=== PATIENT | female | born 1945 | race Caucasian/White ===

== ENCOUNTER 2019-01-23 15:49 | Inpatient (IN) ==
[2019-01-23] MEDS ORDERED: cefTRIAXone 1,000 MG in Water for inj. (sterile) 10 ML IVP ONE (16:10)
[2019-01-23] MEDS ORDERED: methylPREDNISolone 125 MG/2 ML VIAL IVP ONE (16:10)
[2019-01-23] MEDS ORDERED: Azithromycin 250 MG TABLET PO ONE (16:10)
[2019-01-23] MEDS ORDERED: Ipratropium/Albuterol Neb 3 ML IH ONE ×2 (16:12→18:49)
[2019-01-23] MEDS ORDERED: 0.9 % Sodium Chloride 1,000 ML IVC ONE (16:12)
--- NOTE | 2019-01-23 16:12 | Emergency Department Note ---
Disposition Clinical Impression: Acute exacerbation of chronic obstructive airways disease, Elevated lactic acid level Community acquired pneumonia Qualifiers: Laterality: unspecified laterality Qualified Code(s): J18.9 - Pneumonia, unspecified organism Disposition: Admitted As Inpatient Condition: Fair Time of Disposition: 00:42 General Adult HPI - General Chief complaint: ED Shortness of Breath/Dyspnea Stated complaint: sob Time Seen by Provider: 01/23/19 16:03 - History of Present Illness Pain Scale: 8 - Related Data Home Medications Medication Instructions Recorded Confirmed Escitalopram Oxalate 10 mg PO DAILY 01/16/19 01/23/19 Fluticasone Propionate [Flonase 1 spr NS DAILY 01/16/19 01/23/19 Allergy Relief] Gabapentin [Neurontin] 100 mg PO TID 01/16/19 01/23/19 Ipratropium/Albuterol Neb [Duoneb] 3 ml IH Q4HR 01/16/19 01/23/19 Melatonin [Melatin] 6 mg PO HS 01/16/19 01/23/19 Trazodone HCl 50 mg PO QPM PRN 01/16/19 01/23/19 predniSONE [PredniSONE] 10 mg PO DAILY 01/16/19 01/23/19 risperiDONE [Risperidone] 1 mg PO BID 01/16/19 01/23/19 Acetaminophen [Tylenol] 325 mg PO Q4HR PRN 01/23/19 01/23/19 Albuterol Sulfate [Ventolin Hfa] 2 puff IH Q4HR PRN 01/23/19 01/23/19 Fluconazole [Diflucan] 100 mg PO DAILY 01/23/19 01/23/19 Fluticasone/Salmeterol [Advair 1 puff IH BID 01/23/19 01/23/19 250-50 Diskus] Haloperidol [Haldol] 2.5 mg PO DAILY PRN 01/23/19 01/23/19 Insulin Glargine [Lantus] 10 unit SQ QPM 01/23/19 01/23/19 Insulin LISPRO [HumaLOG] 2 - 10 units SQ TIDWM 01/23/19 01/23/19 Lidocaine HCl [Lidocaine HCl 15 ml MM TID PRN 01/23/19 01/23/19 Viscous] Metformin HCl [Fortamet] 1,000 mg PO BID 01/23/19 01/23/19 Nicotine Patch [Nicoderm] 14 mg TD DAILY 01/23/19 01/23/19 Polyethylene Glycol 3350 [MiraLAX] 17 gm PO DAILY 01/23/19 01/23/19 Tiotropium [Spiriva] 18 mcg IH DAILY 01/23/19 01/23/19 Allergies Allergy/AdvReac Type Severity Reaction Status Date / Time No Known Allergies Allergy Verified 01/23/19 15:56 Past Medical History - Past Medical History Medical history: Reports: diabetes, TIA Psychiatric history: Reports: anxiety, bipolar, PTSD, schizophrenia, previous psychiatric hospitalization - Social History Smoking Status: Unknown if ever smoked Smokeless Tobacco Status: No Alcohol use: Reports: none Drug use: Reports: none Course Vital Signs Temperature 100.4 F H 01/23/19 15:56 Pulse Rate 102 01/23/19 15:56 Respiratory Rate 24 01/23/19 15:56 Blood Pressure 134/63 01/23/19 15:56 O2 Sat by Pulse Oximetry 96 01/23/19 15:56 Temperature 98.7 F 01/24/19 00:23 Pulse Rate 92 01/24/19 00:23 Respiratory Rate 17 01/24/19 00:23 Blood Pressure 151/69 01/24/19 00:23 O2 Sat by Pulse Oximetry 95 01/24/19 00:23 Oxygen Delivery Oxygen Delivery Nasal Cannula Medical Decision Making - Lab Data Result diagrams: 01/23/19 16:45 01/23/19 16:45 Lab Results 01/23/19 01/23/19 01/23/19 Range/Units 10:45 16:45 16:45 WBC 12.8 H (4.3-11.1) K/mcL RBC 3.54 L (3.82-4.97) M/mcL Hgb 10.1 L (11.5-15.4) g/dL Hct 34.0 L (35.3-44.9) % MCV 96.0 (83.0-100.0) fL MCH 28.5 (28.0-33.3) pg MCHC 29.7 L (31.6-35.5) g/dL RDW 15.2 H (11.5-14.5) % Plt Count 281 (140-400) K/mcL MPV 9.6 (9.4-12.4) fL Immature Gran % 0.8 (0-4) % Seg Neutrophils % 80.0 % Lymphocytes % 11.7 % Monocytes % 7.2 % Eosinophils % 0.0 % Basophils % 0.3 % Neutrophils # 10.2 H (1.6-8.9) K/mcL Lymphocytes # 1.5 (0.6-4.6) K/mcL Monocytes # 0.9 (0.0-1.3) K/mcL Eosinophils # 0.0 (0.0-0.6) K/mcL Basophils # 0.0 (0.0-0.2) K/mcL Sodium 145 (136-145) mEq/L Potassium 4.3 (3.5-5.1) mEq/L Chloride 96 L (98-107) mEq/L Carbon Dioxide 38 H (23-29) mEq/L BUN 19 (8-23) mg/dL Creatinine 0.73 (0.60-1.20) mg/dL Est GFR ( Amer) > 60 (> 60) Est GFR (Non-Af Amer) > 60 (> 60) BUN/Creatinine Ratio 26 (6-26) Glucose 155 H (70-105) mg/dL Calculated Osmolality 305 H (280-300) Lactic Acid 5.0 H* (0.5-2.2) mmol/L Calcium 9.4 (8.6-10.3) mg/dL Troponin I < 0.03 (< 0.04) ng/mL B-Natriuretic Peptide (Less than 100) pg/mL Urine Color (Yellow) Urine Clarity (Clear) Urine pH (5.0-8.0) pH Units Ur Specific [place] (1.010-1.025) Urine Protein (Neg-Trace) mg/dL Urine Glucose (UA) (Normal) mg/dL Urine Ketones (Negative) mg/dL Urine Blood (Negative) Urine Nitrite (Negative) Urine Bilirubin (Negative) Urine Urobilinogen (Normal) mg/dL Ur Leukocyte Esterase (Negative) Urine Microscopic RBC (0-3) per hpf Urine Microscopic WBC (0-3) per hpf Ur Squamous Epith Cells (None-Few) per lpf Urine Bacteria (None-Few) per hpf Hyaline Casts (None-Few) per lpf Ur Culture Indicated? (NO) 01/23/19 01/23/19 01/23/19 Range/Units 16:45 18:16 19:24 WBC (4.3-11.1) K/mcL RBC (3.82-4.97) M/mcL Hgb (11.5-15.4) g/dL Hct (35.3-44.9) % MCV (83.0-100.0) fL MCH (28.0-33.3) pg MCHC (31.6-35.5) g/dL RDW (11.5-14.5) % Plt Count (140-400) K/mcL MPV (9.4-12.4) fL Immature Gran % (0-4) % Seg Neutrophils % % Lymphocytes % % Monocytes % % Eosinophils % % Basophils % % Neutrophils # (1.6-8.9) K/mcL Lymphocytes # (0.6-4.6) K/mcL Monocytes # (0.0-1.3) K/mcL Eosinophils # (0.0-0.6) K/mcL Basophils # (0.0-0.2) K/mcL Sodium (136-145) mEq/L Potassium (3.5-5.1) mEq/L Chloride (98-107) mEq/L Carbon Dioxide (23-29) mEq/L BUN (8-23) mg/dL Creatinine (0.60-1.20) mg/dL Est GFR ( Amer) (> 60) Est GFR (Non-Af Amer) (> 60) BUN/Creatinine Ratio (6-26) Glucose (70-105) mg/dL Calculated Osmolality (280-300) Lactic Acid 3.9 H (0.5-2.2) mmol/L Calcium (8.6-10.3) mg/dL Troponin I (< 0.04) ng/mL B-Natriuretic Peptide 41 (Less than 100) pg/mL Urine Color Yellow (Yellow) Urine Clarity Clear (Clear) Urine pH 6.0 (5.0-8.0) pH Units Ur Specific [place] 1.019 (1.010-1.025) Urine Protein 30 H (Neg-Trace) mg/dL Urine Glucose (UA) Normal (Normal) mg/dL Urine Ketones Trace H (Negative) mg/dL Urine Blood Small H (Negative) Urine Nitrite Negative (Negative) Urine Bilirubin Negative (Negative) Urine Urobilinogen Normal (Normal) mg/dL Ur Leukocyte Esterase Negative (Negative) Urine Microscopic RBC 15-30 H (0-3) per hpf Urine Microscopic WBC 5-15 H (0-3) per hpf Ur Squamous Epith Cells Many H (None-Few) per lpf Urine Bacteria None Seen (None-Few) per hpf Hyaline Casts None Seen (None-Few) per lpf Ur Culture Indicated? YES A (NO) 01/23/19 Range/Units 20:43 WBC (4.3-11.1) K/mcL RBC (3.82-4.97) M/mcL Hgb (11.5-15.4) g/dL Hct (35.3-44.9) % MCV (83.0-100.0) fL MCH (28.0-33.3) pg MCHC (31.6-35.5) g/dL RDW (11.5-14.5) % Plt Count (140-400) K/mcL MPV (9.4-12.4) fL Immature Gran % (0-4) % Seg Neutrophils % % Lymphocytes % % Monocytes % % Eosinophils % % Basophils % % Neutrophils # (1.6-8.9) K/mcL Lymphocytes # (0.6-4.6) K/mcL Monocytes # (0.0-1.3) K/mcL Eosinophils # (0.0-0.6) K/mcL Basophils # (0.0-0.2) K/mcL Sodium (136-145) mEq/L Potassium (3.5-5.1) mEq/L Chloride (98-107) mEq/L Carbon Dioxide (23-29) mEq/L BUN (8-23) mg/dL Creatinine (0.60-1.20) mg/dL Est GFR ( Amer) (> 60) Est GFR (Non-Af Amer) (> 60) BUN/Creatinine Ratio (6-26) Glucose (70-105) mg/dL Calculated Osmolality (280-300) Lactic Acid 2.5 H (0.5-2.2) mmol/L Calcium (8.6-10.3) mg/dL Troponin I (< 0.04) ng/mL B-Natriuretic Peptide (Less than 100) pg/mL Urine Color (Yellow) Urine Clarity (Clear) Urine pH (5.0-8.0) pH Units Ur Specific [place] (1.010-1.025) Urine Protein (Neg-Trace) mg/dL Urine Glucose (UA) (Normal) mg/dL Urine Ketones (Negative) mg/dL Urine Blood (Negative) Urine Nitrite (Negative) Urine Bilirubin (Negative) Urine Urobilinogen (Normal) mg/dL Ur Leukocyte Esterase (Negative) Urine Microscopic RBC (0-3) per hpf Urine Microscopic WBC (0-3) per hpf Ur Squamous Epith Cells (None-Few) per lpf Urine Bacteria (None-Few) per hpf Hyaline Casts (None-Few) per lpf Ur Culture Indicated? (NO) Attestation Statement - Attestation Attestation: I reviewed the residents documentation and agree with the residents assessment and plan of care. I have personally had face to face time with the patient. (Brief History, Brief Exam, and MDM) I personally supervised and was present for the neville/critical portions of the following procedures completed by the resident: (add procedures performed here). [id number] time provided Patient was complaining of dyspnea. She is febrile. Concern for pneumonia. She has a known history of oxygen-dependent COPD. I attest to supervising the resident physician's interpretation of the ECG
--- NOTE | 2019-01-23 16:48 | Emergency Department Note ---
Disposition Clinical Impression: Acute exacerbation of chronic obstructive airways disease, Elevated lactic acid level Community acquired pneumonia Qualifiers: Laterality: unspecified laterality Qualified Code(s): J18.9 - Pneumonia, unspecified organism Disposition: Admitted As Inpatient Condition: Fair Forms: ED Satisfaction Letter Time of Disposition: 18:32 SOB HPI - General Chief Complaint: ED Shortness of Breath/Dyspnea Stated Complaint: sob Time Seen by Provider: 01/23/19 16:03 Source: patient Limitations: no limitations Nursing Notes Reviewed: Yes Vital Signs Reviewed: Yes - History of Present Illness 73-year-old female presented here to the emergency department for shortness of breath. Patient does have a extensive COPD history where she is on 2-4 L of oxygen at all times she does still smoke approximately 3-4 packs per day still. She has been doing that for approximate 70 years. She says she had a fever today also complaining of more worsening time breathing have worsening cough. Otherwise patient has no other complaints at this time. She has no nausea no vomiting no pain in the abdomen no chest pain. Patient does have history of schizophrenia was recently placed in a [facility] due to being homeless having very bad COPD and not able to take care of herself. Patient otherwise has no ot her complaints at this time. - Related Data Home Medications Medication Instructions Recorded Confirmed Escitalopram Oxalate 10 mg PO DAILY 01/16/19 01/16/19 Fluticasone Propionate [Flonase 9.9 ml NS DAILY 01/16/19 01/16/19 Allergy Relief] Fluticasone/Vilanterol [Breo 1 puff IH DAILY 01/16/19 01/16/19 Ellipta 100-25 Mcg INH] Gabapentin [Neurontin] 100 mg PO TID 01/16/19 01/16/19 Insulin Glargine,Hum.rec.anlog 10 unit SQ HS 01/16/19 01/16/19 [Basaglar Kwikpen U-100] Insulin LISPRO [Humalog Kwikpen 100 unit SQ QID 01/16/19 01/16/19 U-100] Ipratropium/Albuterol Neb [Duoneb] 3 ml IH Q4HR 01/16/19 01/16/19 Melatonin [Melatin] 6 mg PO HS 01/16/19 01/16/19 RisperiDONE [Risperdal] 0.5 mg PO 0600 01/16/19 01/16/19 Trazodone HCl 50 mg PO HS 01/16/19 01/16/19 metFORMIN [Glucophage] 1,000 mg PO 0800 01/16/19 01/16/19 predniSONE [PredniSONE] 10 mg PO DAILY 01/16/19 01/16/19 risperiDONE [Risperidone] 1 mg PO HS 01/16/19 01/16/19 Previous Rx's Medication Instructions Recorded levoFLOXacin [Levaquin] 500 mg PO DAILY #6 tablet 01/17/19 Allergies Allergy/AdvReac Type Severity Reaction Status Date / Time No Known Allergies Allergy Verified 01/23/19 15:56 All systems ED: reviewed and negative except as stated. Review of Systems: As Per HPI Past Medical History - Past Medical History Attestation: Yes The following information was validated with the patient. Source: patient Medical history: Reports: COPD, diabetes, kidney stones, TIA Psychiatric history: Reports: anxiety, bipolar, PTSD, schizophrenia, previous psychiatric hospitalization - Social History Smoking Status: Current every day smoker Smokeless Tobacco Status: No Alcohol use: Reports: none Drug use: Reports: none Physical Exam - General Limitations: no limitations General appearance: alert - Head Head exam: atraumatic, normocephalic, normal inspection - Eye Eye exam: Present: normal appearance, PERRL, EOMI - ENT ENT exam: normal exam, normal oropharynx, mucous membranes moist - Neck Neck exam: Present: normal inspection, full ROM, trachea midline - Chest Chest inspection: Present: normal inspection, symmetric chest wall rise - Respiratory Respiratory exam: Present: wheezes, accessory muscle use, prolonged expiratory phase. Absent: respiratory distress - Cardiovascular Cardiovascular exam: Present: regular rate, normal rhythm, normal heart sounds - Abdominal Exam Abdominal exam: Present: soft, Non-Tender. Absent: tenderness, distention, guarding, rebound, rigidity - Extremities Exam Extremities exam: Present: normal inspection, full ROM. Absent: tenderness, pedal edema - Back Exam Back exam: Present: normal inspection, full ROM. Absent: tenderness - Neurological Exam Neurological exam: Present: alert, oriented X3 - Skin Skin exam: Present: warm, dry, intact, normal color Course Course Narrative: 73-year-old female presented to the emergency department with shortness of breath. Patient did have fever 100.4 when she arrived. We will get blood cultures. She is not in severe sepsis or septic shock at this time. Patient does have history of easily and fluid overload according to her so will not give her the full 30 L/kg bolus. Patient's okay with that plan. We will give her azithromycin as well as ceftriaxone as this most likely is either community acquired pneumonia secondary to patient's COPD exacerbation. Also gave her DuoNeb's as well as Solu-Medrol. Patient okay with this plan. Patient will be admitted to the hospitalist service for further evaluation. Vital Signs Temperature 100.4 F H 01/23/19 15:56 Pulse Rate 102 01/23/19 15:56 Respiratory Rate 24 01/23/19 15:56 Blood Pressure 134/63 01/23/19 15:56 O2 Sat by Pulse Oximetry 96 01/23/19 15:56 Temperature 100.4 F H 01/23/19 16:37 Pulse Rate 102 01/23/19 16:37 Respiratory Rate 20 01/23/19 16:56 Blood Pressure 134/63 01/23/19 16:37 O2 Sat by Pulse Oximetry 100 01/23/19 16:56 Oxygen Delivery Oxygen Delivery Room Air Shortness of Breath/Dyspnea - MDM Narrative Medical decision making narrative: 73-year-old female presented here shortness of breath. She is a full code. She did respond well to after the DuoNeb's also received Solu-Medrol. Patient received azithromycin and ceftriaxone for possible community acquired pneumonia. She had elevated lactate as well as a fever. I do not see patient is being in septic shock at this time or having severe sepsis due to the elevated lactate pending time lactate is ordered. We will also give patient a 1 L IV fluid bolus. She has a history of fluid overload said not to give her anymore patient's blood pressure has been stable during her whole stay here. Chest x- ray did not show pneumonia but did show really bad COPD. Nicotine patch was given. Patient was admitted to the hospitalist service I spoke with Dr. Dumas who agreed to admit the patient to their service. Patient's admitted in stable condition. Chest X-Ray 01/23/19 16:10 IMPRESSION: No acute cardiopulmonary disease. COPD. D/ / Kvng Johnson MD / Kvng Johnson MD Interpreting Provider: Kvng Johnson MD - Medical Records Medical records reviewed: Yes I reviewed the patient's medical records. - Lab Data Lab results reviewed: Yes I reviewed the patient's lab results. Result diagrams: 01/23/19 16:45 01/23/19 16:45 Lab Results 01/23/19 01/23/19 01/23/19 Range/Units 10:45 16:45 16:45 WBC 12.8 H (4.3-11.1) K/mcL RBC 3.54 L (3.82-4.97) M/mcL Hgb 10.1 L (11.5-15.4) g/dL Hct 34.0 L (35.3-44.9) % MCV 96.0 (83.0-100.0) fL MCH 28.5 (28.0-33.3) pg MCHC 29.7 L (31.6-35.5) g/dL RDW 15.2 H (11.5-14.5) % Plt Count 281 (140-400) K/mcL MPV 9.6 (9.4-12.4) fL Immature Gran % 0.8 (0-4) % Seg Neutrophils % 80.0 % Lymphocytes % 11.7 % Monocytes % 7.2 % Eosinophils % 0.0 % Basophils % 0.3 % Neutrophils # 10.2 H (1.6-8.9) K/mcL Lymphocytes # 1.5 (0.6-4.6) K/mcL Monocytes # 0.9 (0.0-1.3) K/mcL Eosinophils # 0.0 (0.0-0.6) K/mcL Basophils # 0.0 (0.0-0.2) K/mcL Sodium 145 (136-145) mEq/L Potassium 4.3 (3.5-5.1) mEq/L Chloride 96 L (98-107) mEq/L Carbon Dioxide 38 H (23-29) mEq/L BUN 19 (8-23) mg/dL Creatinine 0.73 (0.60-1.20) mg/dL Est GFR ( Amer) > 60 (> 60) Est GFR (Non-Af Amer) > 60 (> 60) BUN/Creatinine Ratio 26 (6-26) Glucose 155 H (70-105) mg/dL Calculated Osmolality 305 H (280-300) Lactic Acid 5.0 H* (0.5-2.2) mmol/L Calcium 9.4 (8.6-10.3) mg/dL Troponin I < 0.03 (< 0.04) ng/mL B-Natriuretic Peptide (Less than 100) pg/mL 01/23/19 Range/Units 16:45 WBC (4.3-11.1) K/mcL RBC (3.82-4.97) M/mcL Hgb (11.5-15.4) g/dL Hct (35.3-44.9) % MCV (83.0-100.0) fL MCH (28.0-33.3) pg MCHC (31.6-35.5) g/dL RDW (11.5-14.5) % Plt Count (140-400) K/mcL MPV (9.4-12.4) fL Immature Gran % (0-4) % Seg Neutrophils % % Lymphocytes % % Monocytes % % Eosinophils % % Basophils % % Neutrophils # (1.6-8.9) K/mcL Lymphocytes # (0.6-4.6) K/mcL Monocytes # (0.0-1.3) K/mcL Eosinophils # (0.0-0.6) K/mcL Basophils # (0.0-0.2) K/mcL Sodium (136-145) mEq/L Potassium (3.5-5.1) mEq/L Chloride (98-107) mEq/L Carbon Dioxide (23-29) mEq/L BUN (8-23) mg/dL Creatinine (0.60-1.20) mg/dL Est GFR ( Amer) (> 60) Est GFR (Non-Af Amer) (> 60) BUN/Creatinine Ratio (6-26) Glucose (70-105) mg/dL Calculated Osmolality (280-300) Lactic Acid (0.5-2.2) mmol/L Calcium (8.6-10.3) mg/dL Troponin I (< 0.04) ng/mL B-Natriuretic Peptide 41 (Less than 100) pg/mL - Radiology Data Radiology results reviewed: Yes I reviewed the patient's radiology results. - EKG Data EKG attestation: Yes I reviewed and interpreted this EKG. EKG results narrative: EKG done at 1654 review myself and the attending shows sinus rhythm rate of 93, ME interval 147, QRS 79, QTc 411. Is no acute ST changes no acute T-wave changes no signs of ischemia. No signs of hypertrophy compression, heart block. No WPW/Brugada/HOCM. No old EKG to compare with.
[2019-01-23 17:03] LABS: Basophils % 0.3 %; Hemoglobin 10.1 g/dL (11.5-15.4); Immature Granulocytes % 0.8 % (0-4); Lymphocytes # 1.5 K/mcL (0.6-4.6); Lymphocytes % 11.7 %; Mean Corpuscular HGB Conc 29.7 g/dL (31.6-35.5); Mean Corpuscular Hemoglobin 28.5 pg (28.0-33.3); Mean Platelet Volume 9.6 fL (9.4-12.4); Monocytes # 0.9 K/mcL (0.0-1.3); Monocytes % 7.2 %; Neutrophils # 10.2 K/mcL (1.6-8.9); Platelet Count 281 K/mcL (140-400); Red Blood Count 3.54 M/mcL (3.82-4.97); Red Cell Distribution Width 15.2 % (11.5-14.5); White Blood Count 12.8 K/mcL (4.3-11.1)
[2019-01-23 17:24] LABS: BUN/Creatinine Ratio 26 (6-26); Blood Urea Nitrogen 19 mg/dL (8-23); Calcium 9.4 mg/dL (8.6-10.3); Carbon Dioxide 38 mEq/L (23-29); Chloride 96 mEq/L (98-107); Glucose 155 mg/dL (70-105); Osmolality,Calculated 305 (280-300); Potassium 4.3 mEq/L (3.5-5.1); Sodium 145 mEq/L (136-145); eGFR For African Americans > 60 (> 60); eGFR For Non-African Americans > 60 (> 60)
[2019-01-23 17:25] LABS: Troponin I < 0.03 ng/mL (< 0.04)
[2019-01-23] MEDS ORDERED: Nicotine 21 MG PATCH.TD24 TD STA (17:53)
[2019-01-23 19:55] LABS: Bilirubin,Urine Negative (Negative); Blood,Urine Small (Negative); Clarity,Urine Clear (Clear); Color,Urine Yellow (Yellow); Glucose,Urine (UA) Normal (Normal); Ketones,Urine Trace mg/dL (Negative); Leukocyte Esterase,Urine Negative (Negative); Nitrite,Urine Negative (Negative); Protein,Urine 30 mg/dL (Neg-Trace); Specific Gravity,Urine 1.019 (1.010-1.025); Urobilinogen,Urine Normal (Normal)
[2019-01-23 19:57] LABS: Bacteria,Urine None Seen per hpf (None-Few); Hyaline Casts,Urine None Seen per lpf (None-Few); RBC,Urine 15-30 per hpf (0-3); Squamous Epithelial Cell,Urine Many per lpf (None-Few)
[2019-01-23] MEDS ORDERED: D5% in Water 1,000 ML IVC PRN (22:39)
[2019-01-23] MEDS ORDERED: Dextrose Gel 15 GM/37.5 ML TUBE PO PRN ×2 (22:39)
[2019-01-23] MEDS ORDERED: *HR* Dextrose 50 % in Water (Syg) 50 ML SYRINGE IVP PRN (22:39)
[2019-01-23] MEDS: Albuterol 2.5 MG/3 ML NEBULIZER IH PRN (23:06)
[2019-01-23] MEDS: Insulin LISPRO 300 UNITS/3 ML VIAL SQ SCH (23:15)
[2019-01-24] MEDS: Acetaminophen 325 MG TABLET PO PRN (00:05)
[2019-01-24] MEDS: Melatonin 3 MG TABLET PO SCH ×2 (00:06→20:36)
[2019-01-24] MEDS: Gabapentin 100 MG CAPSULE PO SCH ×4 (00:06→20:39)
[2019-01-24] MEDS ORDERED: Naloxone 0.4 MG/ML INJ IVP PRN (01:11)
[2019-01-24] MEDS ORDERED: 0.9 % Sodium Chloride 1,000 ML IVC ONE (01:13)
--- NOTE | 2019-01-24 01:20 | Internal Med History&Physical ---
Date of Encounter: 01/24/19 Time of Encounter: 00:42 Internal Medicine - H&P: HPI Chief complaint: COPD exacerbation Admitted From: Emergency Dept Plans for Post Hospital Care: Home History of present illness: Ms. Stanley is a 73 year old female Patient presents the emergency department with shortness of breath. She has a known history of COPD and uses oxygen at home at 2 L. She says that her symptoms have become increasingly worse, particularly with stress and over the last 2 weeks she has noted that her breathing treatments and increasing her oxygen has not helped. She has a cough that is productive of clear sputum. According to ER documentation patient has a history of schizophrenia and has been placed in a care home for this reason. She does appear to answer her questions appropriately and is cooperative with my exam. In the emergency department patient's initial vital signs demonstrated an ini tial temperature of 100.4, pulse of 102 and respiratory rate of 24. Blood pressure 134/63 and O2 saturation was 99% on 4 L. CBC: White count 12.8, hemoglobin 10.1, platelets 281 BMP: Sodium 145, potassium 4.3, carbon dioxide 38, chloride 96, BU when 19, creatinine 0.73, glucose 155. Initial troponin undetectable Lactic acid: 5, trending down to 3.9, then 2.5. BNP 41 Urinalysis: 30 protein, trace ketones, small blood, 5-15 white blood cells, negative nitrite and negative leukocyte esterase. No bacteria seen Chest x-ray: No acute cardiopulmonary disease. COPD with prominent bolus changes in the upper lung concepcion right greater than left. There is a metallic fragment noted projecting in the right base, which has been seen before. EKG: Sinus with a rate of 93, QTc 411 no ischemic changes. In the emergency room, patient received 1 L of IV fluids, azithromycin, ceftriaxone, breathing treatments, IV steroids and a nicotine patch. She was admitted to the hospital for further management. Upon my evaluation, patient is resting comfortably in hospital bed in no acute distress. She denies chest pain, abdominal pain, nausea, vomiting, diarrhea and constipation. She is a chronic smoker for many years, stating that since she has been moved to the care home she smokes about one pack of cigarettes daily. She is a full code. Past Med Surg Social Fam HX - Past Medical History Medical history: COPD, diabetes, kidney stones, TIA Additional medical history: Neuropathy,unknown if has other history Psychiatric history: anxiety, bipolar, PTSD, schizophrenia, previous psychiatric hospitalization - Past Surgical History Surgical History: appendectomy Additional surgical history: unknown surgical history - Social History Smoking Status: Current every day smoker Packs per day: 12 cigaretts a day Smokeless Tobacco Status: No Alcohol use: none Drug use: none - Family History Mother Hx Family Respiratory Disorders: Yes Father Hx Family Respiratory Disorders: Yes Internal Medicine - H&P: Meds Escitalopram Oxalate 10 mg PO DAILY 01/16/19 [History] Fluticasone Propionate [Flonase Allergy Relief] 1 spr NS DAILY 01/16/19 [History] Gabapentin [Neurontin] 100 mg PO TID 01/16/19 [History] Ipratropium/Albuterol Neb [Duoneb] 3 ml IH Q4HR 01/16/19 [History] Melatonin [Melatin] 6 mg PO HS 01/16/19 [History] Trazodone HCl 50 mg PO QPM PRN 01/16/19 [History] predniSONE [PredniSONE] 10 mg PO DAILY 01/16/19 [History] risperiDONE [Risperidone] 1 mg PO BID 01/16/19 [History] Acetaminophen [Tylenol] 325 mg PO Q4HR PRN 01/23/19 [History] Albuterol Sulfate [Ventolin Hfa] 2 puff IH Q4HR PRN 01/23/19 [History] Fluconazole [Diflucan] 100 mg PO DAILY 01/23/19 [History] Fluticasone/Salmeterol [Advair 250-50 Diskus] 1 puff IH BID 01/23/19 [History] Haloperidol [Haldol] 2.5 mg PO DAILY PRN 01/23/19 [History] Insulin Glargine [Lantus] 10 unit SQ QPM 01/23/19 [History] Insulin LISPRO [HumaLOG] 2 - 10 units SQ TIDWM 01/23/19 [History] Lidocaine HCl [Lidocaine HCl Viscous] 15 ml MM TID PRN 01/23/19 [History] Metformin HCl [Fortamet] 1,000 mg PO BID 01/23/19 [History] Nicotine Patch [Nicoderm] 14 mg TD DAILY 01/23/19 [History] Polyethylene Glycol 3350 [MiraLAX] 17 gm PO DAILY 01/23/19 [History] Tiotropium [Spiriva] 18 mcg IH DAILY 01/23/19 [History] Allergy/AdvReac Type Severity Reaction Status Date / Time No Known Allergies Allergy Verified 01/23/19 15:56 All Systems PM: A 10-system review of systems was performed and is negative for pertinent findings except as documented above in the HPI. - Constitutional Vitals: Temp Pulse Resp BP Pulse Ox 98.7 F 92 17 151/69 95 01/24/19 00:23 01/24/19 00:23 01/24/19 00:23 01/24/19 00:23 01/24/19 00:23 General appearance: Present: cooperative, A&O X 3, pleasant, no acute distress, answers questions appropriately Exam: - - Head Head exam: Present: normal inspection - Eye Eye exam: Present: EOMI, normal appearance - Respiratory Respiratory exam: Present: wheezes. Absent: CTAB, rales, respiratory distress - Cardiovascular Cardiovascular exam: Present: RRR. Absent: diastolic murmur, systolic murmur - GI/Abdominal GI/Abdominal exam: Present: normal bowel sounds, soft. Absent: tenderness - Extremities Exam Extremities exam: Present: warm, radial pulses palpable and symmetrical. Absent: calf tenderness, pedal edema, tenderness - Neurological Exam Neurological exam: Present: no focal deficits, strengths equal and symetr throughout. Absent: motor sensory deficit, facial droop, speech deficit - Psychiatric Psychiatric exam: Present: anxious. Absent: agitated - Skin Skin exam: Present: dry, normal color, warm Internal Med - H&P Results - Labs CBC & Chem 7: 01/24/19 03:55 01/24/19 03:55 Labs: Short CBC 01/23/19 Range/Units 16:45 WBC 12.8 H (4.3-11.1) K/mcL Hgb 10.1 L (11.5-15.4) g/dL Hct 34.0 L (35.3-44.9) % Plt Count 281 (140-400) K/mcL Neutrophils # 10.2 H (1.6-8.9) K/mcL BMP 01/23/19 16:45 Sodium 145 Potassium 4.3 Chloride 96 L Carbon Dioxide 38 H BUN 19 Creatinine 0.73 Glucose 155 H Calcium 9.4 Cardiac Enzymes 01/23/19 Range/Units 16:45 Troponin I < 0.03 (< 0.04) ng/mL Urine 01/23/19 Range/Units 19:24 Urine Color Yellow (Yellow) Urine Clarity Clear (Clear) Urine pH 6.0 (5.0-8.0) pH Units Ur Specific [place] 1.019 (1.010-1.025) Urine Protein 30 H (Neg-Trace) mg/dL Urine Glucose (UA) Normal (Normal) mg/dL - Impressions ITS Impressions Chest X-Ray 01/23/19 16:10 IMPRESSION: No acute cardiopulmonary disease. COPD. D/ / Kvng Johnson MD / Kvng Johnson MD Interpreting Provider: Kvng Johnson MD - Assessment and Plan (1) Acute exacerbation of chronic obstructive airways disease Current Visit: Yes Status: Acute Assessment and plan: Patient's breathing improved with the breathing treatments received in the emergency room. Saturations have been in the mid 90s. Patient was started on antibiotics for suspected pneumonia which could have triggered the COPD ex acerbation. Chest x-ray was clear however she does have fever and did initially meet sepsis criteria and had elevated lactic acid of 5. This has trended down to 2.5 at this time. Blood cultures were drawn. Continue oxygen supplementation as needed Continue breathing treatments Continue prednisone 40 mg by mouth daily Follow-up blood cultures Continue antibiotics (2) Elevated lactic acid level Current Visit: Yes Status: Acute Assessment and plan: Lactic acid of 5.0 in the emergency room, trending down to via 2.5. Patient received 1 L of IV fluids and has been put on oxygen and given breathing treatments which is likely resulted in this improvement. Repeat lactic acid until within normal limits Continue oxygen supplementation Continue maintenance IV fluids (3) Hypertension Current Visit: Yes Status: Acute Assessment and plan: Patient had an elevated blood pressure reading of 177/69. She does not take blood pressure medicines at home. When necessary hydralazine Continue to monitor Qualifiers: Hypertension type: unspecified Qualified Code(s): I10 - Essential (primary) hypertension (4) Pneumonia Current Visit: No Status: Acute Assessment and plan: Patient has had a cough which is productive of clear sputum. She says sometimes her sputum is green however. Chest x-ray did not demonstrate consolidation. She received ceftriaxone and azithromycin in the ER. Blood cultures were drawn. Continue IV antibiotics. Follow-up blood cultures when available Oxygen supplementation as needed Monitor for worsening signs of infection Trending lactic acid to within normal limits Qualifiers: Pneumonia type: due to unspecified organism Laterality: unspecified laterality Lung location: unspecified part of lung Qualified Code(s): J18.9 - Pneumonia, unspecified organism (5) Diabetes Current Visit: Yes Status: Acute Assessment and plan: Patient is an insulin dependent diabetic Monitor sugars ACHS Diabetic diet Low dose insulin sliding scale as needed Hold home meds. 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
[2019-01-24 04:19] LABS: Hematocrit 33.3 % (35.3-44.9); Hemoglobin 9.8 g/dL (11.5-15.4); Mean Corpuscular HGB Conc 29.4 g/dL (31.6-35.5); Mean Corpuscular Hemoglobin 28.2 pg (28.0-33.3); Mean Platelet Volume 9.6 fL (9.4-12.4); Platelet Count 259 K/mcL (140-400); Red Blood Count 3.47 M/mcL (3.82-4.97); White Blood Count 14.2 K/mcL (4.3-11.1)
[2019-01-24] MEDS: Ipratropium/Albuterol Neb 3 ML IH SCH ×5 (04:27→22:41)
[2019-01-24 04:37] LABS: BUN/Creatinine Ratio 27 (6-26); Blood Urea Nitrogen 18 mg/dL (8-23); Carbon Dioxide 39 mEq/L (23-29); Chloride 101 mEq/L (98-107); Glucose 179 mg/dL (70-105); Osmolality,Calculated 304 (280-300); Potassium 4.4 mEq/L (3.5-5.1); Sodium 144 mEq/L (136-145); eGFR For African Americans > 60 (> 60); eGFR For Non-African Americans > 60 (> 60)
[2019-01-24] MEDS: *HR* Heparin 5,000 UNIT/ML VIAL SQ SCH ×2 (05:33→19:13)
[2019-01-24] MEDS ORDERED: predniSONE 20 MG TABLET PO SCH (09:00)
[2019-01-24] MEDS ORDERED: cefTRIAXone 1,000 MG in Water for inj. (sterile) 10 ML IVP SCH (09:00)
[2019-01-24] MEDS ORDERED: risperiDONE 1 MG TABLET PO SCH (09:00)
[2019-01-24] MEDS: Insulin LISPRO 300 UNITS/3 ML VIAL SQ SCH ×4 (09:20→20:19)
--- NOTE | 2019-01-24 09:41 | Internal Med Progress Note ---
Hospitalist Progress Note - Encounter Date of Encounter: 01/24/19 Time of Encounter: 09:38 - Subjective Interval History: The patient was seen and examined at the bedside. Patient in severe respiratory distress because of the COPD exacerbation with severe chest wheezing has incomplete sentences because of the respiratory distress Order BiPAP stat switch her to IV steroid with breathing treatments budesonide inhaler Transfer the patient to stepdown unit Ordered CAT scan of the chest Check ABG Nothing by mouth and swallow eval - Exam Vitals: Temp Pulse Resp BP Pulse Ox 99.0 F 76 28 175/77 91 01/24/19 07:52 01/24/19 07:52 01/24/19 09:20 01/24/19 07:52 01/24/19 09:20 Exam: Physical examination: Gen.: Patient is alert in sever respiratory distress , not in pain HEENT: perrla , EOMI, no thyroid gland enlargement, no neck mass, supple neck Heart: S1 and S2 tracy, tachycardia, no cardiac murmur no gallop rhythm Chest: Diminished breathing bilaterally with severe diffuse chest wheezing on prolonged expiratory phase Abdomen: Soft nontender nondistended positive bowel sounds, no organomegaly Extremities: No pitting edema, peripheral pulses palpable, no cyanosis tenderness Neuro: Able to move all 4 limbs DVT Prophylaxis: heparin - Summary of Assessment and Plan Summary of Assessment and Plan: 1- acute on chronic hypoxic respiratory failure secondary to COPD exacerbation: Started on BiPAP because of the severe respiratory distress Continue on supplemental oxygen to keep O2 sat 90-94% Started on IV steroid Solu-Medrol Continue on breathing treatment and add budesonide inhaler Continue on IV antibiotic Check serum procalcitonin Order CT chest Order ABG 2- acute COPD exacerbation as above in 1 Counseled to stop smoking On nicotine patch 3- elevated lactic acid most likely due to excessive respiratory muscle use secondary to respiratory distress Lactic acid trending down to 0.5 on iv fluid 4- possible pneumonia patient has history of productive cough Order CAT scan of the chest Follow sputum culture Continue on IV antibiotic serum procal 5- diabetes: Continue on insulin on sliding scale correction Check blood sugar before meals - Time Spent with Patient Total time spent is greater than 50% in coordination of care (as documented) at patient's floor/unit and/or counseling patient: Internal Medicine: Result - Labs CBC & Chem 7: 01/24/19 03:55 01/24/19 03:55 Labs: Short CBC 01/23/19 01/24/19 Range/Units 16:45 03:55 WBC 12.8 H 14.2 H (4.3-11.1) K/mcL Hgb 10.1 L 9.8 L (11.5-15.4) g/dL Hct 34.0 L 33.3 L (35.3-44.9) % Plt Count 281 259 (140-400) K/mcL Neutrophils # 10.2 H (1.6-8.9) K/mcL BMP 01/23/19 01/24/19 16:45 03:55 Sodium 145 144 Potassium 4.3 4.4 Chloride 96 L 101 Carbon Dioxide 38 H 39 H BUN 19 18 Creatinine 0.73 0.67 Glucose 155 H 179 H Calcium 9.4 9.0 Cardiac Enzymes 01/23/19 Range/Units 16:45 Troponin I < 0.03 (< 0.04) ng/mL Urine 01/23/19 Range/Units 19:24 Urine Color Yellow (Yellow) Urine Clarity Clear (Clear) Urine pH 6.0 (5.0-8.0) pH Units Ur Specific [place] 1.019 (1.010-1.025) Urine Protein 30 H (Neg-Trace) mg/dL Urine Glucose (UA) Normal (Normal) mg/dL - Impressions Impressions Chest X-Ray 01/23/19 16:10 IMPRESSION: No acute cardiopulmonary disease. COPD. D/ / Kvng Johnson MD / Kvng Johnson MD Interpreting Provider: Kvng Johnson MD Consult Discharge Plan - Plan Referrals: NONE,PCP [Primary Care Provider] -
--- NOTE | 2019-01-24 10:44 | Event Note ---
Date of Encounter: 01/24/19 Time of Encounter: 10:40 the patient is transferred to ICU for sever respiratory distress i spoke with organ recovery coordinator who accept patient Dr AKHTAR TAKE OVER PATIENT CARE AT 10:44 am 01/24
[2019-01-24] MEDS ORDERED: *HR* LORazepam 2 MG/ML VIAL IVP ONE (10:46)
[2019-01-24] MEDS ORDERED: Ipratropium/Albuterol Neb 3 ML IH ONE (10:52)
[2019-01-24] MEDS ORDERED: Ipratropium/Albuterol Neb 3 ML ONE (10:53)
--- NOTE | 2019-01-24 10:57 | Pulmonology Consult Note ---
<Clara Cai - Last Filed: 01/24/19 15:24> Date of Encounter: 01/24/19 Time of Encounter: 10:53 Assessment and Plan (1) Acute exacerbation of chronic obstructive airways disease Current Visit: Yes Status: Acute * Patient has significant work of breathing with diffuse wheezing throughout * Will continue with scheduled nebulizers, we will give triple duoneb now along with trial of BiPAP * CT chest ordered by hospitalist pending * 1 mg Ativan given for agitation and anxiety regarding BiPAP and the patient has had significant anxiolysis and she is able to tolerate BiPAP, will add precedex as needed * We will continue with scheduled IV steroids * Repeat chest x-ray to evaluate for consolidation * Patient adamently declines the desire to be intubated - she is alert and oriented x3 though she is agitated. She does however state that if her heart stops she would want us to "do what needed to be done". Attempted to ask again to assess if she wishes a code status change given she is full code but she continues to be agitated and given her significant work of breathing will reattempt this discussion when more calm * ABG shows acidosis and hypercarbia, will redraw approximately 2 hours after changing vent settings to increase respiratory rate (2) Community acquired pneumonia Current Visit: Yes Status: Acute * Patient currently been treated with rocephin and azithromycin for possible community-acquired pneumonia * Patient did have elevated lactate and leukocytosis upon arrival * Will draw procalcitonin to determine need for continued treatment Qualifiers: Laterality: unspecified laterality Qualified Code(s): J18.9 - Pneumonia, unspecified organism (3) Nicotine use disorder Current Visit: Yes Status: Acute * Nicotine patch (4) DVT prophylaxis Current Visit: Yes Status: Acute * Heparin SubQ History of Present Illness Consult date: 01/24/19 Requesting physician: Elsa Dias History of present illness: 73-year-old female with history of COPD who presented the emergency department on 01/23/19 secondary to shortness of breath. The patient has 2 L nasal cannula at home, progressively worsening over the last 2 weeks prior to arrival. She has productive cough of some clear sputum. The patient had elevated lactate up to 5.0, BNP 41, slight leukocytosis up to 12.8 with anemia of 10.1. Chest x-ray shows no evidence of focal consolidation and findings consistent with COPD. EKG was normal sinus rhythm without ischemic changes. The patient was started on azithromycin, ceftriaxone, breathing treatments, IV steroids. The patient continued to develop respiratory distress on the floor and would not tolerate BiPAP. She does have a long history of schizophrenia and anxiety. She was therefore transitioned to the intensive care unit for closer respiratory m anagement. Past Med Surg Social Fam HX - Past Medical History Attestation: Yes The following information was validated with the patient. Medical history: COPD, diabetes, kidney stones, TIA Additional medical history: Neuropathy,unknown if has other history Psychiatric history: anxiety, bipolar, PTSD, schizophrenia, previous psychiatric hospitalization - Past Surgical History Surgical History: appendectomy Additional surgical history: unknown surgical history - Social History Smoking Status: Current every day smoker Packs per day: 12 cigaretts a day Smokeless Tobacco Status: No Alcohol use: none Drug use: none - Family History Mother Hx Family Respiratory Disorders: Yes Father Hx Family Respiratory Disorders: Yes Medications and Allergies Escitalopram Oxalate 5 mg PO DAILY 01/16/19 [History] Gabapentin [Neurontin] 100 mg PO TID 01/16/19 [History] Ipratropium/Albuterol Neb [Duoneb] 3 ml IH Q4HR 01/16/19 [History] Melatonin [Melatin] 6 mg PO HS 01/16/19 [History] Trazodone HCl 50 mg PO QPM PRN 01/16/19 [History] predniSONE [PredniSONE] 10 mg PO DAILY 01/16/19 [History] risperiDONE [Risperidone] 1 mg PO 1200 01/16/19 [History] Insulin Glargine [Lantus] 10 unit SQ QPM 01/23/19 [History] Insulin LISPRO [HumaLOG] 2 - 10 units SQ TIDWM 01/23/19 [History] Metformin HCl [Fortamet] 1,000 mg PO BID 01/23/19 [History] Divalproex Sodium [Depakote] 125 mg PO BID 01/24/19 [History] Fluticasone/Vilanterol [Breo Ellipta 100-25 Mcg INH] 1 puff IH DAILY 01/24/19 [History] risperiDONE [Risperdal] 0.5 mg PO 0800 01/24/19 [History] Allergy/AdvReac Type Severity Reaction Status Date / Time No Known Allergies Allergy Verified 01/23/19 15:56 All Systems: The remainder of the systems were reviewed and are negative - Constitutional Constitutional: as per HPI, no chills, no fever(s) - EENT Nose, mouth and throat: no headache(s), no nasal congestion - Cardiovascular Cardiovascular: dyspnea, no chest pain, no edema - Respiratory Respiratory: cough (chronic), dyspnea, dyspnea on exertion - Gastrointestinal Gastrointestinal: no abdominal pain, no melena - Genitourinary Genitourinary: no dysuria, no hematuria - Musculoskeletal Musculoskeletal: no weakness - Neurological Neurological: no confusion, no dizziness Physical Examination Vital Signs: Vital Signs, Last 4 Hours Temp Pulse Resp BP Pulse Ox 01/24/19 09:20 28 91 01/24/19 07:52 99.0 F 76 16 175/77 95 General appearance: agitated Eyes: nonicteric ENT: oropharynx dry Effort: mildly labored Auscultation: bilateral: wheezes (diffusely) Cardiovascular: regular rate and rhythm Gastrointestinal: normoactive bowel sounds, non-tender, non-distended Integumentary: normal Extremities: no cyanosis, no edema Musculoskeletal: no deformities normal mental status, non-focal exam, motor strength normal and symmetric anxious Results - Laboratory Findings CBC and BMP: 01/24/19 03:55 01/24/19 03:55 Abnormal lab findings: Abnormal lab results WBC 14.2 K/mcL (4.3-11.1) H 01/24/19 03:55 RBC 3.47 M/mcL (3.82-4.97) L 01/24/19 03:55 Hgb 9.8 g/dL (11.5-15.4) L 01/24/19 03:55 Hct 33.3 % (35.3-44.9) L 01/24/19 03:55 MCHC 29.4 g/dL (31.6-35.5) L 01/24/19 03:55 RDW 15.0 % (11.5-14.5) H 01/24/19 03:55 Neutrophils # 10.2 K/mcL (1.6-8.9) H 01/23/19 16:45 Chloride 96 mEq/L (98-107) L 01/23/19 16:45 Carbon Dioxide 39 mEq/L (23-29) H 01/24/19 03:55 BUN/Creatinine Ratio 27 (6-26) H 01/24/19 03:55 Glucose 179 mg/dL (70-105) H 01/24/19 03:55 POC Glucose 166 mg/dL (70-99) H 01/24/19 05:05 Calculated Osmolality 304 (280-300) H 01/24/19 03:55 Lactic Acid 2.5 mmol/L (0.5-2.2) H 01/23/19 20:43 Urine Protein 30 mg/dL (Neg-Trace) H 01/23/19 19:24 Urine Ketones Trace mg/dL (Negative) H 01/23/19 19:24 Urine Blood Small (Negative) H 01/23/19 19:24 Urine Microscopic RBC 15-30 per hpf (0-3) H 01/23/19 19:24 Urine Microscopic WBC 5-15 per hpf (0-3) H 01/23/19 19:24 Ur Squamous Epith Cells Many per lpf (None-Few) H 01/23/19 19:24 Ur Culture Indicated? YES (NO) A 01/23/19 19:24 - Microbiology Findings Microbiology Findings: Microbiology, Last 48 Hours 01/23/19 19:24 Urine Culture - Preliminary Urine,Clean Catch Culture is incubating. 01/23/19 16:45 Blood Culture - Preliminary Peripheral Venipuncture Culture is incubating and being continuously monitored for growth. Final report to follow. 01/23/19 16:45 Blood Culture - Preliminary Peripheral Venipuncture Culture is incubating and being continuously monitored for growth. Final report to follow. - Clinical Findings Intake & Output: Intake & Output 01/23/19 01/24/19 01/24/19 23:59 07:59 15:59 Intake Total 1010 / 1010 0 / 0 Output Total 0 / 0 700 / 700 Balance 1010 / 1010 -700 / -700 Weight 55.7 kg 55.7 kg Consult Discharge Plan - Plan Referrals: NONE,PCP [Primary Care Provider] - <Karlos Juan - Last Filed: 01/24/19 22:37> Date of Encounter: 01/24/19 All Systems: The remainder of the systems were reviewed and are negative Physical Examination Vital Signs: Vital Signs, Last 4 Hours Temp Pulse Resp BP Pulse Ox 01/24/19 21:00 75 22 119/54 98 01/24/19 20:20 97.7 F 01/24/19 20:00 78 22 97 Results - Laboratory Findings CBC and BMP: 01/24/19 03:55 01/24/19 03:55 ABG ABG pH 7.25 pH Units (7.32-7.45) L 01/24/19 17:43 ABG pCO2 92 mmHg (35-45) H* 01/24/19 17:43 ABG pO2 109 mmHg (85-104) H 01/24/19 17:43 ABG O2 Saturation 97 % (95-98) 01/24/19 17:43 Abnormal lab findings: Abnormal lab results WBC 14.2 K/mcL (4.3-11.1) H 01/24/19 03:55 RBC 3.47 M/mcL (3.82-4.97) L 01/24/19 03:55 Hgb 9.8 g/dL (11.5-15.4) L 01/24/19 03:55 Hct 33.3 % (35.3-44.9) L 01/24/19 03:55 MCHC 29.4 g/dL (31.6-35.5) L 01/24/19 03:55 RDW 15.0 % (11.5-14.5) H 01/24/19 03:55 Neutrophils # 10.2 K/mcL (1.6-8.9) H 01/23/19 16:45 ABG pH 7.25 pH Units (7.32-7.45) L 01/24/19 17:43 ABG pCO2 92 mmHg (35-45) H* 01/24/19 17:43 ABG pO2 109 mmHg (85-104) H 01/24/19 17:43 ABG HCO3 40 mEq/L (21-27) H 01/24/19 17:43 ABG Total CO2 43 mEq/L (20-26) H 01/24/19 17:43 ABG Base Excess 10 mEq/L (-2 to 3) H 01/24/19 17:43 Chloride 96 mEq/L (98-107) L 01/23/19 16:45 Carbon Dioxide 39 mEq/L (23-29) H 01/24/19 03:55 BUN/Creatinine Ratio 27 (6-26) H 01/24/19 03:55 Glucose 179 mg/dL (70-105) H 01/24/19 03:55 POC Glucose 164 mg/dL (70-99) H 01/24/19 07:54 Calculated Osmolality 304 (280-300) H 01/24/19 03:55 Lactic Acid 2.5 mmol/L (0.5-2.2) H 01/23/19 20:43 Urine Protein 30 mg/dL (Neg-Trace) H 01/23/19 19:24 Urine Ketones Trace mg/dL (Negative) H 01/23/19 19:24 Urine Blood Small (Negative) H 01/23/19 19:24 Urine Microscopic RBC 15-30 per hpf (0-3) H 01/23/19 19:24 Urine Microscopic WBC 5-15 per hpf (0-3) H 01/23/19 19:24 Ur Squamous Epith Cells Many per lpf (None-Few) H 01/23/19 19:24 Ur Culture Indicated? YES (NO) A 01/23/19 19:24 - Microbiology Findings Microbiology Findings: Microbiology, Last 48 Hours 01/23/19 19:24 Urine Culture - Preliminary Urine,Clean Catch Culture is incubating. 01/23/19 16:45 Blood Culture - Preliminary Peripheral Venipuncture Culture is incubating and being continuously monitored for growth. Final report to follow. 01/23/19 16:45 Blood Culture - Preliminary Peripheral Venipuncture Culture is incubating and being continuously monitored for growth. Final report to follow. - Clinical Findings Intake & Output: Intake & Output 01/24/19 01/24/19 01/24/19 07:59 15:59 23:59 Intake Total 0 / 0 0 / 0 Output Total 700 / 950 250 / 950 Balance -700 / -950 0 / -950 -250 / -950 Weight 55.7 kg 60.5 kg - Attending Attestation I saw and evaluated this patient and my medical decision-making was reviewed with the Resident Physician. I agree with the documented findings, disposition and treatment plan as described except to the extent set forth below. We independently had [id number] contact with the patient I spent 35 minutes of Critical Care time with this patient. It involved decision making of high complexity to assess, manipulate, and support vital organ system failure and/or to prevent further life threatening deterioration of the patient's condition. The time involved in the performance of separately reporta ble procedures was not counted toward critical care time. Patient seen and examined at bedside Labs, radiology, chart personally reviewed. Management was reviewed during multidisciplinary critical care rounds. 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 Toxic/metabolic encephalopathy also playing a role. Pulm: Patient has severe structural lung disease emphysematous disease, presently with acute on chronic hypoxic hypercarbic respiratory failure complicated by right lower lobe pneumonia and begun structural lung disease will give broad-spectrum antibiotic coverage. Will try noninvasive ventilation as as is a class I indication in the setting of acute on chronic respiratory failure in the background of COPD exacerbation the patient fails then she needs to be intubated and mechanical ventilated Cards: Patient is hemodynamically stable patient blood pressure was high and high sympathetic activity and was sent diastolic dysfunction will start her on Precedex that will help in blood pressure control too. FEN-GI: Nothing by mouth for now Renal: Labs and output were reviewed patient has, since her metabolic alkalosis acid-base balance is stable if acid-base balance is worsening she will eventually need mechanical ventilation ID: To cover for right lower lobe pneumonia to continue Zosyn because of severe structural lung disease patient has high risk for pseudomonas Heme/Onc: Labs reviewed Endo: Glucose Monitored Integ/MSK: Skin Care per routine ICU Nursing Protocol to prevent ulcers. Lines: All lines examined without evidence of infection : Dispo: Critically ill CODE:Full Code
[2019-01-24] MEDS: MethylPREDNISolone 40 MG/ML VIAL IVP SCH ×2 (11:10→19:13)
[2019-01-24] MEDS: Budesonide Neb 0.5 MG/2 ML IH SCH ×2 (11:20→22:41)
[2019-01-24 13:48] LABS: ABG Base Excess 12 mEq/L (-2 to 3); ABG HCO3 42 mEq/L (21-27); ABG Oxygen Saturation 96 % (95-98); ABG PCO2 93 mmHg (35-45); ABG PH 7.26 pH Units (7.32-7.45); ABG PO2 102 mmHg (85-104); ABG TCO2 45 mEq/L (20-26); Blood Gas Modality AVAPS; Blood Gas PEEP 6 cm H2O; Blood Gas VT 350 cc
[2019-01-24] MEDS ORDERED: *HR* LORazepam 2 MG/ML VIAL IVP PRN (16:45)
[2019-01-24 17:52] LABS: ABG Base Excess 10 mEq/L (-2 to 3); ABG HCO3 40 mEq/L (21-27); ABG Oxygen Saturation 97 % (95-98); ABG PCO2 92 mmHg (35-45); ABG PH 7.25 pH Units (7.32-7.45); ABG PO2 109 mmHg (85-104); ABG TCO2 43 mEq/L (20-26); Blood Gas Modality AVAPS; Blood Gas PEEP 6 cm H2O; Blood Gas VT 400 cc
[2019-01-24] MEDS: Azithromycin 500 MG in D5% in Water 250 ML IVPB SCH (19:13)
[2019-01-24] MEDS: Divalproex Sodium 125 MG CAPSULE PO SCH (20:36)
[2019-01-24] MEDS: risperiDONE 1 MG TABLET PO SCH (20:37)
[2019-01-24] MEDS ORDERED: Dexmedetomidine HCl 400 MCG/100 ML MLS IVC SCH (21:45)
[2019-01-24 23:00] LABS: ABG Base Excess 15 mEq/L (-2 to 3); ABG HCO3 44 mEq/L (21-27); ABG Oxygen Saturation 97 % (95-98); ABG PCO2 91 mmHg (35-45); ABG PO2 114 mmHg (85-104); ABG TCO2 47 mEq/L (20-26); Blood Gas Modality AVAPS; Blood Gas PEEP 13 cm H2O; Blood Gas Pressure Support 6 cm H2O; Blood Gas VT 450 cc
[2019-01-25] MEDS: MethylPREDNISolone 40 MG/ML VIAL IVP SCH ×4 (00:35→18:08)
[2019-01-25] MEDS: Piperacillin/Tazobactam 3.375 GM in 0.9 % Sodium Chloride Mini Bag 100 ML IVPB SCH ×3 (00:35→15:51)
--- NOTE | 2019-01-25 00:36 | Event Note ---
Date of Encounter: 01/25/19 Time of Encounter: 22:53 Notified by respiratory therapy of most recent ABG results. Noted that these results have very little change from previous despite bipap therapy. Patient evaluated and is resting comfortably. Patient is adamant about not wanting intubation as she was previously intubated earlier this year. We will continue to monitor and further management is pending clinical status. We will repeat ABG in the AM.
[2019-01-25] MEDS: Ipratropium/Albuterol Neb 3 ML IH SCH ×4 (03:45→23:31)
[2019-01-25 04:49] LABS: ABG Base Excess 14 mEq/L (-2 to 3); ABG HCO3 43 mEq/L (21-27); ABG Oxygen Saturation 97 % (95-98); ABG PCO2 85 mmHg (35-45); ABG PH 7.31 pH Units (7.32-7.45); ABG PO2 105 mmHg (85-104); ABG TCO2 46 mEq/L (20-26); Blood Gas PEEP 17 cm H2O; Blood Gas Pressure Support 6 cm H2O
[2019-01-25] MEDS: *HR* Heparin 5,000 UNIT/ML VIAL SQ SCH ×2 (05:53→18:08)
[2019-01-25 06:44] LABS: Hematocrit 32.1 % (35.3-44.9); Hemoglobin 9.4 g/dL (11.5-15.4); Mean Corpuscular HGB Conc 29.3 g/dL (31.6-35.5); Mean Corpuscular Hemoglobin 28.1 pg (28.0-33.3); Mean Corpuscular Volume 96.1 fL (83.0-100.0); Mean Platelet Volume 9.9 fL (9.4-12.4); Platelet Count 240 K/mcL (140-400); Red Blood Count 3.34 M/mcL (3.82-4.97); Red Cell Distribution Width 14.6 % (11.5-14.5); White Blood Count 8.7 K/mcL (4.3-11.1)
[2019-01-25 07:12] LABS: Alanine Aminotransferase 21 Units/L (7-52); Albumin 3.5 g/dL (3.5-5.7); Albumin/Globulin Ratio 1.8 (1.1-2.2); Alkaline Phosphatase 52 Units/L (34-104); Aspartate Amino Transferase 16 Units/L (13-39); BUN/Creatinine Ratio 36 (6-26); Bilirubin,Total 0.2 mg/dL (0.3-1.0); Blood Urea Nitrogen 24 mg/dL (8-23); Calcium 8.9 mg/dL (8.6-10.3); Carbon Dioxide 41 mEq/L (23-29); Chloride 97 mEq/L (98-107); Glucose 165 mg/dL (70-105); Magnesium 1.8 mg/dL (1.6-2.6); Osmolality,Calculated 302 (280-300); Phosphorous 3.4 mg/dL (2.7-4.5); Potassium 4.3 mEq/L (3.5-5.1); Sodium 142 mEq/L (136-145); Total Protein 5.5 g/dL (6.4-8.9); eGFR For African Americans > 60 (> 60); eGFR For Non-African Americans > 60 (> 60)
[2019-01-25] MEDS: Insulin LISPRO 300 UNITS/3 ML VIAL SQ SCH ×4 (07:36→22:26)
[2019-01-25] MEDS: risperiDONE 0.25 MG TABLET PO SCH (08:33)
[2019-01-25] MEDS: Divalproex Sodium 125 MG CAPSULE PO SCH ×2 (08:33→20:44)
[2019-01-25] MEDS: Gabapentin 100 MG CAPSULE PO SCH ×3 (08:33→20:44)
[2019-01-25] MEDS: *HR* LORazepam 2 MG/ML VIAL IVP PRN ×3 (10:01→22:31)
[2019-01-25] MEDS: Budesonide Neb 0.5 MG/2 ML IH SCH ×2 (10:22→20:21)
--- NOTE | 2019-01-25 11:08 | Pulmonology Progress Note ---
<Clara Cai M - Last Filed: 01/25/19 16:51> Date of Encounter: 01/25/19 Time of Encounter: 11:08 Assessment and Plan (1) Acute exacerbation of chronic obstructive airways disease Current Visit: Yes Status: Acute * Patient has had significant improvement in her work of breathing with BiPAP, scheduled nebs, steroids and anxiolysis * Overnight the patient was started on Precedex for anxiety, will continue to reassess and intermittent likely give Ativan if necessary * CT chest shows significant emphysema, bibasilar infiltrate concerning for pneumonia therefore was initiated on Zosyn yesterday * She does have evidence of a metallic foreign body which appears to be inaccessible to bronchoscopy, unsure of the origin of this foreign body * patient continues to decline the desire to be intubated but does continue with desires to have "all other things done "and given her agitation of, upon further discussion regarding CPR will keep her full code for the time being * overnight has had mild improvement in her acidosis and hypercapnia with BiPAP, will continue to assess and hopefully avoid intubation (2) Community acquired pneumonia Current Visit: Yes Status: Acute * CT chest yesterday showed evidence of bibasilar mouth mild to moderate consolidations * Given clinical context place the patient on broad-spectrum Zosyn and continued azithromycin * Blood cultures pending Qualifiers: Laterality: unspecified laterality Qualified Code(s): J18.9 - Pneumonia, unspecified organism (3) Nicotine use disorder Current Visit: Yes Status: Acute * Nicotine patch (4) DVT prophylaxis Current Visit: Yes Status: Acute * Heparin subcutaneous Subjective Interval history: Overnight the patient was able to tolerate BiPAP well. She did have an episode of significant anxiety and was therefore given Precedex. She continues to adamantly decline the desire to be intubated. Objective PUL Vital signs: Last Vital Signs Temp 97.4 F L 01/25/19 07:04 Pulse 66 01/25/19 06:00 Resp 16 01/25/19 10:23 BP 135/62 01/25/19 10:23 Pulse Ox 99 01/25/19 10:23 General appearance: no acute distress, asleep Eyes: nonicteric ENT: oropharynx dry Effort: normal Auscultation: bilateral: diminished breath sounds Cardiovascular: regular rate and rhythm Gastrointestinal: normoactive bowel sounds, non-tender, non-distended Integumentary: normal Extremities: no cyanosis, no edema Musculoskeletal: no deformities non-focal exam, pupils equal and round Results - Laboratory Findings CBC and BMP: 01/25/19 06:10 01/25/19 06:10 ABG ABG pH 7.31 pH Units (7.32-7.45) L 01/25/19 04:43 ABG pCO2 85 mmHg (35-45) H* 01/25/19 04:43 ABG pO2 105 mmHg (85-104) H 01/25/19 04:43 ABG O2 Saturation 97 % (95-98) 01/25/19 04:43 Abnormal lab findings: Abnormal lab results WBC 14.2 K/mcL (4.3-11.1) H 01/24/19 03:55 RBC 3.34 M/mcL (3.82-4.97) L 01/25/19 06:10 Hgb 9.4 g/dL (11.5-15.4) L 01/25/19 06:10 Hct 32.1 % (35.3-44.9) L 01/25/19 06:10 MCHC 29.3 g/dL (31.6-35.5) L 01/25/19 06:10 RDW 14.6 % (11.5-14.5) H 01/25/19 06:10 Neutrophils # 10.2 K/mcL (1.6-8.9) H 01/23/19 16:45 ABG pH 7.31 pH Units (7.32-7.45) L 01/25/19 04:43 ABG pCO2 85 mmHg (35-45) H* 01/25/19 04:43 ABG pO2 105 mmHg (85-104) H 01/25/19 04:43 ABG HCO3 43 mEq/L (21-27) H 01/25/19 04:43 ABG Total CO2 46 mEq/L (20-26) H 01/25/19 04:43 ABG Base Excess 14 mEq/L (-2 to 3) H 01/25/19 04:43 Chloride 97 mEq/L (98-107) L 01/25/19 06:10 Carbon Dioxide 41 mEq/L (23-29) H* 01/25/19 06:10 BUN 24 mg/dL (8-23) H 01/25/19 06:10 BUN/Creatinine Ratio 36 (6-26) H 01/25/19 06:10 Glucose 165 mg/dL (70-105) H 01/25/19 06:10 POC Glucose 133 mg/dL (70-99) H 01/24/19 19:24 Calculated Osmolality 302 (280-300) H 01/25/19 06:10 Lactic Acid 2.5 mmol/L (0.5-2.2) H 01/23/19 20:43 Total Bilirubin 0.2 mg/dL (0.3-1.0) L 01/25/19 06:10 Serum Total Protein 5.5 g/dL (6.4-8.9) L 01/25/19 06:10 Globulin 2.0 g/dL (2.4-3.5) L 01/25/19 06:10 Urine Protein 30 mg/dL (Neg-Trace) H 01/23/19 19:24 Urine Ketones Trace mg/dL (Negative) H 01/23/19 19:24 Urine Blood Small (Negative) H 01/23/19 19:24 Urine Microscopic RBC 15-30 per hpf (0-3) H 01/23/19 19:24 Urine Microscopic WBC 5-15 per hpf (0-3) H 01/23/19 19:24 Ur Squamous Epith Cells Many per lpf (None-Few) H 01/23/19 19:24 Ur Culture Indicated? YES (NO) A 01/23/19 19:24 - Microbiology Findings Microbiology Findings: Microbiology, Last 48 Hours 01/23/19 19:24 Urine Culture - Final Urine,Clean Catch No significant growth. 01/23/19 16:45 Blood Culture - Preliminary Peripheral Venipuncture Culture is incubating and being continuously monitored for growth. Final report to follow. 01/23/19 16:45 Blood Culture - Preliminary Peripheral Venipuncture Culture is incubating and being continuously monitored for growth. Final report to follow. - Clinical Findings Intake & Output: Intake & Output 01/24/19 01/25/19 01/25/19 23:59 07:59 15:59 Intake Total 250 / 250 1145.2 / 1215.5 70.3 / 1215.5 Output Total 250 / 950 Balance 0 / -700 1145.2 / 1215.5 70.3 / 1215.5 Weight 59.2 kg Consult Discharge Plan - Plan Referrals: NONE,PCP [Primary Care Provider] - <Karlos Juan - Last Filed: 01/25/19 17:14> Date of Encounter: 01/25/19 Objective PUL Vital signs: Last Vital Signs Temp 97.4 F L 01/25/19 14:31 Pulse 65 01/25/19 14:31 Resp 23 01/25/19 15:58 BP 114/53 01/25/19 14:31 Pulse Ox 98 01/25/19 15:58 Results - Laboratory Findings CBC and BMP: 01/25/19 06:10 01/25/19 06:10 ABG ABG pH 7.31 pH Units (7.32-7.45) L 01/25/19 16:15 ABG pCO2 86 mmHg (35-45) H* 01/25/19 16:15 ABG pO2 99 mmHg (85-104) 01/25/19 16:15 ABG O2 Saturation 96 % (95-98) 01/25/19 16:15 Abnormal lab findings: Abnormal lab results WBC 14.2 K/mcL (4.3-11.1) H 01/24/19 03:55 RBC 3.34 M/mcL (3.82-4.97) L 01/25/19 06:10 Hgb 9.4 g/dL (11.5-15.4) L 01/25/19 06:10 Hct 32.1 % (35.3-44.9) L 01/25/19 06:10 MCHC 29.3 g/dL (31.6-35.5) L 01/25/19 06:10 RDW 14.6 % (11.5-14.5) H 01/25/19 06:10 Neutrophils # 10.2 K/mcL (1.6-8.9) H 01/23/19 16:45 ABG pH 7.31 pH Units (7.32-7.45) L 01/25/19 16:15 ABG pCO2 86 mmHg (35-45) H* 01/25/19 16:15 ABG pO2 105 mmHg (85-104) H 01/25/19 04:43 ABG HCO3 44 mEq/L (21-27) H 01/25/19 16:15 ABG Total CO2 46 mEq/L (20-26) H 01/25/19 16:15 ABG Base Excess 13 mEq/L (-2 to 3) H 01/25/19 16:15 Chloride 97 mEq/L (98-107) L 01/25/19 06:10 Carbon Dioxide 41 mEq/L (23-29) H* 01/25/19 06:10 BUN 24 mg/dL (8-23) H 01/25/19 06:10 BUN/Creatinine Ratio 36 (6-26) H 01/25/19 06:10 Glucose 165 mg/dL (70-105) H 01/25/19 06:10 POC Glucose 133 mg/dL (70-99) H 01/24/19 19:24 Calculated Osmolality 302 (280-300) H 01/25/19 06:10 Lactic Acid 2.5 mmol/L (0.5-2.2) H 01/23/19 20:43 Total Bilirubin 0.2 mg/dL (0.3-1.0) L 01/25/19 06:10 Serum Total Protein 5.5 g/dL (6.4-8.9) L 01/25/19 06:10 Globulin 2.0 g/dL (2.4-3.5) L 01/25/19 06:10 Urine Protein 30 mg/dL (Neg-Trace) H 01/23/19 19:24 Urine Ketones Trace mg/dL (Negative) H 01/23/19 19:24 Urine Blood Small (Negative) H 01/23/19 19:24 Urine Microscopic RBC 15-30 per hpf (0-3) H 01/23/19 19:24 Urine Microscopic WBC 5-15 per hpf (0-3) H 01/23/19 19:24 Ur Squamous Epith Cells Many per lpf (None-Few) H 01/23/19 19:24 Ur Culture Indicated? YES (NO) A 01/23/19 19:24 - Microbiology Findings Microbiology Findings: Microbiology, Last 48 Hours 01/23/19 19:24 Urine Culture - Final Urine,Clean Catch No significant growth. 01/23/19 16:45 Blood Culture - Preliminary Peripheral Venipuncture Culture is incubating and being continuously monitored for growth. Final report to follow. 01/23/19 16:45 Blood Culture - Preliminary Peripheral Venipuncture Culture is incubating and being continuously monitored for growth. Final report to follow. - Clinical Findings Intake & Output: Intake & Output 01/25/19 01/25/19 01/25/19 07:59 15:59 23:59 Intake Total 1145.2 / 1319.6 174.4 / 1319.6 Output Total 250 / 250 Balance 1145.2 / 1069.6 -75.6 / 1069.6 - Attending Attestation I saw and evaluated this patient and my medical decision-making was reviewed with the Resident Physician. I agree with the documented findings, disposition and treatment plan as described except to the extent set forth below. We independently had [id number] contact with the patient I spent 33 minutes of Critical Care time with this patient. It involved decision making of high complexity to assess, manipulate, and support vital organ system failure and/or to prevent further life threatening deterioration of the patient's condition. The time involved in the performance of separately reportable procedures was not counted toward critical care time. Patient seen and examined at bedside Labs, radiology, chart personally reviewed. Management was reviewed during multidisciplinary critical care rounds. 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 Toxic/metabolic encephalopathy also playing a role. 01/22 patient is more alert than before on and off for the following commands supported by toxic/metabolic encephalopathy to do at least the every 4 neuro checks Pulm: Patient has severe structural lung disease emphysematous disease, presently with acute on chronic hypoxic hypercarbic respiratory failure com plicated by right lower lobe pneumonia and begun structural lung disease will give broad-spectrum antibiotic coverage. Will try noninvasive ventilation as as is a class I indication in the setting of acute on chronic respiratory failure in the background of COPD exacerbation the patient fails then she needs to be intubated and mechanical ventilated 01/22 patient gas exchange is slowly getting better with noninvasive ventilation patient is on broad-spectrum antibiotics getting treated for COPD exacerbation with bronchodilators and steroids as patient is slowly improving on noninvasive ventilation will hold off any mechanical ventilation now unless her condition deteriorates. Cards: Patient is hemodynamically stable patient blood pressure was high and hig h sympathetic activity and was sent diastolic dysfunction will start her on Precedex that will help in blood pressure control too. 01/25 patient hemodynamics decently tolerates Precedex infusion. FEN-GI: Nothing by mouth for now Renal: Labs and output were reviewed ID: To cover for right lower lobe pneumonia to continue Zosyn because of severe structural lung disease patient has high risk for pseudomonas. Will de-escalate antibiotics according to clinical response. Heme/Onc: Labs reviewed Endo: Glucose Monitored Integ/MSK: Skin Care per routine ICU Nursing Protocol to prevent ulcers. Lines: All lines examined without evidence of infection : Dispo: Critically ill high risk for intubation and mechanical mechanical ventilation CODE:Full Code
[2019-01-25 16:25] LABS: ABG Base Excess 13 mEq/L (-2 to 3); ABG HCO3 44 mEq/L (21-27); ABG Oxygen Saturation 96 % (95-98); ABG PCO2 86 mmHg (35-45); ABG PH 7.31 pH Units (7.32-7.45); ABG PO2 99 mmHg (85-104); ABG TCO2 46 mEq/L (20-26)
[2019-01-25] MEDS: Nicotine 21 MG PATCH.TD24 TD SCH (17:12)
[2019-01-25] MEDS: Azithromycin 500 MG in D5% in Water 250 ML IVPB SCH (18:08)
--- NOTE | 2019-01-25 18:26 | Electrocardiograph Report ---
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
[2019-01-25] MEDS: Albuterol 2.5 MG/3 ML NEBULIZER IH PRN (20:21)
[2019-01-25] MEDS: risperiDONE 1 MG TABLET PO SCH (20:44)
[2019-01-25] MEDS: Melatonin 3 MG TABLET PO SCH (20:44)
[2019-01-26] MEDS: Piperacillin/Tazobactam 3.375 GM in 0.9 % Sodium Chloride Mini Bag 100 ML IVPB SCH ×3 (00:19→18:49)
[2019-01-26] MEDS: MethylPREDNISolone 40 MG/ML VIAL IVP SCH ×5 (00:20→23:10)
[2019-01-26 03:52] LABS: Hematocrit 32.1 % (35.3-44.9); Hemoglobin 9.3 g/dL (11.5-15.4); Mean Corpuscular Hemoglobin 28.4 pg (28.0-33.3); Mean Corpuscular Volume 97.9 fL (83.0-100.0); Mean Platelet Volume 9.9 fL (9.4-12.4); Platelet Count 242 K/mcL (140-400); Red Blood Count 3.28 M/mcL (3.82-4.97); Red Cell Distribution Width 14.6 % (11.5-14.5); White Blood Count 7.4 K/mcL (4.3-11.1)
[2019-01-26] MEDS: Ipratropium/Albuterol Neb 3 ML IH SCH ×4 (04:00→23:18)
[2019-01-26 04:16] LABS: Alanine Aminotransferase 20 Units/L (7-52); Albumin 3.4 g/dL (3.5-5.7); Albumin/Globulin Ratio 1.7 (1.1-2.2); Alkaline Phosphatase 47 Units/L (34-104); Aspartate Amino Transferase 12 Units/L (13-39); BUN/Creatinine Ratio 42 (6-26); Bilirubin,Total 0.2 mg/dL (0.3-1.0); Blood Urea Nitrogen 30 mg/dL (8-23); Carbon Dioxide 44 mEq/L (23-29); Chloride 97 mEq/L (98-107); Glucose 187 mg/dL (70-105); Magnesium 2.1 mg/dL (1.6-2.6); Osmolality,Calculated 311 (280-300); Phosphorous 3.6 mg/dL (2.7-4.5); Potassium 4.7 mEq/L (3.5-5.1); Sodium 145 mEq/L (136-145); Total Protein 5.4 g/dL (6.4-8.9); eGFR For African Americans > 60 (> 60); eGFR For Non-African Americans > 60 (> 60)
[2019-01-26] MEDS: *HR* Heparin 5,000 UNIT/ML VIAL SQ SCH ×2 (05:06→18:51)
[2019-01-26] MEDS: Insulin LISPRO 300 UNITS/3 ML VIAL SQ SCH ×4 (08:14→20:43)
[2019-01-26] MEDS: Budesonide Neb 0.5 MG/2 ML IH SCH ×2 (10:40→23:18)
[2019-01-26] MEDS: risperiDONE 0.25 MG TABLET PO SCH (11:13)
[2019-01-26] MEDS: Divalproex Sodium 125 MG CAPSULE PO SCH ×2 (11:13→20:39)
[2019-01-26] MEDS: Gabapentin 100 MG CAPSULE PO SCH ×3 (11:14→20:39)
[2019-01-26] MEDS: Acetaminophen 325 MG TABLET PO PRN (11:21)
[2019-01-26] MEDS: *HR* LORazepam 2 MG/ML VIAL IVP PRN (11:27)
[2019-01-26] MEDS: Azithromycin 500 MG in D5% in Water 250 ML IVPB SCH (18:51)
[2019-01-26] MEDS: Nicotine 21 MG PATCH.TD24 TD SCH (18:53)
[2019-01-26] MEDS: Melatonin 3 MG TABLET PO SCH (20:38)
[2019-01-26] MEDS: risperiDONE 1 MG TABLET PO SCH (20:39)
[2019-01-27] MEDS: Piperacillin/Tazobactam 3.375 GM in 0.9 % Sodium Chloride Mini Bag 100 ML IVPB SCH ×3 (00:02→15:46)
[2019-01-27] MEDS: Ipratropium/Albuterol Neb 3 ML IH SCH ×4 (04:12→22:57)
[2019-01-27] MEDS: *HR* Heparin 5,000 UNIT/ML VIAL SQ SCH ×2 (04:53→16:37)
[2019-01-27] MEDS: MethylPREDNISolone 40 MG/ML VIAL IVP SCH ×3 (04:54→16:37)
[2019-01-27 05:22] LABS: Hematocrit 32.3 % (35.3-44.9); Hemoglobin 9.5 g/dL (11.5-15.4); Mean Corpuscular HGB Conc 29.4 g/dL (31.6-35.5); Mean Corpuscular Hemoglobin 28.4 pg (28.0-33.3); Mean Corpuscular Volume 96.4 fL (83.0-100.0); Platelet Count 240 K/mcL (140-400); Red Blood Count 3.35 M/mcL (3.82-4.97); Red Cell Distribution Width 14.6 % (11.5-14.5); White Blood Count 6.6 K/mcL (4.3-11.1)
[2019-01-27] MEDS: Acetaminophen 325 MG TABLET PO PRN (05:31)
[2019-01-27 05:45] LABS: Alanine Aminotransferase 21 Units/L (7-52); Albumin 3.7 g/dL (3.5-5.7); Albumin/Globulin Ratio 2.3 (1.1-2.2); Alkaline Phosphatase 41 Units/L (34-104); Aspartate Amino Transferase 14 Units/L (13-39); BUN/Creatinine Ratio 36 (6-26); Bilirubin,Total 0.3 mg/dL (0.3-1.0); Blood Urea Nitrogen 24 mg/dL (8-23); Carbon Dioxide 43 mEq/L (23-29); Chloride 98 mEq/L (98-107); Globulin 1.6 g/dL (2.4-3.5); Glucose 200 mg/dL (70-105); Osmolality,Calculated 310 (280-300); Phosphorous 2.7 mg/dL (2.7-4.5); Potassium 4.2 mEq/L (3.5-5.1); Sodium 145 mEq/L (136-145); Total Protein 5.3 g/dL (6.4-8.9); eGFR For African Americans > 60 (> 60); eGFR For Non-African Americans > 60 (> 60)
[2019-01-27] MEDS: *HR* LORazepam 2 MG/ML VIAL IVP PRN ×2 (05:56→19:31)
[2019-01-27] MEDS: Divalproex Sodium 125 MG CAPSULE PO SCH ×2 (08:45→21:35)
[2019-01-27] MEDS: risperiDONE 0.25 MG TABLET PO SCH (08:45)
[2019-01-27] MEDS: Insulin LISPRO 300 UNITS/3 ML VIAL SQ SCH ×4 (08:46→21:38)
[2019-01-27] MEDS: Gabapentin 100 MG CAPSULE PO SCH ×3 (08:46→21:35)
[2019-01-27] MEDS: Budesonide Neb 0.5 MG/2 ML IH SCH ×2 (10:37→22:57)
--- NOTE | 2019-01-27 15:36 | Internal Med Progress Note ---
Hospitalist Progress Note - Encounter Date of Encounter: 01/27/19 Time of Encounter: 15:30 - Subjective Interval History: Evaluated patient earlier today. She was previously complaining that she was hungry and wanted to eat. She did receive diet and was able to eat some. Presently on BiPAP when I evaluated her. She still seemed to be having shortnes s of breath. Denies any chest pain or palpitations. No fever reported overnight. - Exam Vitals: Temp Pulse Resp BP Pulse Ox 97.6 F 88 33 145/61 99 01/27/19 11:24 01/27/19 11:24 01/27/19 11:24 01/27/19 11:24 01/27/19 11:24 Exam: General: Patient is alert, moderate distress, oriented x 3 ENT: Mucous membranes moist, BiPAP mask in place Respiratory: Diminished breath sounds bilaterally. Cardiovascular: Regular rate and rhythm. s1 and s2 normal No clicks, rubs, gallops, or murmurs. No pedal edema Abdomen: Abdomen is soft, nontender. Bowel sounds are present Musculoskeletal: Spontaneously moving all extremities Skin: warm, dry, intact. Neuro: Alert oriented x 3 normal cranial nerves, no focal deficits - Assessment and Plan (1) Acute exacerbation of chronic obstructive airways disease Current Visit: Yes Status: Acute (2) Pneumonia Current Visit: Yes Status: Acute (3) Elevated lactic acid level Current Visit: Yes Status: Acute (4) Diabetes Current Visit: Yes Status: Acute (5) Hypertension Current Visit: Yes Status: Acute (6) Nicotine use disorder Current Visit: Yes Status: Acute (7) DVT prophylaxis Current Visit: Yes Status: Acute DVT Prophylaxis: Continue subcutaneous heparin - Summary of Assessment and Plan Summary of Assessment and Plan: Acute on chronic hypoxic and hypercapnic respiratory failure: Due to pneumonia and COPD exacerbation. Continue to wean FiO2 as tolerated. Continue BiPAP as needed. Pneumonia: Unspecified organism. Bilateral posterior basilar pneumonia. Continue azithromycin and Zosyn. Concern for aspiration pneumonia. Stop azithromycin after 5 days course. Acute COPD exacerbation: Continue O2 supplementation. Presently on Solu-Medrol every 6 hours. Will wean down oral prednisone. Continue bronchodilators and steroid inhalers. Diabetes mellitus type 2: Diabetic diet. Sliding scale insulin. We will also add long-acting insulin. Essential hypertension: Will place patient on amlodipine. DVT prophylaxis with subcutaneous heparin - Time Spent with Patient Total time spent is greater than 50% in coordination of care (as documented) at patient's floor/unit and/or counseling patient: Internal Medicine: Result - Labs CBC & Chem 7: 01/27/19 05:06 01/27/19 05:06 Labs: Short CBC 01/27/19 Range/Units 05:06 WBC 6.6 (4.3-11.1) K/mcL Hgb 9.5 L (11.5-15.4) g/dL Hct 32.3 L (35.3-44.9) % Plt Count 240 (140-400) K/mcL BMP 01/27/19 05:06 Sodium 145 Potassium 4.2 Chloride 98 Carbon Dioxide 43 H* BUN 24 H Creatinine 0.67 Glucose 200 H Calcium 9.0 Liver Function 01/27/19 Range/Units 05:06 Total Bilirubin 0.3 (0.3-1.0) mg/dL AST 14 (13-39) Units/L ALT 21 (7-52) Units/L Alkaline Phosphatase 41 (34-104) Units/L Albumin 3.7 (3.5-5.7) g/dL - ABG Interpretation ABG results: ABG ABG pH 7.31 pH Units (7.32-7.45) L 01/25/19 16:15 ABG pCO2 86 mmHg (35-45) H* 01/25/19 16:15 ABG pO2 99 mmHg (85-104) 01/25/19 16:15 ABG O2 Saturation 96 % (95-98) 01/25/19 16:15 Consult Discharge Plan - Plan Referrals: NONE,PCP [Primary Care Provider] - (2) Pneumonia Qualifiers: Pneumonia type: due to unspecified organism Laterality: bilateral Lung location: lower lobe of lung Qualified Code(s): J18.1 - Lobar pneumonia, unspecified organism (4) Diabetes Qualifiers: Diabetes mellitus type: type 2 Diabetes mellitus alf insulin use: with alf use Diabetes mellitus complication status: with hyperglycemia Qualified Code(s): E11.65 - Type 2 diabetes mellitus with hyperglycemia; 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
[2019-01-27] MEDS: Nicotine 21 MG PATCH.TD24 TD SCH (15:46)
[2019-01-27] MEDS ORDERED: Insulin DETEMIR 100 UNIT/ML X5UNITS SQ SCH (21:00)
[2019-01-27] MEDS: Azithromycin 500 MG in D5% in Water 250 ML IVPB SCH (21:34)
[2019-01-27] MEDS: Melatonin 3 MG TABLET PO SCH (21:35)
[2019-01-27] MEDS: risperiDONE 1 MG TABLET PO SCH (21:35)
[2019-01-28] MEDS: Piperacillin/Tazobactam 3.375 GM in 0.9 % Sodium Chloride Mini Bag 100 ML IVPB SCH ×4 (00:09→23:35)
[2019-01-28] MEDS: Ipratropium/Albuterol Neb 3 ML IH SCH ×5 (04:59→23:42)
[2019-01-28] MEDS: MethylPREDNISolone 40 MG/ML VIAL IVP SCH ×2 (05:14→16:47)
[2019-01-28] MEDS: *HR* Heparin 5,000 UNIT/ML VIAL SQ SCH ×2 (05:14→16:47)
[2019-01-28 05:30] LABS: Hemoglobin 9.5 g/dL (11.5-15.4); Mean Platelet Volume 10.4 fL (9.4-12.4)
[2019-01-28 05:32] LABS: Hematocrit 33.5 % (35.3-44.9); Mean Corpuscular HGB Conc 28.4 g/dL (31.6-35.5); Mean Corpuscular Hemoglobin 28.4 pg (28.0-33.3); Platelet Count 231 K/mcL (140-400); Red Blood Count 3.35 M/mcL (3.82-4.97); Red Cell Distribution Width 14.5 % (11.5-14.5); White Blood Count 7.5 K/mcL (4.3-11.1)
[2019-01-28 05:53] LABS: Alanine Aminotransferase 22 Units/L (7-52); Albumin 3.5 g/dL (3.5-5.7); Albumin/Globulin Ratio 2.1 (1.1-2.2); Alkaline Phosphatase 37 Units/L (34-104); Aspartate Amino Transferase 14 Units/L (13-39); BUN/Creatinine Ratio 34 (6-26); Bilirubin,Total 0.3 mg/dL (0.3-1.0); Blood Urea Nitrogen 23 mg/dL (8-23); Calcium 9.1 mg/dL (8.6-10.3); Carbon Dioxide > 45 mEq/L (23-29); Chloride 97 mEq/L (98-107); Globulin 1.7 g/dL (2.4-3.5); Glucose 150 mg/dL (70-105); Osmolality,Calculated 311 (280-300); Phosphorous 3.5 mg/dL (2.7-4.5); Sodium 147 mEq/L (136-145); Total Protein 5.2 g/dL (6.4-8.9); eGFR For African Americans > 60 (> 60); eGFR For Non-African Americans > 60 (> 60)
[2019-01-28] MEDS: Insulin LISPRO 300 UNITS/3 ML VIAL SQ SCH ×4 (08:04→20:28)
[2019-01-28] MEDS: amLODIPine 5 MG TABLET PO SCH (08:19)
[2019-01-28] MEDS: Divalproex Sodium 125 MG CAPSULE PO SCH ×2 (08:19→20:25)
[2019-01-28] MEDS: risperiDONE 0.25 MG TABLET PO SCH (08:19)
[2019-01-28] MEDS: Gabapentin 100 MG CAPSULE PO SCH ×3 (08:20→20:25)
[2019-01-28] MEDS: *HR* LORazepam 2 MG/ML VIAL IVP PRN ×2 (10:28→20:25)
[2019-01-28] MEDS: Budesonide Neb 0.5 MG/2 ML IH SCH ×2 (10:56→19:58)
--- NOTE | 2019-01-28 12:13 | Internal Med Progress Note ---
Hospitalist Progress Note - Encounter Date of Encounter: 01/28/19 Time of Encounter: 09:00 - Subjective Interval History: Continues to be tachypneic largely driven by her underlying anxiety. No chest pain or worsening cough. Decided to remain full code including intubation "if it is necessary to keep her alive". No fever overnight - Exam Vitals: Temp Pulse Resp BP Pulse Ox 97.6 F 94 32 157/77 95 01/28/19 07:46 01/28/19 11:29 01/28/19 11:29 01/28/19 11:29 01/28/19 11:29 Exam: General: Patient is alert, moderate distress, oriented x 3 Respiratory: Diminished breath sounds bilaterally. Cardiovascular: Regular rate and rhythm. s1 and s2 normal No clicks, rubs, gallops, or murmurs. No pedal edema Abdomen: Abdomen is soft, nontender. Bowel sounds are present Musculoskeletal: Spontaneously moving all extremities Skin: warm, dry, intact. Neuro: Alert oriented x 3, no focal deficits - Assessment and Plan (1) Acute and chronic respiratory failure with hypercapnia Current Visit: Yes Status: Acute Assessment and Plan: Also with hypoxia likely due to PNA complicated by COPD exacerbation. CT showed severe emphysema as well as bilateral mild to moderate consolidation at the posterior lung bases ?aspiration on D4 zosyn. Complete 5 days of macrolide tonight follow with speech therapy continue to taper steroids, scheduled bronchodilators Large component of her tachypnea appears to be due to her anxiety as her O2 sat seems to be > 90% on 2-3L when resting. Will continue PRN ativan and consider psychiatry consultation if her symptoms remain poorly controlled (2) Acute exacerbation of chronic obstructive airways disease Current Visit: Yes Status: Acute Assessment and Plan: abx, steroids, bronchodilators as above BiPAP PRN (3) Pneumonia Current Visit: Yes Status: Acute Assessment and Plan: as above for respiratory failure (4) Diabetes Current Visit: Yes Status: Chronic Assessment and Plan: increase levemir to 15U BID, continue low dose sliding scale (5) Hypertension Current Visit: Yes Status: Chronic Assessment and Plan: continue norvasc (6) Nicotine use disorder Current Visit: Yes Status: Acute Assessment and Plan: smoking cessation encouraged nicotine replacement therapy (7) Schizophrenia Current Visit: Yes Status: Chronic Assessment and Plan: it appears that there was a question on her capacity at baseline continue home meds will verify the guardianship status with SALMA later (8) DVT prophylaxis Current Visit: Yes Status: Acute Assessment and Plan: SQ heparin - Time Spent with Patient Total time spent is greater than 50% in coordination of care (as documented) at patient's floor/unit and/or counseling patient: 25 - 35 minutes Plan of Care Discussed with: nurse Internal Medicine: Result - Labs CBC & Chem 7: 01/28/19 03:43 01/28/19 03:43 Labs: Short CBC 01/28/19 Range/Units 03:43 WBC 7.5 (4.3-11.1) K/mcL Hgb 9.5 L (11.5-15.4) g/dL Hct 33.5 L (35.3-44.9) % Plt Count 231 (140-400) K/mcL BMP 01/28/19 03:43 Sodium 147 H Potassium 4.0 Chloride 97 L Carbon Dioxide > 45 H* BUN 23 Creatinine 0.67 Glucose 150 H Calcium 9.1 Liver Function 01/28/19 Range/Units 03:43 Total Bilirubin 0.3 (0.3-1.0) mg/dL AST 14 (13-39) Units/L ALT 22 (7-52) Units/L Alkaline Phosphatase 37 (34-104) Units/L Albumin 3.5 (3.5-5.7) g/dL - ABG Interpretation ABG results: ABG ABG pH 7.31 pH Units (7.32-7.45) L 01/25/19 16:15 ABG pCO2 86 mmHg (35-45) H* 01/25/19 16:15 ABG pO2 99 mmHg (85-104) 01/25/19 16:15 ABG O2 Saturation 96 % (95-98) 01/25/19 16:15 Consult Discharge Plan - Plan Referrals: NONE,PCP [Primary Care Provider] - (3) Pneumonia Qualifiers: Pneumonia type: due to unspecified organism Laterality: bilateral Lung location: lower lobe of lung Qualified Code(s): J18.1 - Lobar pneumonia, unspecified organism (4) Diabetes Qualifiers: Diabetes mellitus type: type 2 Diabetes mellitus mcc insulin use: with mcc use Diabetes mellitus complication status: with hyperglycemia Qualified Code(s): E11.65 - Type 2 diabetes mellitus with hyperglycemia; Z79.4 - care home (current) use of 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
[2019-01-28] MEDS ORDERED: traZODone 50 MG TABLET PO PRN (12:20)
[2019-01-28] MEDS: Nicotine 21 MG PATCH.TD24 TD SCH (15:30)
[2019-01-28 20:07] LABS: Adenovirus Not Detected (Not Detect); Bordetella Pertussis Not Detected (Not Detect); Chlamydophila pneumoniae Not Detected (Not Detect); Coronavirus 229E Not Detected (Not Detect); Coronavirus HKU1 Not Detected (Not Detect); Coronavirus NL63 Not Detected (Not Detect); Coronavirus OC43 Not Detected (Not Detect); Human Metapneumovirus Not Detected (Not Detect); Human Rhinovirus/Enterovirus DETECTED (Not Detect); Influenza A Subtype 2009 H1 Not Detected (Not Detect); Influenza A Untypeable Not Detected (Not Detect); Influenza B Not Detected (Not Detect); Mycoplasma pneumoniae Not Detected (Not Detect); Parainfluenza Virus 1 Not Detected (Not Detect); Parainfluenza Virus 2 Not Detected (Not Detect); Parainfluenza Virus 3 Not Detected (Not Detect); Parainfluenza Virus 4 Not Detected (Not Detect); Respiratory Syncytial Virus Not Detected (Not Detect)
[2019-01-28] MEDS: Melatonin 3 MG TABLET PO SCH (20:25)
[2019-01-28] MEDS: Azithromycin 500 MG in D5% in Water 250 ML IVPB SCH (20:25)
[2019-01-28] MEDS: risperiDONE 1 MG TABLET PO SCH (20:25)
[2019-01-28] MEDS ORDERED: Insulin DETEMIR 100 UNIT/ML X5UNITS SQ SCH (21:00)
[2019-01-29] MEDS: Ipratropium/Albuterol Neb 3 ML IH SCH ×6 (03:43→23:31)
[2019-01-29 03:50] LABS: Basophils % 0.1 %; Hemoglobin 9.6 g/dL (11.5-15.4)
[2019-01-29 03:51] LABS: Immature Granulocytes % 0.9 % (0-4); Lymphocytes # 1.5 K/mcL (0.6-4.6); Lymphocytes % 12.6 %; Mean Corpuscular HGB Conc 29.1 g/dL (31.6-35.5); Mean Corpuscular Hemoglobin 28.3 pg (28.0-33.3); Mean Corpuscular Volume 97.3 fL (83.0-100.0); Mean Platelet Volume 10.5 fL (9.4-12.4); Monocytes # 1.3 K/mcL (0.0-1.3); Monocytes % 10.9 %; Neutrophils # 8.7 K/mcL (1.6-8.9); Platelet Count 214 K/mcL (140-400); Red Blood Count 3.39 M/mcL (3.82-4.97); Red Cell Distribution Width 14.3 % (11.5-14.5); Segmented Neutrophils % 75.5 %; White Blood Count 11.5 K/mcL (4.3-11.1)
[2019-01-29 04:04] LABS: BUN/Creatinine Ratio 37 (6-26); Blood Urea Nitrogen 24 mg/dL (8-23); Calcium 9.4 mg/dL (8.6-10.3); Carbon Dioxide > 45 mEq/L (23-29); Chloride 93 mEq/L (98-107); Glucose 187 mg/dL (70-105); Osmolality,Calculated 311 (280-300); Potassium 4.2 mEq/L (3.5-5.1); Sodium 146 mEq/L (136-145); eGFR For African Americans > 60 (> 60); eGFR For Non-African Americans > 60 (> 60)
[2019-01-29 04:32] LABS: Large Platelets Present (Not Present); Microcytosis Present (Not Present); Platelet Estimate Normal (Normal); Stomatocytes 1+ (Not Present)
[2019-01-29] MEDS: *HR* Heparin 5,000 UNIT/ML VIAL SQ SCH ×2 (05:14→17:16)
[2019-01-29] MEDS: MethylPREDNISolone 40 MG/ML VIAL IVP SCH ×2 (05:14→17:16)
[2019-01-29] MEDS: *HR* LORazepam 2 MG/ML VIAL IVP PRN ×3 (06:01→16:12)
[2019-01-29] MEDS: Budesonide Neb 0.5 MG/2 ML IH SCH ×2 (07:46→21:06)
[2019-01-29] MEDS: Gabapentin 100 MG CAPSULE PO SCH ×3 (08:36→20:04)
[2019-01-29] MEDS: Divalproex Sodium 125 MG CAPSULE PO SCH ×2 (08:36→20:04)
[2019-01-29] MEDS: amLODIPine 5 MG TABLET PO SCH (08:36)
[2019-01-29] MEDS: risperiDONE 0.25 MG TABLET PO SCH (08:37)
[2019-01-29] MEDS: Piperacillin/Tazobactam 3.375 GM in 0.9 % Sodium Chloride Mini Bag 100 ML IVPB SCH ×2 (08:44→15:32)
[2019-01-29] MEDS: Insulin LISPRO 300 UNITS/3 ML VIAL SQ SCH ×3 (08:48→17:23)
--- NOTE | 2019-01-29 11:15 | Internal Med Progress Note ---
Hospitalist Progress Note - Encounter Date of Encounter: 01/29/19 Time of Encounter: 09:15 - Subjective Interval History: Although patient appears to be tachypneic this morning, patient was seen resting comfortably while sleeping yesterday afternoon. Also, she is able to speak in full sentences without having to stop to rest. Ativan seems to be helping with her anxiety. No fever overnight and respiratory viral panel came back +ve for rhinovirus. - Exam Vitals: Temp Pulse Resp BP Pulse Ox 97.9 F 65 19 142/68 96 01/29/19 07:50 01/29/19 10:03 01/29/19 08:01 01/29/19 07:50 01/29/19 08:01 Exam: General: Patient is alert, mild respiratory distress, oriented x 3 Respiratory: Diminished breath sounds bilaterally but improving aeration, minimal wheezes bilaterally Cardiovascular: Regular rate and rhythm. s1 and s2 normal No clicks, rubs, gallops, or murmurs. No pedal edema Abdomen: Abdomen is soft, nontender. Bowel sounds are present Musculoskeletal: Spontaneously moving all extremities Skin: warm, dry, intact. Neuro: Alert oriented x 3, no focal deficits - Assessment and Plan (1) Acute and chronic respiratory failure with hypercapnia Current Visit: Yes Status: Acute Assessment and Plan: Also with hypoxia likely due to PNA complicated by COPD exacerbation. CT showed severe emphysema as well as bilateral mild to moderate consolidation at the posterior lung bases, suggesting possible aspiration entero/rhinovirus +ve as well on D5 zosyn. Completed 5 days of macrolide speech therapy input appreciated, no overt signs and symptoms of pe netration/aspiration continue steroids, scheduled bronchodilators. Leukocytosis likely due to steroid Large component of her tachypnea appears to be due to her anxiety as her O2 sat seems to be > 90% on 2-3L when resting. Ativan seems to be helping to a certain degree and will increase to 1mg Q4 PRN. would consider psychiatric evaluation tomorrow if her symptoms are refractory to increased dose of ativan (2) Acute exacerbation of chronic obstructive airways disease Current Visit: Yes Status: Acute Assessment and Plan: abx, steroids, bronchodilators as above BiPAP PRN (3) Pneumonia Current Visit: Yes Status: Suspected Assessment and Plan: as above for respiratory failure (4) Diabetes Current Visit: Yes Status: Chronic Assessment and Plan: decrease levemir to 12U at HS, continue low dose sliding scale (5) Hypertension Current Visit: Yes Status: Chronic Assessment and Plan: continue norvasc (6) Nicotine use disorder Current Visit: Yes Status: Acute Assessment and Plan: smoking cessation encouraged nicotine replacement therapy (7) Schizophrenia Current Visit: Yes Status: Chronic Assessment and Plan: continue home meds (8) DVT prophylaxis Current Visit: Yes Status: Acute Assessment and Plan: SQ heparin - Time Spent with Patient Total time spent is greater than 50% in coordination of care (as documented) at patient's floor/unit and/or counseling patient: 25 - 35 minutes Plan of Care Discussed with: nurse Internal Medicine: Result - Labs CBC & Chem 7: 01/29/19 02:16 01/29/19 02:16 Labs: Short CBC 01/29/19 Range/Units 02:16 WBC 11.5 H D (4.3-11.1) K/mcL Hgb 9.6 L (11.5-15.4) g/dL Hct 33.0 L (35.3-44.9) % Plt Count 214 (140-400) K/mcL Neutrophils # 8.7 (1.6-8.9) K/mcL BMP 01/29/19 02:16 Sodium 146 H Potassium 4.2 Chloride 93 L Carbon Dioxide > 45 H* BUN 24 H Creatinine 0.65 Glucose 187 H Calcium 9.4 - ABG Interpretation ABG results: ABG ABG pH 7.31 pH Units (7.32-7.45) L 01/25/19 16:15 ABG pCO2 86 mmHg (35-45) H* 01/25/19 16:15 ABG pO2 99 mmHg (85-104) 01/25/19 16:15 ABG O2 Saturation 96 % (95-98) 01/25/19 16:15 Consult Discharge Plan - Plan Referrals: Reinaldo Carrion Jr, MD [Partnered Physician] - (Patient is going to [facility] no PCP appointment needed) _ (3) Pneumonia Qualifiers: Pneumonia type: aspiration pneumonia Laterality: bilateral Lung location: lower lobe of lung Qualified Code(s): J69.0 - Pneumonitis due to inhalation of food and vomit (4) Diabetes Qualifiers: Diabetes mellitus type: type 2 Diabetes mellitus custodial insulin use: with custodial use Diabetes mellitus complication status: with hyperglycemia Qualified Code(s): E11.65 - Type 2 diabetes mellitus with hyperglycemia; Z79.4 - assisted (current) use of 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
[2019-01-29] MEDS: Nicotine 21 MG PATCH.TD24 TD SCH (13:15)
[2019-01-29] MEDS: risperiDONE 1 MG TABLET PO SCH (20:04)
[2019-01-29] MEDS: Melatonin 3 MG TABLET PO SCH (20:04)
[2019-01-29] MEDS ORDERED: Insulin DETEMIR 100 UNIT/ML X5UNITS SQ SCH (21:00)
[2019-01-30] MEDS: Piperacillin/Tazobactam 3.375 GM in 0.9 % Sodium Chloride Mini Bag 100 ML IVPB SCH ×4 (00:08→23:22)
[2019-01-30 02:10] LABS: Basophils % 0.1 %; Hematocrit 32.2 % (35.3-44.9); Hemoglobin 9.6 g/dL (11.5-15.4); Immature Granulocytes % 0.7 % (0-4); Lymphocytes # 1.1 K/mcL (0.6-4.6); Lymphocytes % 9.2 %; Mean Corpuscular HGB Conc 29.8 g/dL (31.6-35.5); Mean Corpuscular Hemoglobin 28.3 pg (28.0-33.3); Mean Platelet Volume 10.5 fL (9.4-12.4); Monocytes # 0.8 K/mcL (0.0-1.3); Monocytes % 6.5 %; Neutrophils # 9.8 K/mcL (1.6-8.9); Platelet Count 210 K/mcL (140-400); Red Blood Count 3.39 M/mcL (3.82-4.97); Red Cell Distribution Width 14.5 % (11.5-14.5); Segmented Neutrophils % 83.5 %; White Blood Count 11.7 K/mcL (4.3-11.1)
[2019-01-30] MEDS: *HR* LORazepam 2 MG/ML VIAL IVP PRN ×3 (02:30→20:27)
[2019-01-30 02:37] LABS: BUN/Creatinine Ratio 37 (6-26); Blood Urea Nitrogen 23 mg/dL (8-23); Calcium 9.2 mg/dL (8.6-10.3); Carbon Dioxide > 45 mEq/L (23-29); Chloride 94 mEq/L (98-107); Glucose 146 mg/dL (70-105); Osmolality,Calculated 306 (280-300); Sodium 145 mEq/L (136-145); eGFR For African Americans > 60 (> 60); eGFR For Non-African Americans > 60 (> 60)
[2019-01-30] MEDS: Ipratropium/Albuterol Neb 3 ML IH SCH ×6 (04:34→20:31)
[2019-01-30] MEDS: *HR* Heparin 5,000 UNIT/ML VIAL SQ SCH ×2 (05:06→17:12)
[2019-01-30] MEDS: MethylPREDNISolone 40 MG/ML VIAL IVP SCH ×2 (05:06→17:12)
[2019-01-30] MEDS: Budesonide Neb 0.5 MG/2 ML IH SCH ×2 (07:51→20:32)
[2019-01-30] MEDS: Insulin LISPRO 300 UNITS/3 ML VIAL SQ SCH ×3 (08:07→17:26)
[2019-01-30] MEDS: Divalproex Sodium 125 MG CAPSULE PO SCH ×2 (08:07→20:27)
[2019-01-30] MEDS: risperiDONE 0.25 MG TABLET PO SCH (08:07)
[2019-01-30] MEDS: Gabapentin 100 MG CAPSULE PO SCH ×3 (08:08→20:27)
--- NOTE | 2019-01-30 11:58 | Internal Med Progress Note ---
Hospitalist Progress Note - Encounter Date of Encounter: 01/30/19 Time of Encounter: 09:00 - Subjective Interval History: Continues to require prolonged period Of BiPAP due to subjective SOB. Although it appears that the majority of her symptoms are driven by anxiety, she does have occasional drop in her SpO2 in mid 80s along with tachpneic episodes. Ot herwise denies any chest pain or worsening cough/sputum production. Afebrile overnight - Exam Vitals: Temp Pulse Resp BP Pulse Ox 98.0 F 77 18 131/77 94 01/30/19 11:39 01/30/19 11:39 01/30/19 11:40 01/30/19 11:39 01/30/19 11:40 Exam: General: Patient is alert, mild respiratory distress, oriented x 3 Respiratory: Diminished breath sounds bilaterally but improving aeration, minimal wheezes bilaterally Cardiovascular: Regular rate and rhythm. s1 and s2 normal No clicks, rubs, gallops, or murmurs. No pedal edema Abdomen: Abdomen is soft, nontender. Bowel sounds are present Musculoskeletal: Spontaneously moving all extremities Skin: warm, dry, intact. Neuro: Alert oriented x 3, no focal deficits - Assessment and Plan (1) Acute and chronic respiratory failure with hypercapnia Current Visit: Yes Status: Acute Assessment and Plan: Also with hypoxia likely due to PNA complicated by COPD exacerbation. CT showed severe emphysema as well as bilateral mild to moderate consolidation at the posterior lung bases, suggesting possible aspiration entero/rhinovirus +ve as well on D6 zosyn. Aim to complete abx tomorrow. Completed 5 days of macrolide speech therapy input appreciated, no overt signs and symptoms of penetration/aspiration continue steroids, scheduled bronchodilators. Leukocytosis likely due to steroid Large component of her tachypnea appears to be due to her anxiety as her O2 sat seems to be > 90% on 3-4L when resting. Increased Ativan yesterday without significant improvement, will consult psychiatry for recommendation (2) Acute exacerbation of chronic obstructive airways disease Current Visit: Yes Status: Acute Assessment and Plan: abx, steroids, bronchodilators as above BiPAP PRN (3) Pneumonia Current Visit: Yes Status: Suspected Assessment and Plan: as above for respiratory failure (4) Diabetes Current Visit: Yes Status: Chronic Assessment and Plan: decrease levemir to 10U at HS, continue low dose sliding scale (5) Hypertension Current Visit: Yes Status: Chronic Assessment and Plan: increase norvasc to 10mg QD (6) Nicotine use disorder Current Visit: Yes Status: Acute Assessment and Plan: smoking cessation encouraged nicotine replacement therapy (7) Schizophrenia Current Visit: Yes Status: Chronic Assessment and Plan: continue home meds there is a concern on whether she has full capacity to make her own medical decisions and has a court date to see whether a guardian needs to be appointed will consult psych for capacity assessment (8) DVT prophylaxis Current Visit: Yes Status: Acute Assessment and Plan: SQ heparin - Time Spent with Patient Total time spent is greater than 50% in coordination of care (as documented) at patient's floor/unit and/or counseling patient: 25 - 35 minutes Plan of Care Discussed with: nurse Internal Medicine: Result - Labs CBC & Chem 7: 01/30/19 01:23 01/30/19 01:23 Labs: Short CBC 01/30/19 Range/Units 01:23 WBC 11.7 H (4.3-11.1) K/mcL Hgb 9.6 L (11.5-15.4) g/dL Hct 32.2 L (35.3-44.9) % Plt Count 210 (140-400) K/mcL Neutrophils # 9.8 H (1.6-8.9) K/mcL BMP 01/30/19 01:23 Sodium 145 Potassium 4.0 Chloride 94 L Carbon Dioxide > 45 H* BUN 23 Creatinine 0.63 Glucose 146 H Calcium 9.2 - ABG Interpretation ABG results: ABG ABG pH 7.31 pH Units (7.32-7.45) L 01/25/19 16:15 ABG pCO2 86 mmHg (35-45) H* 01/25/19 16:15 ABG pO2 99 mmHg (85-104) 01/25/19 16:15 ABG O2 Saturation 96 % (95-98) 01/25/19 16:15 Consult Discharge Plan - Plan Referrals: Reinaldo Carrion Jr, MD [Partnered Physician] - (Patient is going to [facility] no PCP appointment needed) (3) Pneumonia Qualifiers: Pneumonia type: aspiration pneumonia Laterality: bilateral Lung location: lower lobe of lung Qualified Code(s): J69.0 - Pneumonitis due to inhalation of food and vomit (4) Diabetes Qualifiers: Diabetes mellitus type: type 2 Diabetes mellitus intermediate accountant insulin use: with usp use Diabetes mellitus complication status: with hyperglycemia Qu alified Code(s): E11.65 - Type 2 diabetes mellitus with hyperglycemia; 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
--- NOTE | 2019-01-30 13:35 | Consult Note ---
Date of Encounter: 01/31/19 Time of Encounter: 13:15 Assessment & Recommendation (1) Schizophrenia Current visit: Yes Status: Chronic Assessment & Recommendation: Continue current medications for chronic lynnette Qualifiers: Schizophrenia type: unspecified Qualified Code(s): F20.9 - Schizophrenia, unspecified (2) Anxiety Current visit: Yes Status: Acute Assessment & Recommendation: Due to patients age and poor respiratory status, the respiratory depressive and cognitive impairment properties of benzodiazepines are not ideal for anxiety control. Given the patients panic like states at times it is reasonable to continue using Lorazepam 1mg IVP Q4H PRN if patient responding well without too many cognitive side effects. Recommend Quetiapine 25mg TID PRN for breakthrough anxiety. Recommend increasing Lexapro to 10mg daily for better anxiety control long filler cigar roller machine. History of Present Illness Patient: new to practice Requesting Physician: Raoul Garcia MD Reason for consult: Treatment of Anxiety; Capacity Evaluation History of present illness: Ms. Stanley is a 73 year old female with end stage COPD being evaluated today for anxiety and for decision making capacity. Ms. Stanley was given Ativan 1mg at 0900 and was still somnolent when seen in room this afternoon. Patient was difficult to arouse but was cooperative to interview once aroused. She was arvind ented to person and place but not time or circumstance. Her answers were limited to one or two words due to her gasping breaths. She answered some questions appropriately but not all. She was unable to describe her COPD diagnosis or her current treatments. When asked about the potential consequences of not treating her condition she was unable to verbalize these. Nursing staff reports she has been attempting to remove her oxygen frequently throughout her visit and yelling incoherently at times. Brief chart review reveals she has been staying at a long term due to concerns from Adult Protective Services that she was unable to care for herself. She also has temporary guardian with upcoming court date to determine whether or not she will need a guardian for a more extended period of time. Patient doesn't appear acutely anxious at time of interview, but staff reports indicated when not under the affects of lorazepam the patient remains intensely anxious. CC: Raoul Garcia MD Past Med Surg Social Fam HX - Past Medical History Medical history: COPD, diabetes, kidney stones, TIA - Past Psychiatric History Psychiatric history: Reports: schizophrenia Past psychiatric history details: Unable to attain full psychiatric history through brief chart review. ER notes indicated patient has past diagnosis of Schizophrenia. She is currently being treated with Risperidone 1 mg QHS and 0.5mg QAM, depakote 125mg BID, and Lexapro 5mg. Family psychiatric history: Unknown Family History of Suicide: Unknown - Past Surgical History Surgical History: appendectomy - Social History Smoking Status: Current every day smoker Smokeless Tobacco Status: No Alcohol use: none Drug use: none Occupational status: unemployed Current living situation: Assisted Living Recent Out of Country Travel Within the Last 8 Weeks: No Exposure or Possible Exposure to Illness During Travel: No - Family History Mother Hx Family Respiratory Disorders: Yes Father Hx Family Respiratory Disorders: Yes Medications & Allergies Escitalopram Oxalate 5 mg PO DAILY 01/16/19 [History] Gabapentin [Neurontin] 100 mg PO TID 01/16/19 [History] Ipratropium/Albuterol Neb [Duoneb] 3 ml IH Q4HR 01/16/19 [History] Melatonin [Melatin] 6 mg PO HS 01/16/19 [History] Trazodone HCl 50 mg PO QPM PRN 01/16/19 [History] predniSONE [PredniSONE] 10 mg PO DAILY 01/16/19 [History] risperiDONE [Risperidone] 1 mg PO 1200 01/16/19 [History] Insulin Glargine [Lantus] 10 unit SQ QPM 01/23/19 [History] Insulin LISPRO [HumaLOG] 2 - 10 units SQ TIDWM 01/23/19 [History] Metformin HCl [Fortamet] 1,000 mg PO BID 01/23/19 [History] Divalproex Sodium [Depakote] 125 mg PO BID 01/24/19 [History] Fluticasone/Vilanterol [Breo Ellipta 100-25 Mcg INH] 1 puff IH DAILY 01/24/19 [History] risperiDONE [Risperdal] 0.5 mg PO 0800 01/24/19 [History] Allergy/AdvReac Type Severity Reaction Status Date / Time No Known Allergies Allergy Verified 01/23/19 15:56 Review of Systems Psychiatric: Reports: anxiety, homicidal ideation, confusion, panic attacks. Denies: suicidal ideation, auditory hallucinations, visual hallucinations Psychiatry Exam - Constitutional Vitals: Temp Pulse Resp BP Pulse Ox 98.0 F 77 18 131/77 94 01/30/19 11:39 01/30/19 11:39 01/30/19 11:40 01/30/19 11:39 01/30/19 11:40 General appearance: unkempt, thin - Musculoskeletal Station: stooped Strength & Tone: mild weakness - Psychiatric Patient Orientation: Yes Person, No Time, Yes Place, No Circumstance Level of alertness: Sedated, Responds to painful stimuli Behavior: cooperative, distractible Psychomotor activity: Increased Eye Contact: Minimal Contact Mood Description: Euthymic/stable Patient description of mood: Patient unable to describe mood at this time. Nursing staff reports her mood to be very anxious when not receiving Ativan. Affect description: blunted Speech Volume: Soft/Quiet Speech pattern: limited, impoverished, mumbled Language & Vocabulary: limited Thought Process: Slowed Thinking Thought Content: No Suicidal ideation, No Homicidal ideation, No Paranoid delusion Perceptual Disturbances: No Reacting to internal stimuli, No Auditory hallucinations, No Visual hallucinations Attention Span Ability: Unable to Focus, Unable to Sustain Attention Memory Description: Grossly Intact Patient Reliability: Questionable Historian Fund of knowledge: Yes average Intelligence Estimate: Average Judgment: Poor Insight: Minimal Results - Labs Labs: Laboratory Last Values WBC 11.7 K/mcL (4.3-11.1) H 01/30/19 01:23 RBC 3.39 M/mcL (3.82-4.97) L 01/30/19 01:23 Hgb 9.6 g/dL (11.5-15.4) L 01/30/19 01:23 Hct 32.2 % (35.3-44.9) L 01/30/19 01:23 MCV 95.0 fL (83.0-100.0) 01/30/19 01:23 MCH 28.3 pg (28.0-33.3) 01/30/19 01:23 MCHC 29.8 g/dL (31.6-35.5) L 01/30/19 01:23 RDW 14.5 % (11.5-14.5) 01/30/19 01:23 Plt Count 210 K/mcL (140-400) 01/30/19 01:23 MPV 10.5 fL (9.4-12.4) 01/30/19 01:23 Immature Gran % 0.7 % (0-4) 01/30/19 01:23 Seg Neutrophils % 83.5 % 01/30/19 01:23 Lymphocytes % 9.2 % 01/30/19 01:23 Monocytes % 6.5 % 01/30/19 01:23 Eosinophils % 0.0 % 01/30/19 01:23 Basophils % 0.1 % 01/30/19 01:23 Neutrophils # 9.8 K/mcL (1.6-8.9) H 01/30/19 01:23 Lymphocytes # 1.1 K/mcL (0.6-4.6) 01/30/19 01:23 Monocytes # 0.8 K/mcL (0.0-1.3) 01/30/19 01:23 Eosinophils # 0.0 K/mcL (0.0-0.6) 01/30/19 01:23 Basophils # 0.0 K/mcL (0.0-0.2) 01/30/19 01:23 Platelet Estimate Normal (Normal) 01/29/19 02:16 Large Platelets Present (Not Present) A 01/29/19 02:16 Microcytosis Present (Not Present) A 01/29/19 02:16 Stomatocytes 1+ (Not Present) A 01/29/19 02:16 Sample Site R Radial 01/25/19 16:15 ABG pH 7.31 pH Units (7.32-7.45) L 01/25/19 16:15 ABG pCO2 86 mmHg (35-45) H* 01/25/19 16:15 ABG pO2 99 mmHg (85-104) 01/25/19 16:15 ABG HCO3 44 mEq/L (21-27) H 01/25/19 16:15 ABG Total CO2 46 mEq/L (20-26) H 01/25/19 16:15 ABG O2 Saturation 96 % (95-98) 01/25/19 16:15 ABG Base Excess 13 mEq/L (-2 to 3) H 01/25/19 16:15 Piotr Test N/A 01/25/19 16:15 Respiration Rate 18 01/24/19 22:53 O2 Delivery Device BiPAP 01/25/19 16:15 Blood Gas Modality AVAPS 01/24/19 22:53 Inspired O2 50.0 (1-15=lpm [id number]=%) 01/25/19 16:15 Tidal Volume 450 cc 01/24/19 22:53 PEEP 17 cm H2O 01/25/19 04:43 Pressure Support 6 cm H2O 01/25/19 04:43 Sodium 145 mEq/L (136-145) 01/30/19 01:23 Potassium 4.0 mEq/L (3.5-5.1) 01/30/19 01:23 Chloride 94 mEq/L (98-107) L 01/30/19 01:23 Carbon Dioxide > 45 mEq/L (23-29) H* 01/30/19 01:23 BUN 23 mg/dL (8-23) 01/30/19 01:23 Creatinine 0.63 mg/dL (0.60-1.20) 01/30/19 01:23 Est GFR ( Amer) > 60 (> 60) 01/30/19 01:23 Est GFR (Non-Af Amer) > 60 (> 60) 01/30/19 01:23 BUN/Creatinine Ratio 37 (6-26) H 01/30/19 01:23 Glucose 146 mg/dL (70-105) H 01/30/19 01:23 POC Glucose 230 mg/dL (70-99) H 01/29/19 17:09 Calculated Osmolality 306 (280-300) H 01/30/19 01:23 Lactic Acid 0.5 mmol/L (0.5-2.2) 01/24/19 05:24 Calcium 9.2 mg/dL (8.6-10.3) 01/30/19 01:23 Phosphorus 3.5 mg/dL (2.7-4.5) 01/28/19 03:43 Magnesium 2.0 mg/dL (1.6-2.6) 01/28/19 03:43 Total Bilirubin 0.3 mg/dL (0.3-1.0) 01/28/19 03:43 AST 14 Units/L (13-39) 01/28/19 03:43 ALT 22 Units/L (7-52) 01/28/19 03:43 Alkaline Phosphatase 37 Units/L (34-104) 01/28/19 03:43 Troponin I < 0.03 ng/mL (< 0.04) 01/23/19 16:45 B-Natriuretic Peptide 41 pg/mL (Less than 100) 01/23/19 16:45 Serum Total Protein 5.2 g/dL (6.4-8.9) L 01/28/19 03:43 Albumin 3.5 g/dL (3.5-5.7) 01/28/19 03:43 Globulin 1.7 g/dL (2.4-3.5) L 01/28/19 03:43 Albumin/Globulin Ratio 2.1 (1.1-2.2) 01/28/19 03:43 Procalcitonin 0.05 ng/mL (0.00-0.15) 01/24/19 09:27 Urine Color Yellow (Yellow) 01/23/19 19:24 Urine Clarity Clear (Clear) 01/23/19 19:24 Urine pH 6.0 pH Units (5.0-8.0) 01/23/19 19:24 Ur Specific [place] 1.019 (1.010-1.025) 01/23/19 19:24 Urine Protein 30 mg/dL (Neg-Trace) H 01/23/19 19:24 Urine Glucose (UA) Normal mg/dL (Normal) 01/23/19 19:24 Urine Ketones Trace mg/dL (Negative) H 01/23/19 19:24 Urine Blood Small (Negative) H 01/23/19 19:24 Urine Nitrite Negative (Negative) 01/23/19 19:24 Urine Bilirubin Negative (Negative) 01/23/19 19:24 Urine Urobilinogen Normal mg/dL (Normal) 01/23/19 19:24 Ur Leukocyte Esterase Negative (Negative) 01/23/19 19:24 Urine Microscopic RBC 15-30 per hpf (0-3) H 01/23/19 19:24 Urine Microscopic WBC 5-15 per hpf (0-3) H 01/23/19 19:24 Ur Squamous Epith Cells Many per lpf (None-Few) H 01/23/19 19:24 Urine Bacteria None Seen per hpf (None-Few) 01/23/19 19:24 Hyaline Casts None Seen per lpf (None-Few) 01/23/19 19:24 Ur Culture Indicated? YES (NO) A 01/23/19 19:24 Nasal Screen MRSA (PCR) NOT DETECTED (Not Detect) 01/24/19 19:00 Chlamy pneumoniae PCR Not Detected (Not Detect) 01/28/19 18:20 Adenovirus (PCR) Not Detected (Not Detect) 01/28/19 18:20 B. pertussis DNA (PCR) Not Detected (Not Detect) 01/28/19 18:20 B.parapertussis DNA PCR Not Detected (Not Detect) 01/28/19 18:20 Coronavirus OC43 (PCR) Not Detected (Not Detect) 01/28/19 18:20 Coronavirus HKU1 (PCR) Not Detected (Not Detect) 01/28/19 18:20 Coronavirus 229E (PCR) Not Detected (Not Detect) 01/28/19 18:20 Coronavirus NL63 (PCR) Not Detected (Not Detect) 01/28/19 18:20 Human Metapneumovir PCR Not Detected (Not Detect) 01/28/19 18:20 Influenza A (H1) PCR Not Detected (Not Detect) 01/28/19 18:20 Influ A (H1N1/09) PCR Not Detected (Not Detect) 01/28/19 18:20 Influenza A (H3) PCR Not Detected (Not Detect) 01/28/19 18:20 Influenza A Untype (PCR) Not Detected (Not Detect) 01/28/19 18:20 Influenza Type B (PCR) Not Detected (Not Detect) 01/28/19 18:20 M.pneumoniae DNA (PCR) Not Detected (Not Detect) 01/28/19 18:20 Parainfluenza 1 (PCR) Not Detected (Not Detect) 01/28/19 18:20 Parainfluenza 2 (PCR) Not Detected (Not Detect) 01/28/19 18:20 Parainfluenza 3 (PCR) Not Detected (Not Detect) 01/28/19 18:20 Parainfluenza 4 (PCR) Not Detected (Not Detect) 01/28/19 18:20 RSV (PCR) Not Detected (Not Detect) 01/28/19 18:20 Entero/Rhino (PCR) DETECTED (Not Detect) A 01/28/19 18:20 Person Notif of Crit dr day 01/25/19 16:15 Consult Discharge Plan - Plan Referrals: Reinaldo Carrion Jr, MD [Partnered Physician] - (Patient is going to [facility] no PCP appointment needed) - Attending Attestation I discussed this patient and my medical decision-making was reviewed with the Resident Physician. I agree with the documented findings, disposition and treatment plan as described except to the extent set forth below. Given client's clinical presentation and upcoming hearing to appoint a legal guardian, would say she does not have medical decision making capacity at this time. Agree with increasing Lexapro to help with anxiety. Also agree with continuing Ativan for breakthrough anxiety if she is tolerating it. However, would avoid frequent dosing or increasing dose based on her respiratory issues as benzodiazepines will further suppress her breathing. Can also try low dose Seroquel or Vistaril for breakthrough anxiety. Would start with 25mg TID prn for either medication and increase dose based on tolerability.
[2019-01-30] MEDS: Nicotine 21 MG PATCH.TD24 TD SCH (14:38)
[2019-01-30] MEDS: Melatonin 3 MG TABLET PO SCH (20:26)
[2019-01-30] MEDS: risperiDONE 1 MG TABLET PO SCH (20:27)
[2019-01-30] MEDS: Insulin DETEMIR 100 UNIT/ML X5UNITS SQ SCH (20:34)
[2019-01-31] MEDS: Ipratropium/Albuterol Neb 3 ML IH SCH ×6 (00:21→20:17)
[2019-01-31 02:51] LABS: Basophils % 0.1 %; Hematocrit 34.6 % (35.3-44.9); Hemoglobin 10.2 g/dL (11.5-15.4); Immature Granulocytes % 0.9 % (0-4); Lymphocytes # 1.5 K/mcL (0.6-4.6); Lymphocytes % 13.3 %; Mean Corpuscular HGB Conc 29.5 g/dL (31.6-35.5); Mean Corpuscular Hemoglobin 27.6 pg (28.0-33.3); Mean Corpuscular Volume 93.8 fL (83.0-100.0); Monocytes % 8.6 %; Neutrophils # 8.6 K/mcL (1.6-8.9); Platelet Count 193 K/mcL (140-400); Red Blood Count 3.69 M/mcL (3.82-4.97); Red Cell Distribution Width 14.9 % (11.5-14.5); Segmented Neutrophils % 77.1 %; White Blood Count 11.2 K/mcL (4.3-11.1)
[2019-01-31 03:06] LABS: BUN/Creatinine Ratio 37 (6-26); Blood Urea Nitrogen 24 mg/dL (8-23); Calcium 9.7 mg/dL (8.6-10.3); Carbon Dioxide 44 mEq/L (23-29); Chloride 95 mEq/L (98-107); Glucose 183 mg/dL (70-105); Osmolality,Calculated 305 (280-300); Potassium 4.1 mEq/L (3.5-5.1); Sodium 143 mEq/L (136-145); eGFR For African Americans > 60 (> 60); eGFR For Non-African Americans > 60 (> 60)
[2019-01-31] MEDS: *HR* Heparin 5,000 UNIT/ML VIAL SQ SCH ×2 (05:17→16:39)
[2019-01-31] MEDS: MethylPREDNISolone 40 MG/ML VIAL IVP SCH ×2 (05:17→16:39)
[2019-01-31 05:37] LABS: ABG Base Excess 20 mEq/L (-2 to 3); ABG HCO3 47 mEq/L (21-27); ABG Oxygen Saturation 98 % (95-98); ABG PCO2 70 mmHg (35-45); ABG PH 7.44 pH Units (7.32-7.45); ABG PO2 104 mmHg (85-104); ABG TCO2 49 mEq/L (20-26); Blood Gas Modality AVAPS; Blood Gas PEEP 6 cm H2O; Blood Gas VT 450 cc
[2019-01-31] MEDS: risperiDONE 0.25 MG TABLET PO SCH (08:13)
[2019-01-31] MEDS: Divalproex Sodium 125 MG CAPSULE PO SCH ×2 (08:13→21:53)
[2019-01-31] MEDS: Gabapentin 100 MG CAPSULE PO SCH ×3 (08:13→21:53)
[2019-01-31] MEDS: amLODIPine 5 MG TABLET PO SCH ×2 (08:13→19:24)
[2019-01-31] MEDS: Insulin LISPRO 300 UNITS/3 ML VIAL SQ SCH ×6 (08:14→16:41)
[2019-01-31] MEDS: Piperacillin/Tazobactam 3.375 GM in 0.9 % Sodium Chloride Mini Bag 100 ML IVPB SCH ×2 (08:14→16:40)
[2019-01-31] MEDS: Budesonide Neb 0.5 MG/2 ML IH SCH ×2 (08:16→20:17)
[2019-01-31] MEDS: Nicotine 21 MG PATCH.TD24 TD SCH (11:22)
--- NOTE | 2019-01-31 12:38 | Internal Med Progress Note ---
Hospitalist Progress Note - Encounter Date of Encounter: 01/31/19 Time of Encounter: 09:45 - Subjective Interval History: Patient appears to be much more calm today but continues to require significant period of time on BiPAP. No chest pain or fever/chills. - Exam Vitals: Temp Pulse Resp BP Pulse Ox 98.0 F 96 18 145/77 97 01/31/19 08:05 01/31/19 11:30 01/31/19 11:30 01/31/19 11:30 01/31/19 11:30 Exam: General: Patient is alert, mild respiratory distress, oriented x 3 Respiratory: Diminished breath sounds bilaterally but improving aeration, mild end-expiratory wheezes bilaterally Cardiovascular: Regular rate and rhythm. s1 and s2 normal No clicks, rubs, gallops, or murmurs. No pedal edema Abdomen: Abdomen is soft, nontender. Bowel sounds are present Musculoskeletal: Spontaneously moving all extremities Skin: warm, dry, intact. Neuro: Alert oriented x 3, no focal deficits - Assessment and Plan (1) Acute and chronic respiratory failure with hypercapnia Current Visit: Yes Status: Acute Assessment and Plan: Also with hypoxia likely due to PNA complicated by COPD exacerbation. CT showed severe emphysema as well as bilateral mild to moderate consolidation at the posterior lung bases, suggesting possible aspiration entero/rhinovirus +ve as well on D7 zosyn, complete today. Pt already completed 5 days of macrolide ABG today shows improvement in both CO2 and O2 speech therapy input appreciated, no overt signs and symptoms of penetrat ion/aspiration continue steroids, scheduled bronchodilators. Leukocytosis likely due to steroid Large component of her tachypnea appears to be due to her anxiety as her O2 sat seems to be > 90% on 3-4L when resting. psych input appreciated, would try seroquel 25mg TID PRN for anxiety as well and increase lexapro to 10mg QD (2) Acute exacerbation of chronic obstructive airways disease Current Visit: Yes Status: Acute Assessment and Plan: abx, steroids, bronchodilators as above BiPAP PRN (3) Pneumonia Current Visit: Yes Status: Suspected Assessment and Plan: as above for respiratory failure (4) Diabetes Current Visit: Yes Status: Chronic Assessment and Plan: continue basal bolus insulin, add premeal lispro (5) Hypertension Current Visit: Yes Status: Chronic Assessment and Plan: on norvasc 10mg QD (6) Nicotine use disorder Current Visit: Yes Status: Acute Assessment and Plan: smoking cessation encouraged nicotine replacement therapy (7) Schizophrenia Current Visit: Yes Status: Chronic Assessment and Plan: continue home meds there is a concern on whether she has full capacity to make her own medical decisions and has a court date to see whether a guardian needs to be appointed appreciate psych input, "Given client's clinical presentation and upcoming hearing to appoint a legal guardian, would say she does not have medical decision making capacity at this time" may require ethics consultation on Saturday to delineate goals of care and medical decision making as it appears that no one is officially appointed as legal guardian (8) DVT prophylaxis Current Visit: Yes Status: Acute Assessment and Plan: SQ heparin - Time Spent with Patient Total time spent is greater than 50% in coordination of care (as documented) at patient's floor/unit and/or counseling patient: 25 - 35 minutes Plan of Care Discussed with: nurse Internal Medicine: Result - Labs CBC & Chem 7: 01/31/19 02:07 01/31/19 02:07 Labs: Short CBC 01/31/19 Range/Units 02:07 WBC 11.2 H (4.3-11.1) K/mcL Hgb 10.2 L (11.5-15.4) g/dL Hct 34.6 L (35.3-44.9) % Plt Count 193 (140-400) K/mcL Neutrophils # 8.6 (1.6-8.9) K/mcL BMP 01/31/19 02:07 Sodium 143 Potassium 4.1 Chloride 95 L Carbon Dioxide 44 H* BUN 24 H Creatinine 0.65 Glucose 183 H Calcium 9.7 - ABG Interpretation ABG results: ABG ABG pH 7.44 pH Units (7.32-7.45) 01/31/19 05:31 ABG pCO2 70 mmHg (35-45) H* 01/31/19 05:31 ABG pO2 104 mmHg (85-104) 01/31/19 05:31 ABG O2 Saturation 98 % (95-98) 01/31/19 05:31 Consult Discharge Plan - Plan Referrals: Reinaldo Carrion Jr, MD [Partnered Physician] - (Patient is going to [facility] no PCP appointment needed) (3) Pneumonia Qualifiers: Pneumonia type: aspiration pneumonia Laterality: bilateral Lung location: lower lobe of lung Qualified Code(s): J69.0 - Pneumonitis due to inhalation of food and vomit (4) Diabetes Qualifiers: Diabetes mellitus type: type 2 Diabetes mellitus adjunct faculty for medical terminology insulin use: with fdc use Diabetes mellitus complication status: with hyperglycemia Qualified Code(s): E11.65 - Type 2 diabetes mellitus with hyperglycemia; Z79.4 - USP (current) use of 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
[2019-01-31] MEDS: Melatonin 3 MG TABLET PO SCH (21:52)
[2019-01-31] MEDS: risperiDONE 1 MG TABLET PO SCH (21:52)
[2019-01-31] MEDS: Insulin DETEMIR 100 UNIT/ML X5UNITS SQ SCH (21:53)
[2019-02-01] MEDS: Ipratropium/Albuterol Neb 3 ML IH SCH ×7 (00:01→23:00)
[2019-02-01] MEDS: Piperacillin/Tazobactam 3.375 GM in 0.9 % Sodium Chloride Mini Bag 100 ML IVPB SCH (00:14)
[2019-02-01 05:47] LABS: Basophils % 0.1 %; Hematocrit 31.9 % (35.3-44.9); Hemoglobin 9.5 g/dL (11.5-15.4); Immature Granulocytes % 0.6 % (0-4); Lymphocytes # 1.6 K/mcL (0.6-4.6); Lymphocytes % 16.5 %; Mean Corpuscular HGB Conc 29.8 g/dL (31.6-35.5); Mean Corpuscular Hemoglobin 28.1 pg (28.0-33.3); Mean Corpuscular Volume 94.4 fL (83.0-100.0); Mean Platelet Volume 10.5 fL (9.4-12.4); Monocytes # 1.3 K/mcL (0.0-1.3); Monocytes % 13.1 %; Neutrophils # 6.7 K/mcL (1.6-8.9); Platelet Count 213 K/mcL (140-400); Red Blood Count 3.38 M/mcL (3.82-4.97); Red Cell Distribution Width 14.8 % (11.5-14.5); Segmented Neutrophils % 69.7 %; White Blood Count 9.5 K/mcL (4.3-11.1)
[2019-02-01 06:09] LABS: BUN/Creatinine Ratio 45 (6-26); Blood Urea Nitrogen 31 mg/dL (8-23); Calcium 9.4 mg/dL (8.6-10.3); Carbon Dioxide 44 mEq/L (23-29); Chloride 99 mEq/L (98-107); Glucose 180 mg/dL (70-105); Osmolality,Calculated 313 (280-300); Potassium 3.7 mEq/L (3.5-5.1); Sodium 146 mEq/L (136-145); eGFR For African Americans > 60 (> 60); eGFR For Non-African Americans > 60 (> 60)
[2019-02-01] MEDS: *HR* Heparin 5,000 UNIT/ML VIAL SQ SCH ×2 (06:21→18:19)
[2019-02-01] MEDS: MethylPREDNISolone 40 MG/ML VIAL IVP SCH (06:21)
[2019-02-01] MEDS: Insulin LISPRO 300 UNITS/3 ML VIAL SQ SCH ×6 (07:34→17:39)
[2019-02-01] MEDS: Budesonide Neb 0.5 MG/2 ML IH SCH ×2 (07:47→20:23)
[2019-02-01] MEDS: amLODIPine 5 MG TABLET PO SCH (07:57)
[2019-02-01] MEDS: risperiDONE 0.25 MG TABLET PO SCH (07:57)
[2019-02-01] MEDS: Gabapentin 100 MG CAPSULE PO SCH ×3 (07:57→20:12)
[2019-02-01] MEDS: Divalproex Sodium 125 MG CAPSULE PO SCH ×2 (07:57→20:12)
--- NOTE | 2019-02-01 11:33 | Internal Med Progress Note ---
Hospitalist Progress Note - Encounter Date of Encounter: 02/01/19 Time of Encounter: 09:00 - Subjective Interval History: Reports improvement in her shortness of breath today. Remains off bipap for the most part during day time. Denies any chest pain or worsening cough. - Exam Vitals: Temp Pulse Resp BP Pulse Ox 98.2 F 70 27 122/59 97 02/01/19 06:56 02/01/19 06:56 02/01/19 11:08 02/01/19 06:56 02/01/19 11:08 Exam: General: Patient is alert, mild respiratory distress, oriented x 3 Respiratory: Diminished breath sounds bilaterally but improving aeration, mild end-expiratory wheezes bilaterally Cardiovascular: Regular rate and rhythm. s1 and s2 normal No clicks, rubs, gallops, or murmurs. No pedal edema Abdomen: Abdomen is soft, nontender. Bowel sounds are present Musculoskeletal: Spontaneously moving all extremities Skin: warm, dry, intact. Neuro: Alert oriented x 3, no focal deficits - Assessment and Plan (1) Acute and chronic respiratory failure with hypercapnia Current Visit: Yes Status: Acute Assessment and Plan: Also with hypoxia likely due to PNA complicated by COPD exacerbation. CT showed severe emphysema as well as bilateral mild to moderate consolidation at the posterior lung bases, suggesting possible aspiration entero/rhinovirus +ve as well completed 7 days of zosyn and 5 days of macrolide. WBC normal today. ABG also showed improvement in both CO2 and O2 speech therapy input appreciated, no overt signs and symptoms of penetration/aspiration will start PO Prednisone from tomorrow. Continue scheduled bronchodilators with PRN bipap Large component of her tachypnea appears to be due to her anxiety. Better controlled after seroquel 25mg TID PRn was started. Continue PRN Ativan if symptoms are not controlled on seroquel lexapro increased to 10mg QD will need to ensure the availability of BiPAP at [facility] prior to DC (2) Acute exacerbation of chronic obstructive airways disease Current Visit: Yes Status: Acute Assessment and Plan: abx, steroids, bronchodilators as above BiPAP PRN (3) Pneumonia Current Visit: Yes Status: Suspected Assessment and Plan: as above for respiratory failure (4) Diabetes Current Visit: Yes Status: Chronic Assessment and Plan: continue basal bolus insulin, will increase premeal lispro to 8U TID (5) Hypertension Current Visit: Yes Status: Chronic Assessment and Plan: on norvasc 10mg QD (6) Nicotine use disorder Current Visit: Yes Status: Acute Assessment and Plan: smoking cessation encouraged nicotine replacement therapy (7) Schizophrenia Current Visit: Yes Status: Chronic Assessment and Plan: continue home meds there is a concern on whether she has full capacity to make her own medical decisions and has a court date to see whether a guardian needs to be appointed appreciate psych input, "Given client's clinical presentation and upcoming hearing to appoint a legal guardian, would say she does not have medical decision making capacity at this time" may require ethics consultation on Saturday to delineate goals of care and medical decision making as it appears that no one is officially appointed as legal guardian (8) DVT prophylaxis Current Visit: Yes Status: Acute Assessment and Plan: SQ heparin - Time Spent with Patient Total time spent is greater than 50% in coordination of care (as documented) at patient's floor/unit and/or counseling patient: 25 - 35 minutes Plan of Care Discussed with: nurse Internal Medicine: Result - Labs CBC & Chem 7: 02/01/19 05:11 02/01/19 05:10 Labs: Short CBC 02/01/19 Range/Units 05:11 WBC 9.5 (4.3-11.1) K/mcL Hgb 9.5 L (11.5-15.4) g/dL Hct 31.9 L (35.3-44.9) % Plt Count 213 (140-400) K/mcL Neutrophils # 6.7 (1.6-8.9) K/mcL BMP 02/01/19 05:10 Sodium 146 H Potassium 3.7 Chloride 99 Carbon Dioxide 44 H* BUN 31 H Creatinine 0.69 Glucose 180 H Calcium 9.4 - ABG Interpretation ABG results: ABG ABG pH 7.44 pH Units (7.32-7.45) 01/31/19 05:31 ABG pCO2 70 mmHg (35-45) H* 01/31/19 05:31 ABG pO2 104 mmHg (85-104) 01/31/19 05:31 ABG O2 Saturation 98 % (95-98) 01/31/19 05:31 Consult Discharge Plan - Plan Referrals: Reinaldo Carrion Jr, MD [Partnered Physician] - (Patient is going to [facility] no PCP appointment needed) (3) Pneumonia Qualifiers: Pneumonia type: aspiration pneumonia Laterality: bilateral Lung location: lower lobe of lung Qualified Code(s): J69.0 - Pneumonitis due to inhalation of food and vomit (4) Diabetes Qualifiers: Diabetes mellitus type: type 2 Diabetes mellitus penitentiary insulin use: with penitentiary use Diabetes mellitus complication status: with hyperglycemia Qualified Code(s): E11.65 - Type 2 diabetes mellitus with hyperglycemia; 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
[2019-02-01] MEDS: Nicotine 21 MG PATCH.TD24 TD SCH (12:04)
[2019-02-01] MEDS ORDERED: MethylPREDNISolone 40 MG/ML VIAL IVP ONE (18:00)
[2019-02-01] MEDS: Melatonin 3 MG TABLET PO SCH (20:12)
[2019-02-01] MEDS: risperiDONE 1 MG TABLET PO SCH (20:12)
[2019-02-01] MEDS: Insulin DETEMIR 100 UNIT/ML X5UNITS SQ SCH (20:18)
[2019-02-01] MEDS: *HR* LORazepam 2 MG/ML VIAL IVP PRN (21:38)
[2019-02-02] MEDS: *HR* LORazepam 2 MG/ML VIAL IVP PRN (02:34)
[2019-02-02] MEDS: Ipratropium/Albuterol Neb 3 ML IH SCH ×6 (03:42→23:21)
[2019-02-02] MEDS: *HR* Heparin 5,000 UNIT/ML VIAL SQ SCH ×2 (05:17→17:43)
[2019-02-02] MEDS: Budesonide Neb 0.5 MG/2 ML IH SCH ×2 (07:15→20:16)
[2019-02-02] MEDS: Divalproex Sodium 125 MG CAPSULE PO SCH ×2 (08:01→21:16)
[2019-02-02] MEDS: Gabapentin 100 MG CAPSULE PO SCH ×3 (08:01→21:17)
[2019-02-02] MEDS: predniSONE 20 MG TABLET PO SCH (08:01)
[2019-02-02] MEDS: amLODIPine 5 MG TABLET PO SCH (08:01)
[2019-02-02] MEDS: risperiDONE 0.25 MG TABLET PO SCH (08:01)
[2019-02-02] MEDS: Insulin LISPRO 300 UNITS/3 ML VIAL SQ SCH ×6 (08:02→17:44)
--- NOTE | 2019-02-02 12:29 | Internal Med Progress Note ---
Hospitalist Progress Note - Encounter Date of Encounter: 02/02/19 Time of Encounter: 09:45 - Subjective Interval History: No acute events overnight, she was again able to remain off bipap for the most part during the day. No worsening cough or shortness of breath. No fever/chills - Exam Vitals: Temp Pulse Resp BP Pulse Ox 98.2 F 80 18 128/54 98 02/02/19 10:54 02/02/19 10:54 02/02/19 11:32 02/02/19 10:54 02/02/19 11:32 Exam: General: Patient is alert, not in distress, oriented x 3 Respiratory: Diminished breath sounds bilaterally but improving aeration, mild end-expiratory wheezes bilaterally Cardiovascular: Regular rate and rhythm. s1 and s2 normal No clicks, rubs, gallops, or murmurs. No pedal edema Abdomen: Abdomen is soft, nontender. Bowel sounds are present Musculoskeletal: Spontaneously moving all extremities Skin: warm, dry, intact. Neuro: Alert oriented x 3, no focal deficits - Assessment and Plan (1) Acute and chronic respiratory failure with hypercapnia Current Visit: Yes Status: Acute Assessment and Plan: Also with hypoxia likely due to PNA complicated by COPD exacerbation. CT showed severe emphysema as well as bilateral mild to moderate consolidation at the posterior lung bases, suggesting possible aspiration entero/rhinovirus +ve as well completed 7 days of zosyn and 5 days of macrolide. WBC normal. ABG also showed improvement in both CO2 and O2 speech therapy input appreciated, no overt signs and symptoms of p enetration/aspiration transitioned to PO Prednisone today, aim to complete 2 week taper. Continue sc heduled bronchodilators with PRN bipap Large component of her tachypnea appears to be due to her anxiety. Better controlled after seroquel 25mg TID PRN was started. Continue PRN Ativan if symptoms are not controlled on seroquel lexapro increased to 10mg QD will need to ensure the availability of BiPAP at ECF prior to DC (2) Acute exacerbation of chronic obstructive airways disease Current Visit: Yes Status: Acute Assessment and Plan: abx, steroids, bronchodilators as above BiPAP PRN (3) Pneumonia Current Visit: Yes Status: Suspected Assessment and Plan: as above for respiratory failure (4) Diabetes Current Visit: Yes Status: Chronic Assessment and Plan: continue basal bolus insulin (5) Hypertension Current Visit: Yes Status: Chronic Assessment and Plan: on norvasc 10mg QD (6) Nicotine use disorder Current Visit: Yes Status: Acute Assessment and Plan: smoking cessation encouraged nicotine replacement therapy (7) Schizophrenia Current Visit: Yes Status: Chronic Assessment and Plan: continue home meds there is a concern on whether she has full capacity to make her own medical decisions and has a court date to see whether a guardian needs to be appointed appreciate psych input, "Given client's clinical presentation and upcoming hearing to appoint a legal guardian, would say she does not have medical decis ion making capacity at this time" (8) DVT prophylaxis Current Visit: Yes Status: Acute Assessment and Plan: SQ heparin - Time Spent with Patient Total time spent is greater than 50% in coordination of care (as documented) at patient's floor/unit and/or counseling patient: 25 - 35 minutes Plan of Care Discussed with: case management (discussed with pt's sister in great detail regarding the hospital course and anticipated discharge plan) Internal Medicine: Result - Labs CBC & Chem 7: 02/01/19 05:11 02/01/19 05:10 - ABG Interpretation ABG results: ABG ABG pH 7.44 pH Units (7.32-7.45) 01/31/19 05:31 ABG pCO2 70 mmHg (35-45) H* 01/31/19 05:31 ABG pO2 104 mmHg (85-104) 01/31/19 05:31 ABG O2 Saturation 98 % (95-98) 01/31/19 05:31 Consult Discharge Plan - Plan Referrals: Reinaldo Carrion Jr, MD [Partnered Physician] - (Patient is going to [facility] no PCP appointment needed) (3) Pneumonia Qualifiers: Pneumonia type: aspiration pneumonia Laterality: bilateral Lung location: lower lobe of lung Qualified Code(s): J69.0 - Pneumonitis due to inhalation of food and vomit (4) Diabetes Qualifiers: Diabetes mellitus type: type 2 Diabetes mellitus 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
[2019-02-02] MEDS: Nicotine 21 MG PATCH.TD24 TD SCH (14:48)
[2019-02-02] MEDS: risperiDONE 1 MG TABLET PO SCH (21:16)
[2019-02-02] MEDS: Insulin DETEMIR 100 UNIT/ML X5UNITS SQ SCH (21:16)
[2019-02-02] MEDS: Melatonin 3 MG TABLET PO SCH (21:16)
[2019-02-03] MEDS: Ipratropium/Albuterol Neb 3 ML IH SCH ×5 (03:57→19:38)
[2019-02-03] MEDS: *HR* Heparin 5,000 UNIT/ML VIAL SQ SCH ×2 (06:18→17:13)
[2019-02-03] MEDS: Budesonide Neb 0.5 MG/2 ML IH SCH ×2 (07:16→19:38)
[2019-02-03] MEDS: risperiDONE 0.25 MG TABLET PO SCH (08:12)
[2019-02-03] MEDS: Acetaminophen 325 MG TABLET PO PRN (08:13)
[2019-02-03] MEDS: amLODIPine 5 MG TABLET PO SCH (08:13)
[2019-02-03] MEDS: predniSONE 20 MG TABLET PO SCH (08:13)
[2019-02-03] MEDS: Divalproex Sodium 125 MG CAPSULE PO SCH ×2 (08:13→21:05)
[2019-02-03] MEDS: Gabapentin 100 MG CAPSULE PO SCH ×3 (08:13→21:04)
[2019-02-03] MEDS: Insulin LISPRO 300 UNITS/3 ML VIAL SQ SCH ×7 (08:14→16:19)
--- NOTE | 2019-02-03 11:52 | Internal Med Progress Note ---
Hospitalist Progress Note - Encounter Date of Encounter: 02/03/19 Time of Encounter: 09:45 - Subjective Interval History: No acute events overnight. Very briefly required BiPAP at around noon but was quickly weaned to 3 L of nasal cannula in a couple of hours. Denies any worsening shortness of breath or cough. No fever overnight - Exam Vitals: Temp Pulse Resp BP Pulse Ox 97.6 F 80 18 118/67 100 02/03/19 11:07 02/03/19 11:07 02/03/19 11:09 02/03/19 11:07 02/03/19 11:09 Exam: General: Patient is alert, not in distress, oriented x 3 Respiratory: Diminished breath sounds bilaterally but improving aeration, minimal end-expiratory wheezes bilaterally Cardiovascular: Regular rate and rhythm. s1 and s2 normal No clicks, rubs, gallops, or murmurs. No pedal edema Abdomen: Abdomen is soft, nontender. Bowel sounds are present Musculoskeletal: Spontaneously moving all extremities Skin: warm, dry, intact. Neuro: Alert oriented x 3, no focal deficits - Assessment and Plan (1) Acute and chronic respiratory failure with hypercapnia Current Visit: Yes Status: Acute Assessment and Plan: Also with hypoxia likely due to PNA complicated by COPD exacerbation. CT showed severe emphysema as well as bilateral mild to moderate consolidation at the posterior lung bases, suggesting possible aspiration entero/rhinovirus +ve as well completed 7 days of zosyn and 5 days of macrolide. WBC normal. ABG also showed improvement in both CO2 and O2 speech therapy input appreciated, no overt signs and symptoms of penetration/aspiration transitioned to PO Prednisone on 02/02, aim to complete 2 week taper. Continue scheduled bronchodilators with PRN bipap Large component of her tachypnea appears to be due to her anxiety. Better controlled after seroquel 25mg TID PRN was started. Continue PRN Ativan if symptoms are not controlled on seroquel lexapro increased to 10mg QD will need to ensure the availability of BiPAP at ECF prior to DC (2) Acute exacerbation of chronic obstructive airways disease Current Visit: Yes Status: Acute Assessment and Plan: abx, steroids, bronchodilators as above BiPAP PRN (3) Pneumonia Current Visit: Yes Status: Suspected Assessment and Plan: as above for respiratory failure (4) Diabetes Current Visit: Yes Status: Chronic Assessment and Plan: Suboptimally controlled with improving oral intake and ongoing steroid use continue basal bolus insulin but increase premeal lispro to 12U TIDWM and levemir to 14U HS (5) Hypertension Current Visit: Yes Status: Chronic Assessment and Plan: on norvasc 10mg QD (6) Nicotine use disorder Current Visit: Yes Status: Acute Assessment and Plan: smoking cessation encouraged nicotine replacement therapy (7) Schizophrenia Current Visit: Yes Status: Chronic Assessment and Plan: continue home meds there is a concern on whether she has full capacity to make her own medical decisions and has a court date to see whether a guardian needs to be appointed appreciate psych input, "Given client's clinical presentation and upcoming hearing to appoint a legal guardian, would say she does not have medical decision making capacity at this time" (8) DVT prophylaxis Current Visit: Yes Status: Acute Assessment and Plan: SQ heparin - Time Spent with Patient Total time spent is greater than 50% in coordination of care (as documented) at patient's floor/unit and/or counseling patient: 25 - 35 minutes Plan of Care Discussed with: social work Internal Medicine: Result - Labs CBC & Chem 7: 02/01/19 05:11 02/01/19 05:10 - ABG Interpretation ABG results: ABG ABG pH 7.44 pH Units (7.32-7.45) 01/31/19 05:31 ABG pCO2 70 mmHg (35-45) H* 01/31/19 05:31 ABG pO2 104 mmHg (85-104) 01/31/19 05:31 ABG O2 Saturation 98 % (95-98) 01/31/19 05:31 Consult Discharge Plan - Plan Referrals: Reinaldo Carrion Jr, MD [Partnered Physician] - (Patient is going to [facility] no PCP appointment needed) (3) Pneumonia Qualifiers: Pneumonia type: aspiration pneumonia Laterality: bilateral Lung location: lower lobe of lung Qualified Code(s): J69.0 - Pneumonitis due to inhalation of food and vomit (4) Diabetes 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
[2019-02-03] MEDS: Nicotine 21 MG PATCH.TD24 TD SCH (16:18)
[2019-02-03] MEDS: risperiDONE 1 MG TABLET PO SCH (21:04)
[2019-02-03] MEDS: Insulin DETEMIR 100 UNIT/ML X5UNITS SQ SCH (21:05)
[2019-02-03] MEDS: Melatonin 3 MG TABLET PO SCH (21:05)
[2019-02-04] MEDS: Ipratropium/Albuterol Neb 3 ML IH SCH ×7 (00:06→23:43)
[2019-02-04] MEDS: *HR* Heparin 5,000 UNIT/ML VIAL SQ SCH ×2 (05:15→17:40)
[2019-02-04] MEDS: Budesonide Neb 0.5 MG/2 ML IH SCH ×2 (07:18→19:54)
[2019-02-04] MEDS: amLODIPine 5 MG TABLET PO SCH (08:07)
[2019-02-04] MEDS: predniSONE 20 MG TABLET PO SCH (08:35)
[2019-02-04] MEDS: Divalproex Sodium 125 MG CAPSULE PO SCH ×2 (08:35→22:26)
[2019-02-04] MEDS: Gabapentin 100 MG CAPSULE PO SCH ×3 (08:35→22:26)
[2019-02-04] MEDS: risperiDONE 0.25 MG TABLET PO SCH (08:35)
[2019-02-04] MEDS: Insulin LISPRO 300 UNITS/3 ML VIAL SQ SCH ×6 (08:36→17:41)
[2019-02-04] MEDS: Nicotine 21 MG PATCH.TD24 TD SCH (13:08)
[2019-02-04] MEDS: Acetaminophen 325 MG TABLET PO PRN (15:22)
--- NOTE | 2019-02-04 16:04 | Internal Med Progress Note ---
Hospitalist Progress Note - Encounter Date of Encounter: 02/04/19 Time of Encounter: 11:15 - Subjective Interval History: Seen at bedside. Has been doing good. Dneies any SOB, fever, or chest pain. Denies any ohter complaitns. - Exam Vitals: Temp Pulse Resp BP Pulse Ox 97.7 F 76 16 106/61 97 02/04/19 14:45 02/04/19 14:45 02/04/19 14:45 02/04/19 14:45 02/04/19 14:45 Exam: General: Alert and oriented, no physical distress, able to follow commands. Respiratory: Normal vesicular breathing, no added sounds, breathing sounds decreased in both lung bases CVS: Normal heart sounds, no murmurs, no edema. Extremities: No peripheral edema, peripheral pulses intact. Lymph nodes: No lymphadenopathy Gastrointestinal: Soft, nontender abdomen, normal abdominal sounds. No distention noted. Genitourinary: No paravertebral tenderness. Neurological: Alert and oriented. No focal deficits. Cranial nerves II-XII intact. - Assessment and Plan (1) Acute and chronic respiratory failure with hypercapnia Current Visit: Yes Status: Acute Assessment and Plan: Likely due to pneumonia with COPD exacerbation. CT scan consistent with severe emphysema as well as bilateral mild to moderate consolidation at the posterior lung bases, suggesting possible aspiration Also had rhinovirus positive. Has completed 7 days of Zosyn and 5 days of azithromycin. No overt findings and symptoms of aspiration. Currently on prednisone taper. Continue bronchodilators. Tachypne ais also contributed by the anxiety, still requiring PRN seroquel. (2) Pneumonia Current Visit: Yes Status: Suspected Assessment and Plan: -Management plan outlined above (3) Acute exacerbation of chronic obstructive airways disease Current Visit: Yes Status: Acute Assessment and Plan: -Stroid taper -BPAP as needed -Bronchodilators PRN (4) DVT prophylaxis Current Visit: Yes Status: Acute Assessment and Plan: -SQ heparin (5) Diabetes Current Visit: Yes Status: Chronic Assessment and Plan: -BG levels elevated pemeal times/ -Likely to improve with th sterodi tapering down dose -Cont the current management. (6) Hypertension Current Visit: Yes Status: Chronic Assessment and Plan: -BP within reaonable limits -Cont amlodipine (7) Nicotine use disorder Current Visit: Yes Status: Acute Assessment and Plan: -Motivated to quit smoking -smoking cessation encouraged -nicotine replacement therapy (8) Schizophrenia Current Visit: Yes Status: Chronic Assessment and Plan: -continue home meds -there is a concern on whether she has full capacity to make her own medical decisions and has a court date to see whether a guardian needs to be appointed -appreciate psych input, "Given client's clinical presentation and upcoming hearing to appoint a legal guardian, would say she does not have medical decisio n making capacity at this time" - Time Spent with Patient Total time spent is greater than 50% in coordination of care (as documented) at patient's floor/unit and/or counseling patient: Internal Medicine: Result - Labs CBC & Chem 7: 02/01/19 05:11 02/01/19 05:10 - ABG Interpretation ABG results: ABG ABG pH 7.44 pH Units (7.32-7.45) 01/31/19 05:31 ABG pCO2 70 mmHg (35-45) H* 01/31/19 05:31 ABG pO2 104 mmHg (85-104) 01/31/19 05:31 ABG O2 Saturation 98 % (95-98) 01/31/19 05:31 Consult Discharge Plan - Plan Referrals: Reinaldo Carrion Jr, MD [Partnered Physician] - (Patient is going to [facility] no PCP appointment needed) (2) Pneumonia Qualifiers: Pneumonia type: aspiration pneumonia Laterality: bilateral Lung location: lower lobe of lung Qualified Code(s): J69.0 - Pneumonitis due to inhalation of food and vomit (5) Diabetes Qualifiers: Diabetes mellitus type: type 2 Diabetes mellitus mcc insulin use: with mcc use Diabetes mellitus complication status: with hyperglycemia Qualified Code(s): E11.65 - Type 2 diabetes mellitus with hyperglycemia; Z79.4 - half-way (current) use of insulin (6) Hypertension Qualifiers: Hypertension type: unspecified Qualified Code(s): I10 - Essential (primary) hypertension (8) Schizophrenia Qualifiers: Schizophrenia type: unspecified Qualified Code(s): F20.9 - Schizophrenia, unspecified
[2019-02-04] MEDS: Melatonin 3 MG TABLET PO SCH (22:25)
[2019-02-04] MEDS: Insulin DETEMIR 100 UNIT/ML X5UNITS SQ SCH (22:26)
[2019-02-04] MEDS: risperiDONE 1 MG TABLET PO SCH (22:26)
[2019-02-05] MEDS: Ipratropium/Albuterol Neb 3 ML IH SCH ×5 (04:04→20:00)
[2019-02-05] MEDS: *HR* Heparin 5,000 UNIT/ML VIAL SQ SCH ×2 (06:44→17:22)
[2019-02-05] MEDS: Budesonide Neb 0.5 MG/2 ML IH SCH ×2 (07:41→20:00)
[2019-02-05] MEDS: Insulin LISPRO 300 UNITS/3 ML VIAL SQ SCH ×6 (08:54→17:22)
[2019-02-05] MEDS: risperiDONE 0.25 MG TABLET PO SCH (09:05)
[2019-02-05] MEDS: predniSONE 20 MG TABLET PO SCH (09:05)
[2019-02-05] MEDS: Divalproex Sodium 125 MG CAPSULE PO SCH ×2 (09:05→21:51)
[2019-02-05] MEDS: amLODIPine 5 MG TABLET PO SCH (09:05)
[2019-02-05] MEDS: Gabapentin 100 MG CAPSULE PO SCH ×3 (09:05→21:50)
[2019-02-05] MEDS: Acetaminophen 325 MG TABLET PO PRN ×2 (09:05→22:00)
[2019-02-05] MEDS: Saline Nasal Spray 44 ML BOTTLE NS PRN (12:17)
--- NOTE | 2019-02-05 13:05 | Internal Med Progress Note ---
Hospitalist Progress Note - Encounter Date of Encounter: 02/05/19 Time of Encounter: 11:30 - Subjective Interval History: Seen at bedside.Looking comforrable.Deneis any acute complaitns, denies chest pain, fever, chills, pain - Exam Vitals: Temp Pulse Resp BP Pulse Ox 98.7 F 81 18 126/65 94 02/05/19 11:21 02/05/19 11:21 02/05/19 11:21 02/05/19 11:21 02/05/19 11:21 Exam: General: Alert, no physical distress, able to follow commands. Respiratory: Normal vesicular breathing, no added sounds, breathing sounds decreased in both lung bases CVS: Normal heart sounds, no murmurs, no edema. Extremities: No peripheral edema, peripheral pulses intact. Lymph nodes: No lymphadenopathy Gastrointestinal: Soft, nontender abdomen, normal abdominal sounds. No dist ention noted. Genitourinary: No paravertebral tenderness. Neurological: Alert and oriented. No focal deficits. Cranial nerves II-XII intact. - Assessment and Plan (1) Acute and chronic respiratory failure with hypercapnia Current Visit: Yes Status: Acute Assessment and Plan: Likely due to pneumonia with COPD exacerbation. CT scan consistent with severe emphysema as well as bilateral mild to moderate consolidation at the posterior lung bases, suggesting possible aspiration -Completed antibiotcs Currently on prednisone taper. Continue bronchodilators. Tachypne ais also contributed by the anxiety, still requiring PRN seroquel. (2) Pneumonia Current Visit: Yes Status: Suspected Assessment and Plan: -Resolved -Management plan outlined above (3) Acute exacerbation of chronic obstructive airways disease Current Visit: Yes Status: Acute Assessment and Plan: -Stroid taper -BPAP as needed -Bronchodilators PRN (4) DVT prophylaxis Current Visit: Yes Status: Acute Assessment and Plan: -SQ heparin (5) Diabetes Current Visit: Yes Status: Chronic Assessment and Plan: -Cont the current management. (6) Hypertension Current Visit: Yes Status: Chronic Assessment and Plan: -BP within reaonable limits -Cont amlodipine (7) Nicotine use disorder Current Visit: Yes Status: Acute Assessment and Plan: -Motivated to quit smoking -smoking cessation encouraged -nicotine replacement therapy (8) Schizophrenia Current Visit: Yes Status: Chronic Assessment and Plan: -continue home meds -there is a concern on whether she has full capacity to make her own medical decisions and has a court date to see whether a guardian needs to be appointed -appreciate psych input, "Given client's clinical presentation and upcoming hearing to appoint a legal guardian, would say she does not have medical decision making capacity at this time" - Time Spent with Patient Total time spent is greater than 50% in coordination of care (as documented) at patient's floor/unit and/or counseling patient: Internal Medicine: Result - Labs CBC & Chem 7: 02/01/19 05:11 02/01/19 05:10 - ABG Interpretation ABG results: ABG ABG pH 7.44 pH Units (7.32-7.45) 01/31/19 05:31 ABG pCO2 70 mmHg (35-45) H* 01/31/19 05:31 ABG pO2 104 mmHg (85-104) 01/31/19 05:31 ABG O2 Saturation 98 % (95-98) 01/31/19 05:31 Consult Discharge Plan - Plan Referrals: Reinaldo Carrion Jr, MD [Partnered Physician] - (Patient is going to [facility] no PCP appointment needed) (2) Pneumonia Qualifiers: Pneumonia type: aspiration pneumonia Laterality: bilateral Lung location: lower lobe of lung Qualified Code(s): J69.0 - Pneumonitis due to inhalation of food and vomit (5) Diabetes Qualifiers: Diabetes mellitus type: type 2 Diabetes mellitus 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
[2019-02-05] MEDS: Nicotine 21 MG PATCH.TD24 TD SCH (14:16)
[2019-02-05] MEDS ORDERED: Insulin DETEMIR 100 UNIT/ML X5UNITS SQ SCH (21:00)
[2019-02-05] MEDS: Melatonin 3 MG TABLET PO SCH (21:50)
[2019-02-05] MEDS: risperiDONE 1 MG TABLET PO SCH (21:50)
[2019-02-06] MEDS: Ipratropium/Albuterol Neb 3 ML IH SCH ×7 (00:11→23:50)
[2019-02-06] MEDS: *HR* Heparin 5,000 UNIT/ML VIAL SQ SCH ×2 (06:04→17:12)
[2019-02-06] MEDS: Budesonide Neb 0.5 MG/2 ML IH SCH ×2 (07:06→19:39)
[2019-02-06] MEDS: Insulin LISPRO 300 UNITS/3 ML VIAL SQ SCH ×6 (09:24→17:12)
[2019-02-06] MEDS: Divalproex Sodium 125 MG CAPSULE PO SCH ×2 (09:35→21:17)
[2019-02-06] MEDS: Gabapentin 100 MG CAPSULE PO SCH ×3 (09:35→21:18)
[2019-02-06] MEDS: risperiDONE 0.25 MG TABLET PO SCH (09:35)
[2019-02-06] MEDS: predniSONE 20 MG TABLET PO SCH (09:35)
[2019-02-06] MEDS: amLODIPine 5 MG TABLET PO SCH (09:35)
[2019-02-06] MEDS: Acetaminophen 325 MG TABLET PO PRN ×2 (09:35→21:25)
[2019-02-06] MEDS: Saline Nasal Spray 44 ML BOTTLE NS PRN (09:48)
[2019-02-06] MEDS: Nicotine 21 MG PATCH.TD24 TD SCH (12:51)
--- NOTE | 2019-02-06 13:21 | Internal Med Progress Note ---
Hospitalist Progress Note - Encounter Date of Encounter: 02/06/19 Time of Encounter: 09:45 - Subjective Interval History: Seen at bedside. Had low blood sugar levels today in the mornign and was given glucose for that.Was asymptomatic.No other complaints. Denies chest pain, SOB. Feeling Ok. - Exam Vitals: Temp Pulse Resp BP Pulse Ox 99.3 F 81 23 118/66 96 02/06/19 11:24 02/06/19 11:24 02/06/19 11:24 02/06/19 11:24 02/06/19 11:24 Exam: General: Alert, no physical distress, able to follow commands. Respiratory: Normal vesicular breathing, no added sounds, breathing sounds decreased in both lung bases CVS: Normal heart sounds, no murmurs, no edema. Extremities: No peripheral edema, peripheral pulses intact. Lymph nodes: No lymphadenopathy Gastrointestinal: Soft, nontender abdomen, normal abdominal sounds. No distention noted. Genitourinary: No paravertebral tenderness. Neurological: Alert and oriented. No focal deficits. Cranial nerves II-XII intact. - Assessment and Plan (1) Acute and chronic respiratory failure with hypercapnia Current Visit: Yes Status: Acute Assessment and Plan: Likely due to pneumonia with COPD exacerbation. CT scan consistent with severe emphysema as well as bilateral mild to moderate consolidation at the posterior lung bases, suggesting possible aspiration -Completed antibiotcs Currently on prednisone taper. Continue bronchodilators. Tachypne ais also contributed by the anxiety, still requiring PRN seroquel. (2) Pneumonia Current Visit: Yes Status: Suspected Assessment and Plan: -Resolved -Management plan outlined above (3) Acute exacerbation of chronic obstructive airways disease Current Visit: Yes Status: Acute Assessment and Plan: -Stroid taper -BPAP as needed -Bronchodilators PRN (4) DVT prophylaxis Current Visit: Yes Status: Acute Assessment and Plan: -SQ heparin (5) Diabetes Current Visit: Yes Status: Chronic Assessment and Plan: -Insulin dose was increased yestedday but she dropped the blood glucose levels today in the morning. -We will decrease the dsoe of levemir to 14 U at bedtime again -Continue lispro at 15 U with meals. -Will contiue to monitor the BGM -Consistent carb diet (6) Hypertension Current Visit: Yes Status: Chronic Assessment and Plan: -BP within reaonable limits -Cont amlodipine (7) Nicotine use disorder Current Visit: Yes Status: Acute Assessment and Plan: -Motivated to quit smoking -smoking cessation encouraged -nicotine replacement therapy (8) Schizophrenia Current Visit: Yes Status: Chronic Assessment and Plan: -continue home meds -there is a concern on whether she has full capacity to make her own medical decisions and has a court date to see whether a guardian needs to be appointed -appreciate psych input, "Given client's clinical presentation and upcoming hearing to appoint a legal guardian, would say she does not have medical decision making capacity at this time" (9) Diabetic neuropathy Current Visit: Yes Status: Acute Assessment and Plan: -Continue gabapentin - Summary of Assessment and Plan Summary of Assessment and Plan: CAn be discharged from medical point of view, wroking on the placement currently . - Time Spent with Patient Total time spent is greater than 50% in coordination of care (as documented) at patient's floor/unit and/or counseling patient: Internal Medicine: Result - Labs CBC & Chem 7: 02/01/19 05:11 02/01/19 05:10 - ABG Interpretation ABG results: ABG ABG pH 7.44 pH Units (7.32-7.45) 01/31/19 05:31 ABG pCO2 70 mmHg (35-45) H* 01/31/19 05:31 ABG pO2 104 mmHg (85-104) 01/31/19 05:31 ABG O2 Saturation 98 % (95-98) 01/31/19 05:31 Consult Discharge Plan - Plan Referrals: Reinaldo Carrion Jr, MD [Partnered Physician] - (Patient is going to [facility] no PCP appointment needed) (2) Pneumonia Qualifiers: Pneumonia type: aspiration pneumonia Laterality: bilateral Lung location: lower lobe of lung Qualified Code(s): J69.0 - Pneumonitis due to inhalation of food and vomit (5) Diabetes Qualifiers: Diabetes mellitus type: type 2 Diabetes mellitus superintendent terminal insulin use: with superintendent terminal use Diabetes mellitus complication status: with hyperglycemia Qualified Code(s): E11.65 - Type 2 diabetes mellitus with hyperglycemia; Z79.4 - half-way (current) use of insulin (6) Hypertension Qualifiers: Hypertension type: unspecified Qualified Code(s): I10 - Essential (primary) hypertension (8) Schizophrenia Qualifiers: Schizophrenia type: unspecified Qualified Code(s): F20.9 - Schizophrenia, unspecified (9) Diabetic neuropathy Qualifiers: Diabetes mellitus type: type 2 Diabetes mellitus complication detail: diabetic polyneuropathy Qualified Code(s): E11.42 - Type 2 diabetes mellitus with diabetic polyneuropathy
[2019-02-06] MEDS: risperiDONE 1 MG TABLET PO SCH (21:17)
[2019-02-06] MEDS: Melatonin 3 MG TABLET PO SCH (21:18)
[2019-02-06] MEDS: Insulin DETEMIR 100 UNIT/ML X5UNITS SQ SCH (21:22)
[2019-02-07] MEDS: Ipratropium/Albuterol Neb 3 ML IH SCH ×6 (03:44→23:47)
[2019-02-07] MEDS: *HR* Heparin 5,000 UNIT/ML VIAL SQ SCH ×2 (05:15→18:09)
[2019-02-07] MEDS: Budesonide Neb 0.5 MG/2 ML IH SCH ×2 (07:26→19:37)
[2019-02-07] MEDS: Insulin LISPRO 300 UNITS/3 ML VIAL SQ SCH ×6 (08:06→16:42)
[2019-02-07] MEDS: risperiDONE 0.25 MG TABLET PO SCH (10:42)
[2019-02-07] MEDS: amLODIPine 5 MG TABLET PO SCH (10:42)
[2019-02-07] MEDS: Gabapentin 100 MG CAPSULE PO SCH ×3 (10:42→21:21)
[2019-02-07] MEDS: Divalproex Sodium 125 MG CAPSULE PO SCH ×2 (10:42→21:16)
[2019-02-07] MEDS: predniSONE 20 MG TABLET PO SCH (10:42)
[2019-02-07] MEDS: Acetaminophen 325 MG TABLET PO PRN ×3 (10:42→21:31)
[2019-02-07] MEDS: Albuterol 2.5 MG/3 ML NEBULIZER IH PRN (10:46)
[2019-02-07] MEDS: Nicotine 21 MG PATCH.TD24 TD SCH (12:26)
--- NOTE | 2019-02-07 13:07 | Internal Med Progress Note ---
Hospitalist Progress Note - Encounter Date of Encounter: 02/07/19 Time of Encounter: 09:00 - Subjective Interval History: Seen at bedside,is feeling SOB today but saturations are normal. Deneis any cough or phlegm. No fever and chils reported. No overnight events. - Exam Vitals: Temp Pulse Resp BP Pulse Ox 98.4 F 87 18 118/72 100 02/07/19 10:56 02/07/19 10:56 02/07/19 10:56 02/07/19 10:56 02/07/19 10:56 Exam: General: Alert, no physical distress, able to follow commands. Respiratory: Normal vesicular breathing, no added sounds, breathing sounds decr eased in both lung bases CVS: Normal heart sounds, no murmurs, no edema. Extremities: No peripheral edema, peripheral pulses intact. Gastrointestinal: Soft, nontender abdomen, normal abdominal sounds. No distention noted. Genitourinary: No paravertebral tenderness. Neurological: Alert and oriented. No focal deficits. Cranial nerves II-XII intact. - Assessment and Plan (1) Acute and chronic respiratory failure with hypercapnia Current Visit: Yes Status: Acute Assessment and Plan: Likely due to pneumonia with COPD exacerbation. CT scan consistent with severe emphysema as well as bilateral mild to moderate consolidation at the posterior lung bases, suggesting possible aspiration -Completed antibiotcs Currently on prednisone taper. Continue bronchodilators. Continue BiPAP as needed -Has dysone but sturatiosn OK, suspect could be related to the anxiety. On PRN seroquel. (2) Pneumonia Current Visit: Yes Status: Suspected Assessment and Plan: -Resolved -Management plan outlined above (3) Acute exacerbation of chronic obstructive airways disease Current Visit: Yes Status: Acute Assessment and Plan: -Stroid taper -BPAP as needed -Bronchodilators PRN (4) DVT prophylaxis Current Visit: Yes Status: Acute Assessment and Plan: -SQ heparin (5) Diabetes Current Visit: Yes Status: Chronic Assessment and Plan: -Blood glucose levels better controlled today. -We will continue the same regiemn. (6) Hypertension Current Visit: Yes Status: Chronic Assessment and Plan: -BP within reaonable limits, most recent is 118/72 -Cont amlodipine (7) Nicotine use disorder Current Visit: Yes Status: Acute Assessment and Plan: -Motivated to quit smoking -smoking cessation encouraged -nicotine replacement therapy (8) Schizophrenia Current Visit: Yes Status: Chronic Assessment and Plan: -continue home meds -there is a concern on whether she has full capacity to make her own medical decisions and has a court date to see whether a guardian needs to be appointed -appreciate psych input, "Given client's clinical presentation and upcoming hearing to appoint a legal guardian, would say she does not have medical decision making capacity at this time" (9) Diabetic neuropathy Current Visit: Yes Status: Acute Assessment and Plan: -Continue gabapentin - Time Spent with Patient Total time spent is greater than 50% in coordination of care (as documented) at patient's floor/unit and/or counseling patient: Internal Medicine: Result - Labs CBC & Chem 7: 02/01/19 05:11 02/01/19 05:10 - ABG Interpretation ABG results: ABG ABG pH 7.44 pH Units (7.32-7.45) 01/31/19 05:31 ABG pCO2 70 mmHg (35-45) H* 01/31/19 05:31 ABG pO2 104 mmHg (85-104) 01/31/19 05:31 ABG O2 Saturation 98 % (95-98) 01/31/19 05:31 Consult Discharge Plan - Plan Referrals: Reinaldo Carrion Jr, MD [Partnered Physician] - (Patient is going to [facility] no PCP appointment needed) (2) Pneumonia Qualifiers: Pneumonia type: aspiration pneumonia Laterality: bilateral Lung location: lower lobe of lung Qualified Code(s): J69.0 - Pneumonitis due to inhalation of food and vomit (5) Diabetes Qualifiers: Diabetes mellitus type: type 2 Diabetes mellitus intermediate project manager insulin use: with custodial use Diabetes mellitus complication status: with hyperglycemia Qualified Code(s): E11.65 - Type 2 diabetes mellitus with hyperglycemia; Z79.4 - termite control representative (current) use of insulin (6) Hypertension Qualifiers: Hypertension type: unspecified Qualified Code(s): I10 - Essential (primary) hypertension (8) Schizophrenia Qualifiers: Schizophrenia type: unspecified Qualified Code(s): F20.9 - Schizophrenia, unspecified (9) Diabetic neuropathy Qualifiers: Diabetes mellitus type: type 2 Diabetes mellitus complication detail: diabetic polyneuropathy Qualified Code(s): E11.42 - Type 2 diabetes mellitus with diabetic polyneuropathy
[2019-02-07] MEDS: Melatonin 3 MG TABLET PO SCH (21:16)
[2019-02-07] MEDS: risperiDONE 1 MG TABLET PO SCH (21:18)
[2019-02-07] MEDS: Insulin DETEMIR 100 UNIT/ML X5UNITS SQ SCH (21:21)
[2019-02-08] MEDS: Ipratropium/Albuterol Neb 3 ML IH SCH ×6 (03:44→23:12)
[2019-02-08] MEDS: *HR* Heparin 5,000 UNIT/ML VIAL SQ SCH ×2 (05:09→17:52)
[2019-02-08] MEDS: Budesonide Neb 0.5 MG/2 ML IH SCH ×2 (07:35→20:00)
[2019-02-08] MEDS: Insulin LISPRO 300 UNITS/3 ML VIAL SQ SCH ×6 (07:50→17:52)
[2019-02-08] MEDS: amLODIPine 5 MG TABLET PO SCH (10:31)
[2019-02-08] MEDS: Divalproex Sodium 125 MG CAPSULE PO SCH ×2 (10:31→21:42)
[2019-02-08] MEDS: risperiDONE 0.25 MG TABLET PO SCH (10:31)
[2019-02-08] MEDS: predniSONE 10 MG TABLET PO SCH (10:31)
[2019-02-08] MEDS: Gabapentin 100 MG CAPSULE PO SCH ×3 (10:31→21:41)
--- NOTE | 2019-02-08 13:27 | Internal Med Progress Note ---
Hospitalist Progress Note - Encounter Date of Encounter: 02/08/19 Time of Encounter: 09:10 - Subjective Interval History: Seen at [facility] no acute complaints, no overnight events. Feeling better than yesterday. Patient wants to have a regular diet rather than consistent carb diet. - Exam Vitals: Temp Pulse Resp BP Pulse Ox 97.8 F 75 17 157/85 98 02/08/19 11:44 02/08/19 11:44 02/08/19 11:44 02/08/19 11:44 02/08/19 11:44 Exam: General: Alert, no physical distress, able to follow commands. Respiratory: Normal vesicular breathing, no added sounds, breathing sounds decreased in both lung bases CVS: Normal heart sounds, no murmurs, no edema. Extremities: No peripheral edema, peripheral pulses intact. Gastrointestinal: Soft, nontender abdomen, normal abdominal sounds. No distention noted. Genitourinary: No paravertebral tenderness. Neurological: Alert and oriented. No focal deficits. Cranial nerves II-XII intact. - Assessment and Plan (1) Acute and chronic respiratory failure with hypercapnia Current Visit: Yes Status: Acute Assessment and Plan: Likely due to pneumonia with COPD exacerbation. -Completed antibiotcs Currently on prednisone taper. Continue bronchodilators. Continue BiPAP as needed (2) Pneumonia Current Visit: Yes Status: Suspected Assessment and Plan: -Resolved -Management plan outlined above (3) Acute exacerbation of chronic obstructive airways disease Current Visit: Yes Status: Acute Assessment and Plan: -Stroid taper -BPAP as needed -Bronchodilators PRN -Counseled to stop smoking. (4) DVT prophylaxis Current Visit: Yes Status: Acute Assessment and Plan: -SQ heparin (5) Diabetes Current Visit: Yes Status: Chronic Assessment and Plan: -Patient with glucose levels have been low today. Patient had a stress multivitamin apartment that she wants to go to a regular diet rather than diabetic diet. Explained to the patient that regular diet can elevated blood glucose levels. The patient is adamant. Considering the patient episodes of hypoglycemia, we will change the diet to regular diet with consistent carbohydrates. Reduce the dose of insulin lispro to 12 units with meals. (6) Hypertension Current Visit: Yes Status: Chronic Assessment and Plan: -BP within reaonable limits, -Cont amlodipine (7) Nicotine use disorder Current Visit: Yes Status: Acute Assessment and Plan: -Motivated to quit smoking -smoking cessation encouraged -nicotine replacement therapy (8) Schizophrenia Current Visit: Yes Status: Chronic Assessment and Plan: -continue home meds -there is a concern on whether she has full capacity to make her own medical decisions and has a court date to see whether a guardian needs to be appointed -appreciate psych input, "Given client's clinical presentation and upcoming hearing to appoint a legal guardian, would say she does not have medical decision making capacity at this time" (9) Diabetic neuropathy Current Visit: Yes Status: Acute Assessment and Plan: -Continue gabapentin - Time Spent with Patient Total time spent is greater than 50% in coordination of care (as documented) at patient's floor/unit and/or counseling patient: Internal Medicine: Result - Labs CBC & Chem 7: 02/01/19 05:11 02/01/19 05:10 - ABG Interpretation ABG results: ABG ABG pH 7.44 pH Units (7.32-7.45) 01/31/19 05:31 ABG pCO2 70 mmHg (35-45) H* 01/31/19 05:31 ABG pO2 104 mmHg (85-104) 01/31/19 05:31 ABG O2 Saturation 98 % (95-98) 01/31/19 05:31 Consult Discharge Plan - Plan Referrals: Reinaldo Carrion Jr, MD [Partnered Physician] - (Patient is going to [facility] no PCP randolph ointment needed) (2) Pneumonia Qualifiers: Pneumonia type: aspiration pneumonia Laterality: bilateral Lung location: lower lobe of lung Qualified Code(s): J69.0 - Pneumonitis due to inhalation of food and vomit (5) Diabetes Qualifiers: Diabetes mellitus type: type 2 Diabetes mellitus fpc insulin use: with termination clerk use Diabetes mellitus complication status: with hyperglycemia Qualified Code(s): E11.65 - Type 2 diabetes mellitus with hyperglycemia; Z79.4 - correction (current) use of insulin (6) Hypertension Qualifiers: Hypertension type: essential hypertension Qualified Code(s): I10 - Essential (primary) hypertension (8) Schizophrenia Qualifiers: Schizophrenia type: unspecified Qualified Code(s): F20.9 - Schizophrenia, un specified (9) Diabetic neuropathy Qualifiers: Diabetes mellitus type: type 2 Diabetes mellitus complication detail: diabetic polyneuropathy Qualified Code(s): E11.42 - Type 2 diabetes mellitus with diabetic polyneuropathy
[2019-02-08] MEDS: Nicotine 21 MG PATCH.TD24 TD SCH (14:49)
[2019-02-08] MEDS: Acetaminophen 325 MG TABLET PO PRN ×2 (14:52→21:46)
[2019-02-08] MEDS: Insulin DETEMIR 100 UNIT/ML X5UNITS SQ SCH (21:41)
[2019-02-08] MEDS: Melatonin 3 MG TABLET PO SCH (21:41)
[2019-02-08] MEDS: risperiDONE 1 MG TABLET PO SCH (21:42)
[2019-02-09] MEDS: Ipratropium/Albuterol Neb 3 ML IH SCH ×6 (04:17→23:35)
[2019-02-09] MEDS: *HR* Heparin 5,000 UNIT/ML VIAL SQ SCH ×2 (05:29→17:47)
[2019-02-09] MEDS: Acetaminophen 325 MG TABLET PO PRN ×3 (05:29→23:31)
[2019-02-09] MEDS: Budesonide Neb 0.5 MG/2 ML IH SCH ×2 (07:27→19:51)
[2019-02-09] MEDS: risperiDONE 0.25 MG TABLET PO SCH (08:51)
[2019-02-09] MEDS: amLODIPine 5 MG TABLET PO SCH (08:51)
[2019-02-09] MEDS: predniSONE 10 MG TABLET PO SCH (08:51)
[2019-02-09] MEDS: Gabapentin 100 MG CAPSULE PO SCH ×3 (08:51→23:23)
[2019-02-09] MEDS: Divalproex Sodium 125 MG CAPSULE PO SCH ×2 (08:51→23:22)
[2019-02-09] MEDS: Insulin LISPRO 300 UNITS/3 ML VIAL SQ SCH ×6 (08:52→17:49)
--- NOTE | 2019-02-09 12:03 | Internal Med Progress Note ---
Hospitalist Progress Note - Encounter Date of Encounter: 02/09/19 Time of Encounter: 10:30 - Subjective Interval History: Seen at [facility] no acute complaints, no overnight events. [place] amb[place] complaints. Wants carn liberazlied diet. Waaiting palcement - Exam Vitals: Temp Pulse Resp BP Pulse Ox 98.2 F 70 16 122/63 98 02/09/19 08:11 02/09/19 08:11 02/09/19 08:11 02/09/19 08:11 02/09/19 08:11 Exam: General: Alert, no physical distress, able to follow commands. Respiratory: Normal vesicular breathing, no added sounds, breathing sounds decreased in both lung bases CVS: Normal heart sounds, no murmurs, no edema. Extremities: No peripheral edema, peripheral pulses intact. Gastrointestinal: Soft, nontender abdomen, normal abdominal sounds. No distent ion noted. Genitourinary: No paravertebral tenderness. Neurological: Alert and oriented. No focal deficits. Cranial nerves II-XII intact. - Assessment and Plan (1) Acute and chronic respiratory failure with hypercapnia Current Visit: Yes Status: Acute Assessment and Plan: Likely due to pneumonia with COPD exacerbation. -Completed antibiotcs Currently on prednisone taper. Continue bronchodilators. Continue BiPAP as needed (2) Pneumonia Current Visit: Yes Status: Suspected Assessment and Plan: -Resolved -Management plan outlined above (3) Acute exacerbation of chronic obstructive airways disease Current Visit: Yes Status: Acute Assessment and Plan: -Stroid taper -BPAP as needed -Bronchodilators PRN -Counseled to stop smoking. (4) DVT prophylaxis Current Visit: Yes Status: Acute Assessment and Plan: -SQ heparin (5) Diabetes Current Visit: Yes Status: Chronic Assessment and Plan: -Patient with glucose levels have WNL Order regular diet as per pt wshes. Explained the risks -Continue insulin lispro to 12 units with meals. -Continue deteemir at the current dose (6) Hypertension Current Visit: Yes Status: Chronic Assessment and Plan: -BP within reaonable limits, -Cont amlodipine (7) Nicotine use disorder Current Visit: Yes Status: Acute Assessment and Plan: -Motivated to quit smoking -smoking cessation encouraged -nicotine replacement therapy (8) Schizophrenia Current Visit: Yes Status: Chronic Assessment and Plan: -continue home meds -there is a concern on whether she has full capacity to make her own medical decisions and has a court date to see whether a guardian needs to be appointed -appreciate psych input, "Given client's clinical presentation and upcoming hearing to appoint a legal guardian, would say she does not have medical decision making capacity at this time" (9) Diabetic neuropathy Current Visit: Yes Status: Acute Assessment and Plan: -Continue gabapentin. -No new compalirns - Time Spent with Patient Total time spent is greater than 50% in coordination of care (as documented) at patient's floor/unit and/or counseling patient: Internal Medicine: Result - Labs CBC & Chem 7: 02/01/19 05:11 02/01/19 05:10 - ABG Interpretation ABG results: ABG ABG pH 7.44 pH Units (7.32-7.45) 01/31/19 05:31 ABG pCO2 70 mmHg (35-45) H* 01/31/19 05:31 ABG pO2 104 mmHg (85-104) 01/31/19 05:31 ABG O2 Saturation 98 % (95-98) 01/31/19 05:31 Consult Discharge Plan - Plan Referrals: Reinaldo Carrion Jr, MD [Partnered Physician] - (Patient is going to [facility] no PCP appointment needed) (2) Pneumonia Qualifiers: Pneumonia type: aspiration pneumonia Laterality: bilateral Lung location: lower lobe of lung Qualified Code(s): J69.0 - Pneumonitis due to inhalation of food and vomit (5) Diabetes 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 control representative insulin use: with usp use Diabetes mellitus complication status: with hyperglycemia Qualified Code(s): E11.65 - Type 2 diabetes mellitus with hyperglycemia; Z79.4 - [facility]CI (current) use of insulin (6) Hypertension Qualifiers: Hypertension type: essential hypertension Qualified Code(s): I10 - Essential (primary) hypertension (8) Schizophrenia Qualifiers: Schizophrenia type: unspecified Qualified Code(s): F20.9 - Schizophrenia, unspecified (9) Diabetic neuropathy Qualifiers: Diabetes mellitus type: type 2 Diabetes mellitus complication detail: diabetic polyneuropathy Qualified Code(s): E11.42 - Type 2 diabetes mellitus with diabetic polyneuropathy
[2019-02-09] MEDS: Nicotine 21 MG PATCH.TD24 TD SCH (15:21)
[2019-02-09] MEDS: Melatonin 3 MG TABLET PO SCH (23:23)
[2019-02-09] MEDS: risperiDONE 1 MG TABLET PO SCH (23:23)
[2019-02-09] MEDS: Insulin DETEMIR 100 UNIT/ML X5UNITS SQ SCH (23:23)
[2019-02-10] MEDS: Ipratropium/Albuterol Neb 3 ML IH SCH ×5 (03:24→20:13)
[2019-02-10] MEDS: *HR* Heparin 5,000 UNIT/ML VIAL SQ SCH ×2 (06:40→17:32)
[2019-02-10] MEDS: Budesonide Neb 0.5 MG/2 ML IH SCH ×2 (07:39→20:13)
[2019-02-10] MEDS: Insulin LISPRO 300 UNITS/3 ML VIAL SQ SCH ×6 (07:45→17:16)
[2019-02-10] MEDS: risperiDONE 0.25 MG TABLET PO SCH (08:19)
[2019-02-10] MEDS: Divalproex Sodium 125 MG CAPSULE PO SCH ×2 (08:19→21:36)
[2019-02-10] MEDS: Gabapentin 100 MG CAPSULE PO SCH ×3 (08:20→21:36)
[2019-02-10] MEDS: amLODIPine 5 MG TABLET PO SCH (08:20)
[2019-02-10] MEDS: predniSONE 10 MG TABLET PO SCH (08:20)
[2019-02-10] MEDS: Nicotine 21 MG PATCH.TD24 TD SCH (11:01)
--- NOTE | 2019-02-10 14:12 | Internal Med Progress Note ---
Hospitalist Progress Note - Encounter Date of Encounter: 02/10/19 Time of Encounter: 09:45 - Subjective Interval History: Seen at [facility] no acute complaints, no overnight events. [place] complaints. Awaiting placemnt - Exam Vitals: Temp Pulse Resp BP Pulse Ox 97.5 F L 69 17 130/79 99 02/10/19 11:14 02/10/19 11:14 02/10/19 11:14 02/10/19 11:14 02/10/19 11:14 Exam: General: Alert, no physical distress, able to follow commands. Respiratory: Normal vesicular breathing, no added sounds, breathing sounds decreased in both lung bases CVS: Normal heart sounds, no murmurs, no edema. Extremities: No peripheral edema, peripheral pulses intact. Gastrointestinal: Soft, nontender abdomen, normal abdominal sounds. No distention noted. Genitourinary: No paravertebral tenderness. Neurological: Alert and oriented. No focal deficits. Cranial nerves II-XII intact. - Assessment and Plan (1) Acute and chronic respiratory failure with hypercapnia Current Visit: Yes Status: Acute Assessment and Plan: Likely due to pneumonia with COPD exacerbation. -Completed antibiotcs Currently on prednisone taper. Continue bronchodilators. Continue BiPAP as needed (2) Pneumonia Current Visit: Yes Status: Suspected Assessment and Plan: -Resolved -Management plan outlined above (3) Acute exacerbation of chronic obstructive airways disease Current Visit: Yes Status: Acute Assessment and Plan: -Stroid taper -BPAP as needed -Bronchodilators PRN -Counseled to stop smoking. (4) DVT prophylaxis Current Visit: Yes Status: Acute Assessment and Plan: -SQ heparin (5) Diabetes Current Visit: Yes Status: Chronic Assessment and Plan: -Patient blood glucose leve shannon elevated toiday -Likely becasue of the carb liberal diet -As mentioned earlier , pt has been adamant for the reglar diet rather miah diabetic diet adn she was explained the consequences, she still wants to continue the regular diet. -Increase the insulin lispro with the meals to 16 U with meals -Continue deteemir at the current dose (6) Hypertension Current Visit: Yes Status: Chronic Assessment and Plan: -BP within reaonable limits, -Cont amlodipine (7) Nicotine use disorder Current Visit: Yes Status: Acute Assessment and Plan: -Motivated to quit smoking -smoking cessation encouraged -nicotine replacement therapy (8) Schizophrenia Current Visit: Yes Status: Chronic Assessment and Plan: -continue home meds -there is a concern on whether she has full capacity to make her own medical decisions and has a court date to see whether a guardian needs to be appointed -appreciate psych input, "Given client's clinical presentation and upcoming hearing to appoint a legal guardian, would say she does not have medical decision making capacity at this time" (9) Diabetic neuropathy Current Visit: Yes Status: Acute Assessment and Plan: -Continue gabapentin. -No new compalirns - Time Spent with Patient Total time spent is greater than 50% in coordination of care (as documented) at patient's floor/unit and/or counseling patient: Internal Medicine: Result - Labs CBC & Chem 7: 02/01/19 05:11 02/01/19 05:10 - ABG Interpretation ABG results: ABG ABG pH 7.44 pH Units (7.32-7.45) 01/31/19 05:31 ABG pCO2 70 mmHg (35-45) H* 01/31/19 05:31 ABG pO2 104 mmHg (85-104) 01/31/19 05:31 ABG O2 Saturation 98 % (95-98) 01/31/19 05:31 Consult Discharge Plan - Plan Referrals: Reinaldo Carrion Jr, MD [Partnered Physician] - (Patient is going to [facility] no PCP appointment needed) (2) Pneumonia Qualifiers: Pneumonia type: aspiration pneumonia Laterality: bilateral Lung location: lower lobe of lung Qualified Code(s): J69.0 - Pneumonitis due to inhalation of food and vomit (5) Diabetes Qualifiers: Diabetes mellitus type: type 2 Diabetes mellitus terminal press operator insulin use: with terminal press operator use Diabetes mellitus complication status: with hyperglycemia Qualified Code(s): E11.65 - Type 2 diabetes mellitus with hyperglycemia; Z79.4 - intermodal owner operator truck driver (current) use of insulin (6) Hypertension Qualifiers: Hypertension type: essential hypertension Qualified Code(s): I10 - Essential (primary) hypertension (8) Schizophrenia Qualifiers: Schizophrenia type: unspecified Qualified Code(s): F20.9 - Schizophrenia, unspecified (9) Diabetic neuropathy Qualifiers: Diabetes mellitus type: type 2 Diabetes mellitus complication detail: diabetic polyneuropathy Qualified Code(s): E11.42 - Type 2 diabetes mellitus with diabetic polyneuropathy
[2019-02-10] MEDS: *HR* LORazepam 0.5 MG TABLET PO PRN ×2 (15:02→21:36)
[2019-02-10] MEDS: Melatonin 3 MG TABLET PO SCH (21:36)
[2019-02-10] MEDS: risperiDONE 1 MG TABLET PO SCH (21:36)
[2019-02-10] MEDS: Acetaminophen 325 MG TABLET PO PRN (21:36)
[2019-02-10] MEDS: Insulin DETEMIR 100 UNIT/ML X5UNITS SQ SCH (23:01)
[2019-02-11] MEDS: Ipratropium/Albuterol Neb 3 ML IH SCH ×4 (04:40→10:28)
[2019-02-11 05:46] LABS: Hematocrit 30.3 % (35.3-44.9); Hemoglobin 9.1 g/dL (11.5-15.4); Mean Corpuscular Hemoglobin 28.4 pg (28.0-33.3); Mean Corpuscular Volume 94.7 fL (83.0-100.0); Mean Platelet Volume 10.6 fL (9.4-12.4); Platelet Count 207 K/mcL (140-400); Red Cell Distribution Width 16.4 % (11.5-14.5); White Blood Count 10.6 K/mcL (4.3-11.1)
[2019-02-11 06:08] LABS: BUN/Creatinine Ratio 33 (6-26); Blood Urea Nitrogen 24 mg/dL (8-23); Calcium 9.2 mg/dL (8.6-10.3); Carbon Dioxide 37 mEq/L (23-29); Chloride 96 mEq/L (98-107); Glucose 144 mg/dL (70-105); Osmolality,Calculated 299 (280-300); Potassium 4.3 mEq/L (3.5-5.1); Sodium 141 mEq/L (136-145); eGFR For African Americans > 60 (> 60); eGFR For Non-African Americans > 60 (> 60)
[2019-02-11] MEDS: *HR* Heparin 5,000 UNIT/ML VIAL SQ SCH (06:36)
[2019-02-11] MEDS: Budesonide Neb 0.5 MG/2 ML IH SCH (07:19)
[2019-02-11] MEDS: Insulin LISPRO 300 UNITS/3 ML VIAL SQ SCH ×4 (07:45→11:47)
[2019-02-11] MEDS: amLODIPine 5 MG TABLET PO SCH (07:57)
[2019-02-11] MEDS: *HR* LORazepam 0.5 MG TABLET PO PRN ×2 (07:58→13:17)
[2019-02-11] MEDS: Nicotine 21 MG PATCH.TD24 TD SCH (07:58)
[2019-02-11] MEDS: risperiDONE 0.25 MG TABLET PO SCH (07:59)
[2019-02-11] MEDS: Divalproex Sodium 125 MG CAPSULE PO SCH (07:59)
[2019-02-11] MEDS: Gabapentin 100 MG CAPSULE PO SCH ×2 (07:59→13:17)
[2019-02-11] MEDS ORDERED: predniSONE 5 MG TABLET PO SCH (09:00)
[2019-02-11 12:46] VITALS: BP 110/56
--- NOTE | 2019-02-11 13:00 | Discharge Summary ---
- NOTES TO OUTPATIENT PROVIDER Notes to Outpatient Provider: Patient is a 73-year-old female with past medical history of COPD on home O2, schizophrenia presented to the hospital with complaining off currently breathing. Patient found to have COPD exacerbation. Hospital course was uneventful. Patient completed antibiotics. Patient requires intermittent BiPAP at night and patient is on 3 L of nasal cannula as per home oxygen requirement. Patient is going to alf facility. Patient will need follow-up after discharge from alf facility. Orders not resulted at time of discharge: Pending orders 01/24/19 09:47 Culture,Sputum with Gram Stain [RM] Routine Estimated PT Needs at Discharge: SNF/ECF Date of Encounter: 02/11/19 Time of Encounter: 12:57 - Discharge Diagnosis (1) Pneumonia Priority: Secondary Status: Suspected Qualifiers: Pneumonia type: aspiration pneumonia Laterality: bilateral Lung location: lower lobe of lung Qualified Code(s): J69.0 - Pneumonitis due to inhalation of food and vomit (2) Acute exacerbation of chronic obstructive airways disease Priority: Primary Status: Acute (3) DVT prophylaxis Priority: Secondary Status: Chronic (4) Diabetes Priority: Secondary Status: Chronic Qualifiers: Diabetes mellitus type: type 2 Diabetes mellitus manager terminal insulin use: with mcfp use Diabetes mellitus complication status: with hyperglycemia Qualified Code(s): E11.65 - Type 2 diabetes mellitus with hyperglycemia; Z79.4 - MCC (current) use of insulin (5) Hypertension Priority: Secondary Status: Chronic Qualifiers: Hypertension type: essential hypertension Qualified Code(s): I10 - Essential (primary) hypertension (6) Nicotine use disorder Priority: Secondary Status: Chronic (7) Schizophrenia Priority: Secondary Status: Chronic Qualifiers: Schizophrenia type: unspecified Qualified Code(s): F20.9 - Schizophrenia, unspecified (8) Acute and chronic respiratory failure with hypercapnia Priority: Secondary Status: Chronic (9) Diabetic neuropathy Priority: Secondary Status: Chronic Qualifiers: Diabetes mellitus type: type 2 Diabetes mellitus complication detail: diabetic polyneuropathy Qualified Code(s): E11.42 - Type 2 diabetes mellitus with diabetic polyneuropathy Hospital course: Ms. Stanley is a 73 year old female with past medical history of COPD and schizophrenia was presented to the hospital with complaint of respiratory difficulty. Patient found to have COPD exacerbation and pneumonia. Patient hospital course was uneventful. Patient completed the antibiotic. Patient continued to require intermittent BiPAP at night. Patient continued to require oxygen on nasal cannula it was determined by flow. Patient was discharged to alf facility. Patient was discharged in stable condition. Patient is to follow-up with primary care provider after discharging from the alf facility. Discharge discussed with: patient, family, nurse, social work, case management - Time Spent with Patient Total time spent providing and/or coordinating discharge services:40 Time spent: Greater than 30 minutes - Discharge Medications Prescriptions: New LORazepam [Ativan] 0.5 mg PO Q8HR PRN 7 Days #21 tablet PRN Reason: Anxiety Nicotine Patch [Nicoderm] 21 mg TD DAILY patch.td24 amLODIPine [Norvasc] 10 mg PO DAILY tablet Acetaminophen [Tylenol] 650 mg PO Q4HR PRN tablet PRN Reason: Pain Insulin DETEMIR [Levemir] 14 unit SQ HS [id number] Insulin LISPRO [HumaLOG] 16 units SQ TIDAC vial Continued Insulin Glargine [Lantus] 10 unit SQ QPM Metformin HCl [Fortamet] 1,000 mg PO BID Fluticasone/Vilanterol [Breo Ellipta 100-25 Mcg INH] 1 puff IH DAILY risperiDONE [Risperdal] 0.5 mg PO 0800 Divalproex Sodium [Depakote] 125 mg PO BID Ipratropium/Albuterol Neb [Duoneb] 3 ml IH Q4HR Gabapentin [Neurontin] 100 mg PO TID Escitalopram Oxalate 5 mg PO DAILY Trazodone HCl 50 mg PO QPM PRN PRN Reason: Insomnia risperiDONE [Risperidone] 1 mg PO 1200 predniSONE [PredniSONE] 10 mg PO DAILY Melatonin [Melatin] 6 mg PO HS Discontinued Insulin LISPRO [HumaLOG] 2 - 10 units SQ TIDWM Home Medications: Escitalopram Oxalate 5 mg PO DAILY 01/16/19 [History] Gabapentin [Neurontin] 100 mg PO TID 01/16/19 [History] Ipratropium/Albuterol Neb [Duoneb] 3 ml IH Q4HR 01/16/19 [History] Melatonin [Melatin] 6 mg PO HS 01/16/19 [History] Trazodone HCl 50 mg PO QPM PRN 01/16/19 [History] predniSONE [PredniSONE] 10 mg PO DAILY 01/16/19 [History] risperiDONE [Risperidone] 1 mg PO 1200 01/16/19 [History] Insulin Glargine [Lantus] 10 unit SQ QPM 01/23/19 [History] Metformin HCl [Fortamet] 1,000 mg PO BID 01/23/19 [History] Divalproex Sodium [Depakote] 125 mg PO BID 01/24/19 [History] Fluticasone/Vilanterol [Breo Ellipta 100-25 Mcg INH] 1 puff IH DAILY 01/24/19 [History] risperiDONE [Risperdal] 0.5 mg PO 0800 01/24/19 [History] Acetaminophen [Tylenol] 650 mg PO Q4HR PRN tablet 02/11/19 [Rx] Insulin DETEMIR [Levemir] 14 unit SQ HS [id number] 02/11/19 [Rx] Insulin LISPRO [HumaLOG] 16 units SQ TIDAC vial 02/11/19 [Rx] LORazepam [Ativan] 0.5 mg PO Q8HR PRN 7 Days #21 tablet 02/11/19 [Rx] Nicotine Patch [Nicoderm] 21 mg TD DAILY patch.td24 02/11/19 [Rx] amLODIPine [Norvasc] 10 mg PO DAILY tablet 02/11/19 [Rx] Allergies/Adverse Reactions: Allergy/AdvReac Type Severity Reaction Status Date / Time No Known Allergies Allergy Verified 01/23/19 15:56 Date of admission: 01/25/19 15:28 Primary care physician: PCP NONE Consults: 01/23/19 21:46 Consult to Nutrition [CONS] Routine Comment: Consulting Provider: NUTRITION Reason for Dietary Consult: MST Score Consult to Pastoral Services [CONS] Routine Comment: Consult to Retail Business Manager [CONS] Routine Reason for SW Consult: Placement on discharge 01/23/19 22:38 Consult to Nurse Navigator [CONS] Routine Comment: 01/24/19 10:41 Consult to Critical Care [CONS] Stat Consulting Provider: Pulm [facility] [place] Reason for Consult: AHRF for intubation Call Completed: Yes 01/27/19 10:25 Consult to Occupational Therapy [CONS] Routine Comment: Evaluate, develop and implement POC Reason for Consult: ecf placement Does patient have active BEDREST order?: No Is patient medically & hemodynamically stable?: Yes Patient assessed for mobility or mobilized this visit?: No Consult to Physical Therapy [CONS] Routine Comment: Evaluate, develop and implement POC Reason for Consult: ecf placement Does patient have active BEDREST order?: No Is patient medically & hemodynamically stable?: Yes Patient assessed for mobility or mobilized this visit?: No 01/28/19 07:40 Consult to Speech Therapy [CONS] Routine Comment: Evaluate, develop and implement POC Reason for Consult: ?aspiration PNA Call Completed: No 01/30/19 11:54 Consult to Psychiatry [CONS] Routine Consulting Provider: Psychiatry Ursula Reason consult: Medication recommendation Capacity assessment Other reason and/or additional details: advanced COPD pt, poorly controlled anxiety. Also has court date scheduled for guardianship ?lacking capacity to make medical decisions Call Completed: Yes Discharging clinician: Haresh Dumas Anticipated date of discharge: 02/11/19 - Constitutional Vitals: Temp Pulse Resp BP Pulse Ox 97.6 F 73 14 110/56 98 02/11/19 12:43 02/11/19 12:43 02/11/19 10:47 02/11/19 12:43 02/11/19 12:43 General appearance: Present: cooperative, A&O X 3, pleasant, no acute distress, answers questions appropriately Exam: General: Alert and oriented X 3 Respiratory: Normal vesicular breathing, no added sounds, breathing sounds decreased in both lung bases CVS: Normal heart sounds, no murmurs, no edema. Extremities: No peripheral edema, peripheral pulses intact. Gastrointestinal: Soft, nontender abdomen, normal abdominal sounds. No distention noted. Genitourinary: No paravertebral tenderness. Neurological: Alert and oriented. No focal deficits. Cranial nerves II-XII intact. - Patient Status Disposition: Transfer SNF Condition: Fair Functional capacity at discharge: uses cane/walker - Discharge Instructions Follow Up With: Reinaldo Carrion Jr, MD [Partnered Physician] - (Patient is going to ECF no PCP appointment needed) - Diet and Activity Activity: as per physical therapy Diet: diabetic diet
--- NOTE | 2019-02-11 13:12 | Physician Discharge Referral ---
ExtendedCare Referral Info Transfer To: SNF Provider in Charge after Transfer: PCP - Diagnosis (1) Pneumonia Priority: Secondary Status: Suspected (2) Acute exacerbation of chronic obstructive airways disease Priority: Primary Status: Acute (3) DVT prophylaxis Priority: Secondary Status: Chronic (4) Diabetes Priority: Secondary Status: Chronic (5) Hypertension Priority: Secondary Status: Chronic (6) Nicotine use disorder Priority: Secondary Status: Chronic (7) Schizophrenia Priority: Secondary Status: Chronic (8) Acute and chronic respiratory failure with hypercapnia Priority: Secondary Status: Chronic (9) Diabetic neuropathy Priority: Secondary Status: Chronic Prognosis: Fair - Transfer Medications Prescriptions: LORazepam [Ativan] 0.5 mg PO Q8HR PRN 7 Days #21 tablet PRN Reason: Anxiety Home Medications: Escitalopram Oxalate 5 mg PO DAILY 01/16/19 [History] Gabapentin [Neurontin] 100 mg PO TID 01/16/19 [History] Ipratropium/Albuterol Neb [Duoneb] 3 ml IH Q4HR 01/16/19 [History] Melatonin [Melatin] 6 mg PO HS 01/16/19 [History] Trazodone HCl 50 mg PO QPM PRN 01/16/19 [History] predniSONE [PredniSONE] 10 mg PO DAILY 01/16/19 [History] risperiDONE [Risperidone] 1 mg PO 1200 01/16/19 [History] Insulin Glargine [Lantus] 10 unit SQ QPM 01/23/19 [History] Metformin HCl [Fortamet] 1,000 mg PO BID 01/23/19 [History] Divalproex Sodium [Depakote] 125 mg PO BID 01/24/19 [History] Fluticasone/Vilanterol [Breo Ellipta 100-25 Mcg INH] 1 puff IH DAILY 01/24/19 [History] risperiDONE [Risperdal] 0.5 mg PO 0800 01/24/19 [History] Acetaminophen [Tylenol] 650 mg PO Q4HR PRN tablet 02/11/19 [Rx] Insulin DETEMIR [Levemir] 14 unit SQ HS [id number] 02/11/19 [Rx] Insulin LISPRO [HumaLOG] 16 units SQ TIDAC vial 02/11/19 [Rx] LORazepam [Ativan] 0.5 mg PO Q8HR PRN 7 Days #21 tablet 02/11/19 [Rx] Nicotine Patch [Nicoderm] 21 mg TD DAILY patch.td24 02/11/19 [Rx] amLODIPine [Norvasc] 10 mg PO DAILY tablet 02/11/19 [Rx] Allergies/Adverse Reactions: Allergy/AdvReac Type Severity Reaction Status Date / Time No Known Allergies Allergy Verified 01/23/19 15:56 - Respiratory Orders Oxygen / L per min (3 L / min), Other (BiPAP intemittently at night) Smoking Cessation: Smoking cessation has been advised. For more information, call the [place] Tobacco Quit Line at 6-893-GZBD-NOW. - Ancillary Orders May use pressure relief devices daily prn - Advance Directives Code Status: Full Code - Rehabiliation Orders Rehab Potential: Fair Rehab Orders: Evaluation for Physical Therapy, Evaluation for Occupational Therapy CERTIFICATION: I certify that the transfer of the above named patient to an Extended Care Facility is necessary for the continuing treatment of the diagnosis listed. The above information is true and accurate reflection of patient's current condition. Confidential - Redisclosure prohibited without a patient's written consent.
== END 2019-02-11 14:30 | DRG 177 ==
LOC: 2NENU 15:49 → EMEROOARM 15:49 → 2NENU 21:00 → ICNU 01-24 10:57 → SUATTDRO 01-25 15:28 → 2NNU 01-25 19:57 → 3ANU 02-01 14:26
PROVIDERS: ADMIT Internal Medicine; ATTEND Family Medicine